=== PATIENT | male | born 1950 | race Caucasian/White ===

== ENCOUNTER 2020-08-22 12:23 | Emergency (ER) | payer MEDICARE, SELFPAY ==
[2020-08-22 12:35] VITALS: BP 146/98; PULSE 96; RESP 13; TEMP 37.4; O2SAT 96; BMI 33.6
--- NOTE | 2020-08-22 12:41 | ED_ITS ---
HPI - General Adult General Chief complaint: Abdominal Pain Stated complaint: BODY ACHES,SOB,?COVID Time Seen by Provider: 08/22/20 12:41 Source: patient Mode of arrival: EMS Limitations: no limitations History of Present Illness HPI narrative: Patient with abdominal pain, weakness, cough, no fever. His partner has COVID. Onset (ago): hour(s) Severity: moderate Associated symptoms: fever/chills, headaches, malaise and weakness Related Data Allergies Allergy/AdvReac Type Severity Reaction Status Date / Time No Known Allergies Allergy Unverified 04/12/20 15:48 Review of Systems Constitutional: Constitutional: Reports no additional constitutional com plaints Eyes: Eyes: Reports no additional eye complaints ENT: Denies dizziness Cardiovascular: Cardiovascular: Reports no additional cardiovascular complaints Respiratory: Respiratory: Reports as per HPI Gastrointestinal: Gastrointestinal: Reports no additional gastrointestinal complaints Musculoskeletal: Musculoskeletal: Reports no additional musculoskeletal complaints Integumentary/Breasts: Skin/Breast: Denies rash Neurologic: Reports system reviewed and no additional complaints, except as documented, Denies dizziness and Denies Sensory deficit (Neuro) Psychiatric: Psychiatric: Denies anxiety [facility] Past Medical History Medical History Diabetes mellitus, type 2 Hypercholesteremia Hypertension Social History Social History Use of substances other than those prescribed or required for medical reasons: No Any prior treatment program specific to substance use: No Advance Directives: No Advance Directives Information Provided: No Physical Exam Vital Signs: Vital Signs: Last Vital Signs Temp 98.3 F 08/22/20 15:33 Pulse 84 08/22/20 15:33 Resp 20 08/22/20 15:33 BP 163/99 H 08/22/20 15:33 Pulse Ox 96 08/22/20 13:54 Body Mass Index 33.6 Const: Other: coughing General: healthy appearing Nutritional Appearance: average body habitus Orientation/consciousness: oriented to person and patient oriented x3 Limitations: no limitations HENMT: Head: Yes normal to inspection Ears: external ears normal General nose exam: Normal external nose present Mouth: Normal oral and palatal mucosa present and oropharynx normal Throat: Yes posterior oropharynx normal Eyes: General: appearance normal, both eyes and all related structures Neck: Other: supple Neck: Yes normal visual inspection Chest: Chest palpation & inspection: normal inspection of the chest Resp: Auscultation: clear to auscultation bilaterally Cardio: Jugular venous distension: no JVD Rate: regular rate Rhythm: regular rhythm Heart sounds: S1 normal heart sound present and S2 normal heart sound present GI: Other: abdomen is soft but tender from coughing Inspection: Yes normal to inspection Palpation (GI): Soft to palpation, nontender and No hepatosplenomegaly present Auscultation: normal bowel sounds : General: Yes no CVA tenderness Back/Spine/Pelvis: Back: no CVA tenderness Skin: General skin exam: no rashes or lesions noted Neuro: General: oriented to person and patient oriented x3 Cranial nerves: Yes CN's II-XII intact bilaterally Motor exam (neuro): 5/5 motor strength present throughout Sensory Exam: No Sensory deficit (Neuro) Extrem: General: Yes normal to inspection Psych: Appearance: grossly normal Course Course Course Narrative: Patient with COVID, has interstitial infiltrates consistent with COVID but normal oxygen will dc home Medical Decision Making [facility] Narrative Medical decision making narrative: Considered COVID, URI, abdominal process Lab Data Result diagrams: 08/22/20 13:07 08/22/20 14:29 Labs: Lab Results 08/22/20 08/22/20 08/22/20 Range/Units 13:07 13:07 14:29 WBC 3.8 L (4.8-10.8) X10*3/uL RBC 4.66 (4.60-5.80) X10*6/uL Hgb 14.9 (14.0-18.0) g/dl Hct 43.8 (42-52) % MCV 94.0 (80-98) fL MCH 32.0 (27.0-33.0) pg MCHC 34.0 (31.0-36.0) g/dl RDW 12.4 (11.0-16.0) % Plt Count 126 L (160-400) X10*3/uL MPV 9.9 (9.4-12.4) fL Immature Gran % (Auto) 0.3 (0.0-0.4) % Neut % (Auto) 53.3 (45-73) % Lymph % (Auto) 34.1 (20-40) % [place] % (Auto) 12.0 H (2-11) % Eos % (Auto) 0.0 (0-4) % Baso % (Auto) 0.3 (0-2) % Lymph # (Auto) 1.3 (1.2-4.9) X10*3/uL [place] # (Auto) 0.5 (0.1-1.2) X10*3/uL Eos # (Auto) 0.0 (0.0-0.4) X10*3/uL Baso # (Auto) 0.0 (0.0-0.2) X10*3/uL Abs Immat Gran (auto) 0.01 (0.00-0.03) X10*3/uL Absolute Neuts (auto) 2.0 (2.0-8.3) X10*3/uL Absolute Nucleated RBC 0.000 (0.0-0.012) X10*3/uL Nucleated RBC % (auto) 0.0 (0.0-0.2) /100WBC Sodium 135 (135-145) mmol/L Potassium 3.6 (3.3-5.1) mmol/l Chloride 107 (96-108) mmol/L Carbon Dioxide 20 L (22-29) mmol/L Anion Gap 12 (12-20) BUN 13 (9-16) mg/dL Creatinine 1.01 (0.5-1.4) mg/dL Estim Creat Clear Calc 68.4 Estimated GFR > 60 Random Glucose 124 H (60-115) mg/dL Calcium 7.3 L (8.4-10.2) mg/dL Coronavirus (PCR) POSITIVE A (Negative) Influenza Type A (PCR) NEGATIVE (Negative) Influenza Type B (PCR) NEGATIVE (Negative) RSV RNA Qual (PCR) NEGATIVE (Negative) Discharge Plan Discharge Clinical Impression: COVID-19 Patient Disposition: Home, Self-Care Instructions: COVID-19 (Coronavirus Disease 2019) (ED) Referrals: Physician,Unknown [Primary Care Provider] - 2 days
--- NOTE | 2020-08-22 12:52 | XR_ITS ---
EXAMINATION: XR CHEST CLINICAL INFORMATION: Cough. COMPARISON: None TECHNIQUE: Frontal view of the chest was obtained. FINDINGS: Lungs are well-expanded with bilateral patchy opacities likely interstitial pneumonitis. No consolidation seen. No pleural effusion. The heart size and pulmonary vasculature is normal. No gross bony abnormality. XR/XR chest 1V IMPRESSION: Bilateral patchy opacities, question interstitial pneumonitis. Recommend follow-up chest x-ray 7-10 days after treatment.
[2020-08-22] MEDS: Ketorolac Tromethamine 30 MG/ML VIAL IVPUSH (13:11)
[2020-08-22] MEDS: 0.9 % Sodium Chloride 1,000 ML 999 ML IVCONT ×2 (13:12→13:54)
[2020-08-22 13:14] LABS: MANUAL DIFF FLAG NO
[2020-08-22 13:18] LABS: Basophils Percent Auto 0.3 % (0-2); Hematocrit 43.8 % (42-52); Hemoglobin 14.9 g/dl (14.0-18.0); Imm Gran Abs Auto 0.01 X10*3/uL (0.00-0.03); Imm Gran Pct Auto 0.3 % (0.0-0.4); Lymphocytes Absolute Auto 1.3 X10*3/uL (1.2-4.9); Lymphocytes Percent Auto 34.1 % (20-40); Mean Platelet Volume 9.9 fL (9.4-12.4); Monocytes Absolute Auto 0.5 X10*3/uL (0.1-1.2); Neutrophils Percent Auto 53.3 % (45-73); Platelet Count 126 X10*3/uL (160-400); Red Blood Count 4.66 X10*6/uL (4.60-5.80); Red Cell Distribution Width 12.4 % (11.0-16.0); White Blood Count 3.8 X10*3/uL (4.8-10.8)
[2020-08-22 13:54] VITALS: BP 153/94; PULSE 88; RESP 15; O2SAT 96
[2020-08-22 14:02] LABS: Influenza A PCR NEGATIVE (Negative); Influenza B PCR NEGATIVE (Negative); Resp Syncy Virus RNA Qual PCR NEGATIVE (Negative); SARS COV2 PCR INHOUSE POSITIVE (Negative)
[2020-08-22 15:14] LABS: Anion Gap 12 (12-20); Blood Urea Nitrogen 13 mg/dL (9-16); Carbon Dioxide 20 mmol/L (22-29); Chloride 107 mmol/L (96-108); Creatinine Clr Calc Pharmacy 68.4; Estimated Glomerular Filt Rate > 60; Glucose Random 124 mg/dL (60-115); Potassium 3.6 mmol/l (3.3-5.1); Sodium 135 mmol/L (135-145)
[2020-08-22 15:23] LABS: Calcium 7.3 mg/dL (8.4-10.2)
[2020-08-22 15:33] VITALS: BP 163/99; PULSE 84; RESP 20; TEMP 36.8
== END 2020-08-22 16:05 | disposition home or self-care (01) ==
PROVIDERS: Emergency Provider Emergency Medicine
DX: U07.1 COVID-19 (principal); R51.9 Headache, unspecified; R05 Cough; M79.10 Myalgia, unspecified site
CPT/HCPCS: 0241U; 36415; 71045; 80048; 85025; 96361; 96374; 99284; J1885

== ENCOUNTER 2020-09-03 11:26 | Emergency (ER) | payer MEDICARE, SELFPAY ==
--- NOTE | 2020-09-03 11:28 | ED.SOB ---
HPI - SOB/Dyspnea General Chief Complaint: General Medical Stated Complaint: DIFF BREATHING,+COVID Time Seen by Provider: 09/03/20 11:28 Source: patient and EMS Mode of arrival: EMS Limitations: no limitations History of Present Illness HPI Narrative: dx with COVID 08/22 here with R sided sinus pain and congestion - states it is causing discomfort has not been taking OTC medications, BP up on arrival but much lower on rechekc - taking his medications as Rx MD elicited complaint: shortness of breath (SINUS congestion not shortness of breath) Pertinent past history: diabetes Onset (ago): day(s) (2) Context: recent illness (COVID positive) Timing: constant Severity: mild Exacerbating factors: nothing Relieving factors: nothing Associated symptoms: denies other symptoms Treatment prior to arrival: none Related Data Previous Rx's Medication Instructions Recorded amoxicillin-pot clavulanate 1 tab PO BID #14 tab 09/03/20 [Augmentin] prednisone 20 mg PO DAILY 4 Days #4 tab 09/03/20 Allergies Allergy/AdvReac Type Severity Reaction Status Date / Time No Known Allergies Allergy Verified 09/03/20 11:30 Review of Systems Review of Systems: Constitutional : No Fever, No Chills, No Fatigue, No Malaise ENT/Mouth : No sore throat, No Rhinorrhea, sinus pain, nasal congestion Eyes: No Eye Pain, No Swelling, No Redness Cardiovascular : No Chest Pain, No SOB, No Dyspnea on Exertion, No Orthopnea, No Edema, No Palpitations Respiratory : No Cough, No Sputum, No Wheezing Gastrointestinal : No Nausea, No Vomiting, No Diarrhea, No Constipation, No abdominal Pain, No Hematochezia, No Melena Genitourinary : No Dysuria, No Urinary Frequency, No Hematuria, Musculoskeletal : No joint pain, No Myalgias, No Joint Swelling Skin : No Skin Lesions, No rash Neuro : No Weakness, No Numbness, No Dizziness, No Headache PMFSH Past Medical History Attestation statement: The following information was validated with the patient. Medical History Diabetes mellitus, type 2 Hypercholesteremia Hypertension Social History Social History (Updated 09/03/20 @ 11:57 by Oneyda Rivera DO) Smoking Status: Never smoker Advance Directives: No Advance Directives Information Provided: No Physical Exam Vital Signs: Vital Signs: Last Vital Signs Temp 98.7 F 09/03/20 11:30 Pulse 85 09/03/20 11:30 Resp 20 09/03/20 11:30 BP 200/127 H 09/03/20 11:30 Pulse Ox 98 09/03/20 11:30 Body Mass Index 31.9 Appearance: Alert. Oriented X3. No acute distress. Eyes: Pupils equal, round and reactive to light. ENT: Pharynx normal. R max sinus mild swelling moderate ttp - R nares very swollen boggy turbinate Neck: Normal inspection. Neck supple. CVS: Normal heart rate and rhythm. Pulses normal. Respiratory: No respiratory distress. Breath sounds normal. Abdomen: Soft and nontender. Skin: Skin warm and dry. Normal skin color. Normal skin turgor. Extremities: No lower extremity edema. No calf ttp Neuro: Oriented X 3. No motor deficit. No sensory deficit. Course Course Course Narrative: repeat BP 165/105 has no headache CP SOB just feels pressure R max sinus area, not toxic, no neuro deficits MDM - SOB/Dyspnea MDM Narrative Medical decision making narrative: 70 yo male with DM and HTN dx with COVID 08/22 has no complaints other than R nostril being stuffed up - no headache/chest pain/sob - he has sinusitis clinically and on exam, BP markedly lower will start on augmentin nasal spary x 1, low dose steroids normal neuro exam, no hypoxia doing well Discharge Plan Discharge Clinical Impression: Sinusitis Qualifiers: Sinusitis location: maxillary Chronicity: acute Recurrence: non-recurrent Qualified Code(s): J01.00 - Acute maxillary sinusitis, unspecified Patient Disposition: Home, Self-Care Instructions: Sinusitis (ED) Additional Instructions: return to ED for any worsening symptoms or concerns monitor blood sugars prednisone can raise your blood sugars Prescriptions: New prednisone 20 mg tablet 20 mg PO DAILY 4 Days Qty: 4 RF: 0 amoxicillin-pot clavulanate [Augmentin] 875-125 mg tablet 1 tab PO BID Qty: 14 RF: 0 Referrals: Physician,Unknown [Primary Care Provider] - 2 days (if not better, recheck BP tomorrow)
[2020-09-03 11:30] VITALS: BP 180/120; BP 200/127; PULSE 85; PULSE 90; RESP 20; TEMP 37.1; O2SAT 98; BMI 31.9
[2020-09-03 11:52] VITALS: BP 165/108
[2020-09-03] MEDS: predniSONE 20 MG TABLET PO (12:00)
[2020-09-03] MEDS: Amoxicillin/Potassium Clav 875 MG TABLET PO (12:00)
[2020-09-03] MEDS: Oxymetazoline HCl 0.05 % Nasal 15 ML SPRAY 2 SPRAY NOSTRIL-B (12:00)
== END 2020-09-03 12:28 | disposition home or self-care (01) ==
PROVIDERS: Emergency Provider Emergency Medicine
DX: J01.00 Acute maxillary sinusitis, unspecified (principal); Z86.16 Personal history of COVID-19; E11.9 Type 2 diabetes mellitus without complications; I10 Essential (primary) hypertension
CPT/HCPCS: 99283

== ENCOUNTER 2020-12-21 12:16 | Outpatient (REF) | payer MEDICARE, SELFPAY | END 2020-12-21 12:17 | disposition home or self-care (01) | LOC: HO.LNP 12:16 | PROVIDERS: Visit Provider Specialist | DX: H02.824 Cysts of left upper eyelid (principal) | CPT/HCPCS: 88305 ==

== ENCOUNTER 2020-12-29 22:52 | Emergency (ER) | payer MEDICARE, SELFPAY ==
--- NOTE | ~2020-12-29 | XR_ITS ---
EXAMINATION: XR SHOULDER , RIGHT CLINICAL INFORMATION: Fall COMPARISON: None available at the time of this dictation. TECHNIQUE: AP external rotation, Grashey, scapular Y, and axillary views of the shoulder. FINDINGS: BONES: There is no fracture or dislocation, no osteolytic or osteoblastic lesion. JOINTS: Glenohumeral joint is properly positioned. AC joint is unremarkable. SOFT TISSUE AND INCLUDED LUNG: Normal. XR/XR shoulder RT min 2V IMPRESSION: No fracture or dislocation.
--- NOTE | ~2020-12-29 | XR_ITS ---
EXAMINATION: XR chest 2V CLINICAL INFORMATION: Fall COMPARISON: Prior chest x-ray July 2020 TECHNIQUE: XR chest 2V Lungs and Clari: Both lungs are clear. Pleura: Normal. Costophrenic angles are sharp. No pneumothorax. Heart: The heart is normal in size. Mediastinum: The mediastinum is within normal limits.. Bones: Skeletal structures included are normal for patient's age. XR/XR chest 2V IMPRESSION: No radiographic evidence of acute cardiopulmonary disease.
--- NOTE | ~2020-12-29 | CT_ITS ---
EXAMINATION: CT CHEST WITHOUT CONTRAST CLINICAL INFORMATION: Right chest wall pain COMPARISON: Chest x-ray 12/29/2020 TECHNIQUE: Multidetector volumetric CT imaging of the chest was done. Axial MIP volume rendering provided. Sagittal and coronal reformatted images were obtained. This CT examination was performed using dose optimization techniques as appropriate, variously including the following: *Automated exposure control *Adjustment of mA and/or kV according to patient size (this includes techniques or standardized protocols for targeted exams where dose is matched to indication/reason for exam; i.e. extremities or head) *Use of iterative reconstruction technique DLP: 327 mGy-cm FINDINGS: LUNGS: No regions of consolidation bilaterally. Bullae are noted at the right lung apex. Minimal dependent atelectasis bilaterally. There is a 5 mm right apical lung nodule on image 100/491. MEDIASTINUM: The thyroid gland appears diminutive. There are subcentimeter mediastinal lymph nodes within the range of normal variation. Cardiac size is within normal limits; no pericardial effusion. Coronary artery calcifications are present. Scattered atherosclerotic calcifications are present. PLEURA: There is no pleural effusion. No pleural mass or thickening. AXILLA/CHEST WALL: No focal chest wall abnormality identified. No lymphadenopathy. UPPER ABDOMEN: There is a 3.5 cm left renal cyst. There is a 0.4 cm left renal calculus. OSSEOUS STRUCTURES: Multilevel endplate osteophytes noted in the spine. CT/CT chest wo con IMPRESSION: 1. No chest wall abnormality identified. 2. Coronary artery calcifications. Correlation with cardiac risk factors is recommended. 3. Right upper lobe 5 mm lung nodule. According to the UPDATED 2017 Fleischner Society recommendations, the advised follow-up imaging for solid nodules < 6 mm is: LOW RISK PATIENT: No routine follow-up. HIGH RISK PATIENT: Optional CT at 12 months.
[2020-12-29 22:58] VITALS: BP 147/84; PULSE 72; RESP 20; TEMP 36.3; O2SAT 98; BMI 32.5
--- NOTE | 2020-12-30 02:36 | ED.FALL ---
HPI - Fall General Chief Complaint: Fall Stated Complaint: Shoulder Pain/Fall Time Seen by Provider: 12/30/20 02:36 Source: patient Mode of arrival: ambulatory History of Present Illness HPI Narrative: This is a 70-year-old male who states that he was trying to get out of his automatic recliner became unsteady and fell onto the concrete floor onto his right side this evening after few alcoholic beverages. He does not recall the exact sequence of events but denies hitting his head or loss of consciousness. He is currently complaining of right shoulder and right chest wall discomfort. Related Data Previous Rx's Medication Instructions Recorded amoxicillin-pot clavulanate 1 tab PO BID #14 tab 09/03/20 [Augmentin] prednisone 20 mg PO DAILY 4 Days #4 tab 09/03/20 Allergies Allergy/AdvReac Type Severity Reaction Status Date / Time No Known Allergies Allergy Verified 09/03/20 11:30 Review of Systems Review of Systems: Pertinent positives and negatives as stated in HPI 10 point review of systems is otherwise negative. [facility] Past Medical History Source: nursing notes reviewed Medical History Diabetes mellitus, type 2 Hypercholesteremia Hypertension Social History Social History Advance Directives: No Advance Directives Information Provided: No Physical Exam Vital Signs: Vital Signs: Last Vital Signs Temp 97.4 F 12/29/20 22:58 Pulse 72 12/29/20 22:58 Resp 20 12/29/20 22:58 BP 147/84 H 12/29/20 22:58 Pulse Ox 98 12/29/20 22:58 Body Mass Index 32.5 VITAL SIGNS: Reviewed. GENERAL: Well developed, well nourished, in no acute distress. HEAD: Normocephalic/atraumatic, EYES: PERRLA, EOMI OROPHARYNX: no oral lesions noted, posterior pharynx clear NECK: Supple, no adenopathy LUNGS: Normal breath sounds. No adventitious sounds or accessory muscle use. SpO2<98> CHEST WALL: No crepitus noted on palpation but tenderness across the anterolateral lower ribs CARDIOVASCULAR: Regular rate and rhythm without noted murmurs, no JVD or lower extremity edema. ABDOMEN: Soft, non-tender, non-distended with bowel sounds. Course Course Course Narrative: Is a 70-year-old male with history and clinical presentation consistent with mechanical fall and on review of all imaging there are no acute findings to suggest rib fracture, pneumothorax. Patient was provided with combination analgesics and on re-evaluation has had improvement in his pain. The be discharged home in stable condition. Discharge Plan Discharge Clinical Impression: Chest wall pain Patient Disposition: Home, Self-Care Instructions: Chest Wall Pain (ED) Additional Instructions: 1. Reanude todos los medicamentos caseros seg?n lo prescrito. 2. Se recomienda el uso de Tylenol 1000 mg, por v?a oral, cada 6 horas seg?n sea necesario para controlar el dolor. No exceda los 4000 mg en 24 horas. 3. Se recomienda el uso de parche de lidoca?na, est? disponible sin receta, se aplica en el ?paige de m?ximo dolor jason se indica en el paquete exterior. 4. Shelton un seguimiento con bailey proveedor de atenci?n primaria en los pr?ximos 2-3 d?as para riley reevaluaci?n. Regrese a la elier de emergencias si los s?ntomas empeoran. Prescriptions: No Action prednisone 20 mg tablet 20 mg PO DAILY 4 Days Qty: 4 RF: 0 amoxicillin-pot clavulanate [Augmentin] 875-125 mg tablet 1 tab PO BID Qty: 14 RF: 0 Referrals: Physician,Unknown [Primary Care Provider] - 2 days Print Language: Slovak
[2020-12-30] MEDS: Acetaminophen 325 MG TABLET 975 MG PO (03:01)
[2020-12-30] MEDS: Lidocaine 4 % Patch ADH..PATCH 1 PATCH TRANSDERMA (03:02)
[2020-12-30] MEDS: Ibuprofen 400 MG TABLET PO (03:02)
[2020-12-30 04:00] VITALS: BP 148/72; PULSE 89; RESP 18; TEMP 36.8; O2SAT 97
[2020-12-30 06:00] VITALS: BP 138/78; PULSE 80; RESP 18; TEMP 36.6; O2SAT 98
== END 2020-12-30 06:29 | disposition home or self-care (01) ==
PROVIDERS: Emergency Provider Student in an Organized Health Care Education/Training Program
DX: R07.89 Other chest pain (principal); M25.511 Pain in right shoulder; E11.9 Type 2 diabetes mellitus without complications; E78.00 Pure hypercholesterolemia, unspecified; I10 Essential (primary) hypertension; Z91.81 History of falling; Z86.16 Personal history of COVID-19
CPT/HCPCS: 71046; 71250; 73030; 99284

== ENCOUNTER 2022-07-17 09:56 | Outpatient (REF) | payer MEDICARE, SELFPAY ==
--- NOTE | ~2022-07-17 | XR_ITS ---
EXAMINATION: XR RIBS, RIGHT CLINICAL INFORMATION: Pain COMPARISON: Previous chest x-ray and chest CT December 2020 TECHNIQUE: 3 views of the right ribs and one view of the chest were obtained. FINDINGS: Lungs are clear. No consolidation, pneumothorax, or pleural effusion. The cardiomediastinal silhouette and pulmonary vasculature are normal. Degenerative changes of the spine. Ribs are intact. No fractures are identified. XR/XR ribs RT min 3V w CXR1V IMPRESSION: Unremarkable right ribs and chest x-ray.
--- NOTE | ~2022-07-17 | XR_ITS ---
EXAMINATION: XR THORACOLUMBAR SPINE CLINICAL INFORMATION: Back pain. No known trauma. COMPARISON: CT chest 12/30/2020, chest and right ribs 07/17/2022 TECHNIQUE: Thoracic spine is imaged in 3 views. FINDINGS: There is normal thoracic vertebral segmentation with 12 rib-bearing thoracic vertebrae of normal height and normal thoracic kyphosis. There is no vertebral compression, spondylolisthesis, destructive process, or paraspinal soft tissue swelling. Again, there is mild multilevel degenerative disc changes mid to lower thoracic spine with variable mild disc narrowing and vertebral spurring. XR/XR thoracic spine 2V IMPRESSION: 1. Mild multilevel degenerative disc changes mid and lower thoracic spine. 2. No vertebral compression, spondylolisthesis, or destructive process.
== END 2022-07-17 09:57 | disposition home or self-care (01) ==
LOC: HO.XRAY 09:56
PROVIDERS: PCP Internal Medicine; Visit Provider Internal Medicine
DX: M54.6 Pain in thoracic spine (principal); R07.81 Pleurodynia
CPT/HCPCS: 71101; 72070

== ENCOUNTER 2022-08-01 13:38 | Outpatient (REF) | payer MEDICARE, SELFPAY ==
--- NOTE | ~2022-08-01 | CT_ITS ---
EXAMINATION: CT ABDOMEN AND PELVIS WITHOUT CONTRAST CLINICAL INFORMATION: Flank pain COMPARISON: None TECHNIQUE: Multidetector volumetric imaging was performed from the superior aspect of the liver through the pubic symphysis. Sagittal and coronal reformatted images were obtained on the technologist's workstation. This CT examination was performed using dose optimization techniques as appropriate, variously including the following: *Automated exposure control *Adjustment of mA and/or kV according to patient size (this includes techniques or standardized protocols for targeted exams where dose is matched to indication/reason for exam; i.e. extremities or head) *Use of iterative reconstruction technique DLP: 558 mGy-cm FINDINGS: LUNG BASES: The visualized lung bases are unremarkable. LIVER, GALLBLADDER, AND BILIARY TREE: There is a cyst along the anterior margin of the liver. Although evaluation is limited without IV contrast, no suspicious or concerning liver lesion seen. The gallbladder is unremarkable with no evidence of radiopaque gallstones, gallbladder wall thickening, or obvious pericholecystic inflammatory changes. PANCREAS: Unremarkable. SPLEEN: Unremarkable. ADRENAL GLANDS: Unremarkable. KIDNEYS AND URETERS: 4.7 cm simple cyst exophytic from the anterior cortex of the left kidney. 1 cm cyst exophytic from the posterior cortex of the upper pole the right kidney. No imaging follow-up recommended for these simple cysts. There is a 4 mm nonobstructing calculus in the upper pole the left kidney adjacent the cyst. No hydronephrosis. BLADDER: Unremarkable. GASTROINTESTINAL TRACT: Stomach and small bowel are nondilated. Normal appendix. Sigmoid diverticulosis. No evidence of colitis or diverticulitis. ABDOMINAL WALL: Small fat-containing umbilical hernia. LYMPH NODES: Normal. VASCULAR: Circumferential calcified atherosclerotic changes of the normal caliber abdominal aorta. PELVIC VISCERA: Unremarkable. OSSEOUS STRUCTURES: No acute or suspicious osseous abnormality. CT/CT abdomen pelvis wo IV con IMPRESSION: No acute CT findings. No significant change from prior study. Fleischner guidelines were followed.
== END 2022-08-01 13:39 | disposition home or self-care (01) ==
LOC: HO.CT 13:38
PROVIDERS: PCP Internal Medicine; Visit Provider Internal Medicine
DX: N20.0 Calculus of kidney (principal)
CPT/HCPCS: 74176

== ENCOUNTER 2023-01-04 07:39 | Observation (INO) | payer MEDICARE, SELFPAY ==
[2023-01-04] VITALS (8 sets, daily range): BP systolic 120–204; BP diastolic 80–115; PULSE 75–93; RESP 16–20; TEMP 36.7–37.6; O2SAT 95–99; BMI 34.7
--- NOTE | ~2023-01-04 | CT_ITS ---
EXAMINATION: CT ABDOMEN AND PELVIS WITHOUT CONTRAST CLINICAL INFORMATION: Left lower quadrant pain COMPARISON: Previous CT of the abdomen and pelvis most recent July 2022 TECHNIQUE: Multidetector volumetric imaging was performed from the superior aspect of the liver through the pubic symphysis. Sagittal and coronal reformatted images were obtained on the technologist's workstation. This CT examination was performed using dose optimization techniques as appropriate, variously including the following: *Automated exposure control *Adjustment of mA and/or kV according to patient size (this includes techniques or standardized protocols for targeted exams where dose is matched to indication/reason for exam; i.e. extremities or head) *Use of iterative reconstruction technique DLP: 634 mGy-cm FINDINGS: LUNG BASES: The visualized lung bases are unremarkable. LIVER, GALLBLADDER, AND BILIARY TREE: The liver is low in attenuation suggestive of fatty infiltration. The gallbladder is unremarkable with no evidence of radiopaque gallstones, gallbladder wall thickening, or obvious pericholecystic inflammatory changes. PANCREAS: Unremarkable. SPLEEN: Unremarkable. ADRENAL GLANDS: Unremarkable. KIDNEYS AND URETERS: Bilateral low-attenuation renal lesions suggestive of cysts, largest measuring 4 cm in the upper pole of the left kidney. No imaging follow-up recommended. Small 3 mm left upper pole renal stone. BLADDER: Unremarkable. GASTROINTESTINAL TRACT: Diverticulosis of the colon. Wall thickening of the distal left and proximal sigmoid colon. There is stranding of the surrounding fat. Findings are suggestive of diverticulitis. Fat stranding tracks along the lower left anterior pararenal fascia. Potential developing abscess in this region should be considered no evidence of obstruction or free air. The small and large bowel are otherwise normal. The appendix is normal. The stomach is normal. ABDOMINAL WALL: No significant hernia is appreciated. LYMPH NODES: Normal. VASCULAR: Atherosclerotic disease. No aneurysm. PELVIC VISCERA: Unremarkable. OSSEOUS STRUCTURES: Mild degenerative changes of the spine. CT/CT abdomen pelvis wo IV con IMPRESSION: Diverticulitis of the distal left and proximal sigmoid colon. There is extensive stranding of the fat tracking along the left inferior anterior pararenal fascia. Developing abscess should be considered. No evidence of perforation or obstruction. Fatty liver. Small left renal stone. Fleischner guidelines were followed.
[2023-01-04 08:07] LABS: MANUAL DIFF FLAG NO
[2023-01-04 08:08] LABS: Basophils Percent Auto 0.2 % (0-2); Eosinophils Absolute Auto 0.1 X10*3/uL (0.0-0.4); Eosinophils Percent Auto 0.7 % (0-4); Hematocrit 38.6 % (42.0-52.0); Hemoglobin 13.2 g/dl (14.0-18.0); Imm Gran Abs Auto 0.03 X10*3/uL (0.00-0.03); Imm Gran Pct Auto 0.2 % (0.0-0.4); Lymphocytes Absolute Auto 1.9 X10*3/uL (1.2-4.9); Lymphocytes Percent Auto 15.3 % (20-40); Mean Corpuscular HGB Conc 34.2 g/dl (31.0-36.0); Mean Corpuscular Hemoglobin 32.2 pg (27.0-33.0); Mean Corpuscular Volume 94.1 fL (80.0-98.0); Mean Platelet Volume 9.9 fL (9.4-12.4); Monocytes Percent Auto 8.1 % (2-11); Neutrophils Absolute Auto 9.4 x10*3/uL (2.0-8.3); Neutrophils Percent Auto 75.5 % (45-73); Platelet Count 191 X10*3/uL (160-400); Red Cell Distribution Width 12.4 % (11.0-16.0); White Blood Count 12.5 X10*3/uL (4.8-10.8)
[2023-01-04 08:26] LABS: Alanine Aminotransferase 23 U/L (0-40); Alkaline Phosphatase 68 U/L (39-117); Anion Gap 16 (12-20); Aspartate Amino Transferase 17 U/L (5-37); Bilirubin Total 0.9 mg/dL (0.0-1.0); Blood Urea Nitrogen 15 mg/dL (9-16); Calcium 9.1 mg/dL (8.4-10.2); Carbon Dioxide 21 mmol/L (22-29); Chloride 105 mmol/L (96-108); Creatinine Clr Calc Pharmacy 61.5; Estimated Glomerular Filt Rate > 60; Glucose Random 155 mg/dL (60-115); Potassium 3.9 mmol/L (3.3-5.1); Sodium 138 mmol/L (135-145); Total Protein 7.8 g/dL (6.5-8.0)
--- NOTE | 2023-01-04 09:00 | PC.NURSE ---
alert and oriented, resp even and unlabored. pt hypertensive at this time, pt states did not take home meds for hypertension this morning. complaining of abd pain radiating to his back, feels same as diverticulitis.
--- NOTE | 2023-01-04 09:16 | ED_ITS ---
HPI - Abdominal Pain General Chief Complaint: Abdominal Pain Stated Complaint: back and groin pain Time Seen by Provider: 01/04/23 08:53 Source: patient Mode of arrival: ambulatory History of Present Illness HPI narrative: 72-year-old male with history of hypertension and diabetes presents with left lower quadrant pain for 2 days with some mild nausea but no vomiting and no fevers/chills and denies any urinary difficulties. Patient states that he has not been drinking much as he thought that the pain would resolve. Related Data Previous Rx's Medication Instructions Recorded amoxicillin 875 mg-potassium 1 tab PO BID #14 tabs 09/03/20 clavulanate 125 mg tablet (Augmentin) prednisone 20 mg tablet 20 mg PO DAILY 4 days #4 tabs 09/03/20 Allergies Allergy/AdvReac Type Severity Reaction Status Date / Time No Known Allergies Allergy Verified 09/03/20 11:30 Review of Systems Review of Systems Pertinent positives and negatives as stated in HPI PMFSH Past Medical History Source: nursing notes reviewed Medical History Diabetes mellitus, type 2 Hypercholesteremia Hypertension Social History Social History Smoked in Last 30 Days: No Advance Directives: No Physical Exam ED Vital Signs: Vital Signs - 24 hr 01/04/23 07:44 01/04/23 08:33 01/04/23 10:12 Temperature 98.2 F 98.1 F 98.6 F Pulse Rate 93 85 86 Respiratory Rate 18 18 16 Blood Pressure 204/104 H 195/99 H 178/95 H Pulse Oximetry 99 99 97 Oxygen Delivery Method Room Air Room Air Room Air 01/04/23 11:35 Temperature 98.5 F Pulse Rate 75 Respiratory Rate 16 Blood Pressure 188/95 H Pulse Oximetry 98 Oxygen Delivery Method Room Air BMI result Body Mass Index 34.7 VITAL SIGNS: Reviewed. GENERAL: Well developed, well nourished, in no acute distress. HEAD: Normocephalic/atraumatic EYES: PERRLA, EOMI OROPHARYNX: no oral lesions noted, posterior pharynx clear NECK: Supple, no adenopathy LUNGS: Normal breath sounds. No adventitious sounds or accessory muscle use. SpO2<99> CARDIOVASCULAR: Regular rate and rhythm without noted murmurs ABDOMEN: Soft, left lower quadrant pain without rebound,, non-distended with bowel sounds. MUSCULOSKELETAL: No tenderness, deformities, or effusions noted on gross inspection. EXTREMITIES: No cyanosis, clubbing or edema. SKIN: Inspection of the skin reveals no rashes NEUROLOGIC: Alert and oriented x 4. Strength and sensation to light touch were grossly intact x 4. Medical Decision Making Medical Decision Making [facility] Narrative: 0917: I suspect infection, diverticulitis, lactic acid/blood culture/antibiotics ordered as well as IV fluids though patient does not meet current criteria for sepsis fluids. I reviewed all investigations and given CT scan findings in the context of patient's diabetes I am discussing with general surgery regarding admission for 24 hours of IV antibiotics. I also spoke with inpatient hospitalist who accepts admission. Dr. Pino will consult on the patient. Differential Diagnosis Please see the discussion above Consult Healthcare Provider Management of the patient was discussed with: Hospitalist and Software Applications Specialist Please see the discussion above Lab Data Please see the discussion above 01/04/23 08:03 01/04/23 08:03 Labs: Lab Results 01/04/23 01/04/23 01/04/23 Range/Units 08:03 08:03 09:47 WBC 12.5 H (4.8-10.8) X10*3/uL RBC 4.10 L (4.60-5.80) X10*6/uL Hgb 13.2 L (14.0-18.0) g/dl Hct 38.6 L (42.0-52.0) % MCV 94.1 (80.0-98.0) fL MCH 32.2 (27.0-33.0) pg MCHC 34.2 (31.0-36.0) g/dl RDW 12.4 (11.0-16.0) % Plt Count 191 (160-400) X10*3/uL MPV 9.9 (9.4-12.4) fL Immature Gran % (Auto) 0.2 (0.0-0.4) % Neut % (Auto) 75.5 H (45-73) % Lymph % (Auto) 15.3 L (20-40) % [place] % (Auto) 8.1 (2-11) % Eos % (Auto) 0.7 (0-4) % Baso % (Auto) 0.2 (0-2) % Lymph # (Auto) 1.9 (1.2-4.9) X10*3/uL [place] # (Auto) 1.0 (0.1-1.2) X10*3/uL Eos # (Auto) 0.1 (0.0-0.4) X10*3/uL Baso # (Auto) 0.0 (0.0-0.2) X10*3/uL Abs Immat Gran (auto) 0.03 (0.00-0.03) X10*3/uL Absolute Neuts (auto) 9.4 H (2.0-8.3) x10*3/uL Absolute Nucleated RBC 0.000 (0.0-0.012) X10*3/uL Nucleated RBC % (auto) 0.0 (0.0-0.2) /100WBC Sodium 138 (135-145) mmol/L Potassium 3.9 (3.3-5.1) mmol/L Chloride 105 (96-108) mmol/L Carbon Dioxide 21 L (22-29) mmol/L Anion Gap 16 (12-20) BUN 15 (9-16) mg/dL Creatinine 1.07 (0.5-1.4) mg/dL Estim Creat Clear Calc 61.5 Estimated GFR > 60 Random Glucose 155 H (60-115) mg/dL Lactic Acid (0.5-2.0) mmol/L Calcium 9.1 D (8.4-10.2) mg/dL Total Bilirubin 0.9 (0.0-1.0) mg/dL AST 17 (5-37) U/L ALT 23 (0-40) U/L Alkaline Phosphatase 68 (39-117) U/L Total Protein 7.8 (6.5-8.0) g/dL Albumin 4.0 (3.5-5.0) g/dL Urine Color Yellow Urine Appearance Clear Urine pH 6.0 (5.0-9.0) Ur Specific [place] 1.015 (1.005-1.025) Urine Protein 100 (2+) H (Neg-Trace) mg/dL Urine Glucose (UA) Negative (Negative) mg/dL Urine Ketones 15 (Negative) mg/dL Urine Blood Negative (Negative) Urine Nitrite Negative (Negative) Ur Leukocyte Esterase Negative (Negative) Urine RBC 0-2 (0-2) /HPF Urine WBC 0-5 (0-5) /HPF Ur Squamous Epith Cells 0-2 (0-2) /HPF Urine Bacteria None Seen (None Seen) Hyaline Casts 0-2 (0-2) /LPF 01/04/23 Range/Units 09:57 WBC (4.8-10.8) X10*3/uL RBC (4.60-5.80) X10*6/uL Hgb (14.0-18.0) g/dl Hct (42.0-52.0) % MCV (80.0-98.0) fL MCH (27.0-33.0) pg MCHC (31.0-36.0) g/dl RDW (11.0-16.0) % Plt Count (160-400) X10*3/uL MPV (9.4-12.4) fL Immature Gran % (Auto) (0.0-0.4) % Neut % (Auto) (45-73) % Lymph % (Auto) (20-40) % [place] % (Auto) (2-11) % Eos % (Auto) (0-4) % Baso % (Auto) (0-2) % Lymph # (Auto) (1.2-4.9) X10*3/uL [place] # (Auto) (0.1-1.2) X10*3/uL Eos # (Auto) (0.0-0.4) X10*3/uL Baso # (Auto) (0.0-0.2) X10*3/uL Abs Immat Gran (auto) (0.00-0.03) X10*3/uL Absolute Neuts (auto) (2.0-8.3) x10*3/uL Absolute Nucleated RBC (0.0-0.012) X10*3/uL Nucleated RBC % (auto) (0.0-0.2) /100WBC Sodium (135-145) mmol/L Potassium (3.3-5.1) mmol/L Chloride (96-108) mmol/L Carbon Dioxide (22-29) mmol/L Anion Gap (12-20) BUN (9-16) mg/dL Creatinine (0.5-1.4) mg/dL Estim Creat Clear Calc Estimated GFR Random Glucose (60-115) mg/dL Lactic Acid 1.2 (0.5-2.0) mmol/L Calcium (8.4-10.2) mg/dL Total Bilirubin (0.0-1.0) mg/dL AST (5-37) U/L ALT (0-40) U/L Alkaline Phosphatase (39-117) U/L Total Protein (6.5-8.0) g/dL Albumin (3.5-5.0) g/dL Urine Color Urine Appearance Urine pH (5.0-9.0) Ur Specific [place] (1.005-1.025) Urine Protein (Neg-Trace) mg/dL Urine Glucose (UA) (Negative) mg/dL Urine Ketones (Negative) mg/dL Urine Blood (Negative) Urine Nitrite (Negative) Ur Leukocyte Esterase (Negative) Urine RBC (0-2) /HPF Urine WBC (0-5) /HPF Ur Squamous Epith Cells (0-2) /HPF Urine Bacteria (None Seen) Hyaline Casts (0-2) /LPF Radiology Impression Radiologist Impression: My interpretation is in agreement with radiology's impression. External Record Review External record reviewed: Prior outpatient labs Medications Administered Discontinued Medications Generic Name Dose Route Start Last Admin Trade Name Freq PRN Reason Stop Dose Admin Atenolol 100 mg 01/04/23 09:15 01/04/23 10:10 Atenolol 100 Mg Tablet PO 01/04/23 09:16 100 mg ONCE ONE Administration Protocol Fentanyl 25 mcg 01/04/23 09:18 01/04/23 10:14 Fentanyl Citrate/Pf 100 Mcg/2 Ml Vial IVPUSH 01/04/23 09:19 25 mcg ONCE ONE Administration Protocol Sodium Chloride 1,000 mls @ 999 mls/hr 01/04/23 09:15 01/04/23 11:35 Ns IV 01/04/23 10:15 Infused .Q1H1M BROWN Infusion Piperacillin Sod/Tazobactam 50 mls @ 100 mls/hr 01/04/23 09:14 01/04/23 10:48 Sod 3.375 gm/ Sodium Chloride IV 01/04/23 09:43 Infused ONCE ONE Infusion Losartan Potassium 100 mg 01/04/23 09:15 01/04/23 10:10 Losartan Potassium 50 Mg Tablet PO 01/04/23 09:16 100 mg ONCE ONE Administration Protocol Discharge Plan Discharge Clinical Impression: Diverticulitis, Diabetes, Hypertension Patient Disposition: Admitted As Inpatient Prescriptions: No Action prednisone 20 mg tablet 20 mg PO DAILY 4 Days Qty: 4 0RF amoxicillin-pot clavulanate [Augmentin] 875-125 mg tablet 1 tab PO BID Qty: 14 0RF
[2023-01-04] MEDS: atenoloL 100 MG TABLET PO (10:10)
[2023-01-04] MEDS: Losartan Potassium 50 MG TABLET 100 MG PO (10:10)
[2023-01-04] MEDS: Piperacillin Sodium/Tazobactam 3.375 GM in 0.9 % Sodium Chloride 50 ML IV ×3 (10:14→22:35)
[2023-01-04] MEDS: 0.9 % Sodium Chloride 1,000 ML 999 ML IV (10:14)
[2023-01-04] MEDS: fentaNYL citrate/PF 100 MCG/2 ML VIAL 25 MCG IVPUSH (10:14)
[2023-01-04 10:16] LABS: Lactic Acid 1.2 mmol/L (0.5-2.0)
--- NOTE | 2023-01-04 10:28 | PC.NURSE ---
iv established, medicated per the mar.
[2023-01-04 10:40] LABS: Appearance Urine Clear; Color Urine Yellow; Glucose Urine UA Negative (Negative); Leukocyte Esterase Urine Negative (Negative); Nitrite Urine Negative (Negative); Specific Gravity - Urine 1.015 (1.005-1.025); UMIC TRIGGER UACC YES; Urine Blood Negative (Negative); Urine Ketones 15 mg/dL (Negative); Urine Protein 100 (2+) mg/dL (Neg-Trace)
[2023-01-04 10:46] LABS: Bacteria Urine None Seen (None Seen); Hyaline Casts Urine 0-2 /LPF (0-2); RBC Urine 0-2 /HPF (0-2); Squamous Epithelial Cell Urine 0-2 /HPF (0-2); WBC Urine 0-5 /HPF (0-5)
--- NOTE | 2023-01-04 12:07 | PM.CNGS ---
History of Present Illness Consult details Consult date: 01/04/23 Narrative: 72-year-old male here in the ER for abdominal pain. He says that he has had this left-sided abdominal pain for about 3-4 days. He says that this radiates all the way to the lower back. He denies any diarrhea or constipation. He describes good bowel movements. He says that he had been diagnosed to have diverticulitis in the past but was not admitted to the hospital. He denies any fever or chills. He denies any urinary complaints. Review of Systems Constitutional: Constitutional: Denies chills and Denies fever(s) Cardiovascular: Cardiovascular: Denies chest pain, Denies dyspnea and Denies dyspnea on exertion Respiratory: Respiratory: Denies cough, Denies dyspnea and Denies dyspnea on exertion Gastrointestinal: Gastrointestinal: Denies hematochezia and Denies change in bowel habits Genitourinary: Genitourinary: Denies hematuria and Denies difficulty urinating Musculoskeletal: Musculoskeletal: Denies back pain and Denies limited range of motion Neurologic: Denies focal weakness and Denies convulsions Psychiatric: Psychiatric: Denies depression and Denies mood swings [facility] Past Medical History Medical History Diabetes mellitus, type 2 Hypercholesteremia Hypertension Social History Social History Household Members: None Housing: Apartment Do you presently have visiting nurse or other home services: No Patient Tobacco Use Status: Former Tobacco user Tobacco use type: Cigarette e-Cigarette/Vaping Use: Never Used Advance Directives: No Advance Directives Information Provided: Yes service: No Current occupational status: retired [employer] Allergies Allergy/AdvReac Type Severity Reaction Status Date / Time No Known Allergies Allergy Verified 09/03/20 11:30 Active Medications: Current Medications Pharmacy Consult (Consult Rx Perform Med Rec) 1 each MISCELLANE ONCE PRN PRN Reason: Consult order Home Medications Medication Instructions Recorded Confirmed Last Taken Type acetaminophen 500 mg tablet 500 mg PO Q6H PRN Fever Or Pain 01/04/23 01/04/23 Unknown History aspirin 81 mg tablet,delayed 81 mg PO DAILY 01/04/23 01/04/23 Unknown History release atenolol 100 mg tablet 100 mg PO DAILY 01/04/23 01/04/23 Unknown History losartan 100 mg tablet 100 mg PO DAILY 01/04/23 01/04/23 Unknown History metformin 500 mg tablet,extended 1,000 mg PO DAILY 01/04/23 01/04/23 Unknown History release 24 hr simvastatin 20 mg tablet 20 mg PO BEDTIME 01/04/23 01/04/23 Unknown History Physical Exam Vital Signs: Vital Signs: Last Vital Signs Temp 98.5 F 01/04/23 11:35 Pulse 75 01/04/23 11:35 Resp 16 01/04/23 11:35 BP 188/95 H 01/04/23 11:35 Pulse Ox 98 01/04/23 11:35 O2 Del Method Room Air 01/04/23 11:35 BMI result Body Mass Index 34.7 Const: Other: Looks well General: comfortable and no acute distress Orientation/consciousness: patient oriented x3 Neck: Neck: Yes no lymphadenopathy Resp: Auscultation: clear to auscultation bilaterally Cardio: Rhythm: regular rhythm GI: Other: mild tenderness on the left flank, left lower quadrant Palpation (GI): Soft to palpation, Tenderness to palpation present (GI) and no guarding Neuro: General: patient oriented x3 Results Labs 01/04/23 08:03 01/04/23 08:03 Labs: Abnormal lab results 01/04/23 01/04/23 01/04/23 Range/Units 08:03 08:03 09:47 WBC 12.5 H (4.8-10.8) X10*3/uL RBC 4.10 L (4.60-5.80) X10*6/uL Hgb 13.2 L (14.0-18.0) g/dl Hct 38.6 L (42.0-52.0) % Neut % (Auto) 75.5 H (45-73) % Lymph % (Auto) 15.3 L (20-40) % Absolute Neuts (auto) 9.4 H (2.0-8.3) x10*3/uL Carbon Dioxide 21 L (22-29) mmol/L Random Glucose 155 H (60-115) mg/dL Urine Protein 100 (2+) H (Neg-Trace) mg/dL Short CBC 01/04/23 Range/Units 08:03 WBC 12.5 H (4.8-10.8) X10*3/uL Hgb 13.2 L (14.0-18.0) g/dl Hct 38.6 L (42.0-52.0) % Plt Count 191 (160-400) X10*3/uL BMP 01/04/23 08:03 Sodium 138 Potassium 3.9 Chloride 105 Carbon Dioxide 21 L BUN 15 Creatinine 1.07 Calcium 9.1 D Liver Function 01/04/23 Range/Units 08:03 Total Bilirubin 0.9 (0.0-1.0) mg/dL AST 17 (5-37) U/L ALT 23 (0-40) U/L Alkaline Phosphatase 68 (39-117) U/L Albumin 4.0 (3.5-5.0) g/dL Urine 01/04/23 Range/Units 09:47 Urine Color Yellow Urine Appearance Clear Urine pH 6.0 (5.0-9.0) Ur Specific [place] 1.015 (1.005-1.025) Urine Protein 100 (2+) H (Neg-Trace) mg/dL Urine Glucose (UA) Negative (Negative) mg/dL All other labs normal. Laboratory Results WBC 12.5 X10*3/uL (4.8-10.8) H 01/04/23 08:03 RBC 4.10 X10*6/uL (4.60-5.80) L 01/04/23 08:03 Hgb 13.2 g/dl (14.0-18.0) L 01/04/23 08:03 Hct 38.6 % (42.0-52.0) L 01/04/23 08:03 MCV 94.1 fL (80.0-98.0) 01/04/23 08:03 MCH 32.2 pg (27.0-33.0) 01/04/23 08:03 MCHC 34.2 g/dl (31.0-36.0) 01/04/23 08:03 RDW 12.4 % (11.0-16.0) 01/04/23 08:03 Plt Count 191 X10*3/uL (160-400) 01/04/23 08:03 MPV 9.9 fL (9.4-12.4) 01/04/23 08:03 Immature Gran % (Auto) 0.2 % (0.0-0.4) 01/04/23 08:03 Neut % (Auto) 75.5 % (45-73) H 01/04/23 08:03 Lymph % (Auto) 15.3 % (20-40) L 01/04/23 08:03 [place] % (Auto) 8.1 % (2-11) 01/04/23 08:03 Eos % (Auto) 0.7 % (0-4) 01/04/23 08:03 Baso % (Auto) 0.2 % (0-2) 01/04/23 08:03 Lymph # (Auto) 1.9 X10*3/uL (1.2-4.9) 01/04/23 08:03 [place] # (Auto) 1.0 X10*3/uL (0.1-1.2) 01/04/23 08:03 Eos # (Auto) 0.1 X10*3/uL (0.0-0.4) 01/04/23 08:03 Baso # (Auto) 0.0 X10*3/uL (0.0-0.2) 01/04/23 08:03 Abs Immat Gran (auto) 0.03 X10*3/uL (0.00-0.03) 01/04/23 08:03 Absolute Neuts (auto) 9.4 x10*3/uL (2.0-8.3) H 01/04/23 08:03 Absolute Nucleated RBC 0.000 X10*3/uL (0.0-0.012) 01/04/23 08:03 Nucleated RBC % (auto) 0.0 /100WBC (0.0-0.2) 01/04/23 08:03 Sodium 138 mmol/L (135-145) 01/04/23 08:03 Potassium 3.9 mmol/L (3.3-5.1) 01/04/23 08:03 Chloride 105 mmol/L (96-108) 01/04/23 08:03 Carbon Dioxide 21 mmol/L (22-29) L 01/04/23 08:03 Anion Gap 16 (12-20) 01/04/23 08:03 BUN 15 mg/dL (9-16) 01/04/23 08:03 Creatinine 1.07 mg/dL (0.5-1.4) 01/04/23 08:03 Estim Creat Clear Calc 61.5 01/04/23 08:03 Estimated GFR > 60 01/04/23 08:03 Random Glucose 155 mg/dL (60-115) H 01/04/23 08:03 Lactic Acid 1.2 mmol/L (0.5-2.0) 01/04/23 09:57 Calcium 9.1 mg/dL (8.4-10.2) D 01/04/23 08:03 Total Bilirubin 0.9 mg/dL (0.0-1.0) 01/04/23 08:03 AST 17 U/L (5-37) 01/04/23 08:03 ALT 23 U/L (0-40) 01/04/23 08:03 Alkaline Phosphatase 68 U/L (39-117) 01/04/23 08:03 Total Protein 7.8 g/dL (6.5-8.0) 01/04/23 08:03 Albumin 4.0 g/dL (3.5-5.0) 01/04/23 08:03 Urine Color Yellow 01/04/23 09:47 Urine Appearance Clear 01/04/23 09:47 Urine pH 6.0 (5.0-9.0) 01/04/23 09:47 Ur Specific [place] 1.015 (1.005-1.025) 01/04/23 09:47 Urine Protein 100 (2+) mg/dL (Neg-Trace) H 01/04/23 09:47 Urine Glucose (UA) Negative mg/dL (Negative) 01/04/23 09:47 Urine Ketones 15 mg/dL (Negative) 01/04/23 09:47 Urine Blood Negative (Negative) 01/04/23 09:47 Urine Nitrite Negative (Negative) 01/04/23 09:47 Ur Leukocyte Esterase Negative (Negative) 01/04/23 09:47 Urine RBC 0-2 /HPF (0-2) 01/04/23 09:47 Urine WBC 0-5 /HPF (0-5) 01/04/23 09:47 Ur Squamous Epith Cells 0-2 /HPF (0-2) 01/04/23 09:47 Urine Bacteria None Seen (None Seen) 01/04/23 09:47 Hyaline Casts 0-2 /LPF (0-2) 01/04/23 09:47 Impressions Abdomen/Pelvis CT 01/04/23 10:16 IMPRESSION: Diverticulitis of the distal left and proximal sigmoid colon. There is extensive stranding of the fat tracking along the left inferior anterior pararenal fascia. Developing abscess should be considered. No evidence of perforation or obstruction. Fatty liver. Small left renal stone. Fleischner guidelines were followed. Assessment and Plan (1) Diverticulitis: Status: Acute He has had had abdominal pain for about 3-4 days. He describes this as [id number]. I have reviewed his CAT scan images, and this shows some inflammatory changes in the distal left colon and sigmoid, as well as on the left perianal space. This consistent with acute diverticulitis There is no drainable abscess. I would recommend admitting him for IV antibiotics. He will be on clear liquids for now. His exam is otherwise benign. He appears to be up-to-date with his colonoscopies. Review of his records show that he was in the ER in 2019 for mild diverticulitis of the sigmoid. As per the ER physician, the patient is being admitted to medical service. I will follow along while he is in the hospital. Time Spent With Patient Time: Total time managing care of this patient today ____ minutes. Procedures Date of Service Date of Service: 01/12/23
--- NOTE | 2023-01-04 13:38 | PM.IMHP ---
History of Present Illness Date of Service: 01/04/23 <Estefany Auguste NP - Last Filed: 01/04/23 14:11> Chief Complaint: Abdominal pain <Estefany Auguste NP - Last Filed: 01/04/23 14:11> 72 year old man presenting to the ED with c/o abdominal pain over the last 2 days. He describes sharp LLQ pain that radiates to his left Lower back area with no nausea, vomiting, diarrhea or fever. He has a history of diverticulitis in the past. Abd CT showing diverticulitis of the distal left and proximal sigmoid colon with fat stramding along the left inferior anterior pararenal fascia. No fever noted. BP mildly elevated. Labs all within acceptable limits. He was given a dose of zosyn and will be placed on observation for acute diverticular pain. <Estefany Auguste NP - Last Filed: 01/04/23 14:11> Review of Systems Review of Systems: Denies any recent fever chills or decrease in appetite respiratory denies any shortness of breath coverage production cardiovascular denied chest pain gastrointestinal LLQ abd pain genitourinary denies any dysuria frequency or hematuria musculoskeletal denies any joint pain or swelling neuropsych denies any weakness or seizures all other systems reviewed are negative <Estefany Auguste NP - Last Filed: 01/04/23 14:11> [facility] Medical History: Medical History Diabetes mellitus, type 2 Hypercholesteremia Hypertension <Estefany Auguste NP - Last Filed: 01/04/23 14:11> Social History: Social History Smoked in Last 30 Days: No Advance Directives: No <Estefany Auguste NP - Last Filed: 01/04/23 14:11> Meds Allergies/Adverse reactions: Allergies Allergy/AdvReac Type Severity Reaction Status Date / Time No Known Allergies Allergy Verified 09/03/20 11:30 <Estefany Auguste NP - Last Filed: 01/04/23 14:11> Active Medications: Current Medications Acetaminophen (Acetaminophen 325 Mg Tablet) 650 mg PO Q6H PRN PRN Reason: Pain, Mild (Pain Scale 1-3) Enoxaparin Sodium (Enoxaparin Sodium 40 Mg/0.4 Ml Syringe) 40 mg SUBCUT Q24H BROWN Ondansetron HCl (Ondansetron Hcl 4 Mg/2 Ml Vial) 4 mg IVPUSH Q8H PRN PRN Reason: Nausea and Vomiting Pharmacy Consult (Consult Rx Perform Med Rec) 1 each MISCELLANE ONCE PRN PRN Reason: Consult order Sodium Chloride (0.9 % Sodium Chloride Flush 3 Ml Syringe) 3 ml IVFLUSH QSHIFT BROWN <Estefany Auguste NP - Last Filed: 01/04/23 14:11> Home medications: Home Medications Medication Instructions Recorded Confirmed Last Taken Type acetaminophen 500 mg tablet 500 mg PO Q6H PRN Fever Or Pain 01/04/23 01/04/23 Unknown History aspirin 81 mg tablet,delayed 81 mg PO DAILY 01/04/23 01/04/23 Unknown History release atenolol 100 mg tablet 100 mg PO DAILY 01/04/23 01/04/23 Unknown History losartan 100 mg tablet 100 mg PO DAILY 01/04/23 01/04/23 Unknown History metformin 500 mg tablet,extended 1,000 mg PO DAILY 01/04/23 01/04/23 Unknown History release 24 hr simvastatin 20 mg tablet 20 mg PO BEDTIME 01/04/23 01/04/23 Unknown History <Estefany Auguste NP - Last Filed: 01/04/23 14:11> Physical Exam Vital Signs and Narrative: Vital Signs: Last Vital Signs Temp 98.5 F 01/04/23 11:35 Pulse 75 01/04/23 11:35 Resp 16 01/04/23 11:35 BP 188/95 H 01/04/23 11:35 Pulse Ox 98 01/04/23 11:35 O2 Del Method Room Air 01/04/23 11:35 BMI result Body Mass Index 34.7 <Estefany Auguste NP - Last Filed: 01/04/23 14:11> Appearing in no acute distress head is normocephalic atraumatic eyes pupils are PERRLA sclera is anicteric mouth throat mucous membranes are intact and moist neck is supple no lymphadenopathy, no JVD noted lung sounds are clear to auscultation heart regular rate rhythm, clear S1, S2 positive bowel sounds, abdomen is soft, nontender neuro patient is alert x3, no focal deficits <Estefany Auguste NP - Last Filed: 01/04/23 14:11> Results Labs CBC and Chem 7: 01/04/23 08:03 01/04/23 08:03 <Estefany Auguste STENCILING MACHINE TENDER - Last Filed: 01/04/23 14:11> Labs: Laboratory Results - last 24 hr 01/04/23 01/04/23 01/04/23 08:03 08:03 09:47 MCV 94.1 MCH 32.2 MCHC 34.2 RDW 12.4 Plt Count 191 MPV 9.9 Immature Gran % (Auto) 0.2 Neut % (Auto) 75.5 H Lymph % (Auto) 15.3 L [place] % (Auto) 8.1 Eos % (Auto) 0.7 Baso % (Auto) 0.2 Lymph # (Auto) 1.9 [place] # (Auto) 1.0 Eos # (Auto) 0.1 Baso # (Auto) 0.0 Abs Immat Gran (auto) 0.03 Absolute Neuts (auto) 9.4 H Absolute Nucleated RBC 0.000 Nucleated RBC % (auto) 0.0 Anion Gap 16 Estim Creat Clear Calc 61.5 Estimated GFR > 60 Random Glucose 155 H Lactic Acid Calcium 9.1 D Total Bilirubin 0.9 AST 17 ALT 23 Alkaline Phosphatase 68 Total Protein 7.8 Albumin 4.0 Urine Color Yellow Urine Appearance Clear Urine pH 6.0 Ur Specific [place] 1.015 Urine Protein 100 (2+) H Urine Glucose (UA) Negative Urine Ketones 15 Urine Blood Negative Urine Nitrite Negative Ur Leukocyte Esterase Negative Urine RBC 0-2 Urine WBC 0-5 Ur Squamous Epith Cells 0-2 Urine Bacteria None Seen Hyaline Casts 0-2 01/04/23 09:57 MCV MCH MCHC RDW Plt Count MPV Immature Gran % (Auto) Neut % (Auto) Lymph % (Auto) [place] % (Auto) Eos % (Auto) Baso % (Auto) Lymph # (Auto) [place] # (Auto) Eos # (Auto) Baso # (Auto) Abs Immat Gran (auto) Absolute Neuts (auto) Absolute Nucleated RBC Nucleated RBC % (auto) Anion Gap Estim Creat Clear Calc Estimated GFR Random Glucose Lactic Acid 1.2 Calcium Total Bilirubin AST ALT Alkaline Phosphatase Total Protein Albumin Urine Color Urine Appearance Urine pH Ur Specific [place] Urine Protein Urine Glucose (UA) Urine Ketones Urine Blood Urine Nitrite Ur Leukocyte Esterase Urine RBC Urine WBC Ur Squamous Epith Cells Urine Bacteria Hyaline Casts <Estefany Auguste NP - Last Filed: 01/04/23 14:11> Imaging Radiologist's Impressions: Impressions Abdomen/Pelvis CT 01/04/23 10:16 IMPRESSION: Diverticulitis of the distal left and proximal sigmoid colon. There is extensive stranding of the fat tracking along the left inferior anterior pararenal fascia. Developing abscess should be considered. No evidence of perforation or obstruction. Fatty liver. Small left renal stone. Fleischner guidelines were followed. <Estefany Auugste NP - Last Filed: 01/04/23 14:11> Assessment and Plan (1) Diverticulitis: Status: Acute <Estefany Auguste NP - Last Filed: 01/04/23 14:11> 72 year old man admitted with acute diverticulitis Diverticulitis, acute start Zosyn pain management clear liquid diet for now advance as tolerated HTN continue home medications DM2 sliding scale HLD asa, hld DVT prophylaxis with Lovenox full code obs <Estefany Auguste NP - Last Filed: 01/04/23 14:11> Time Spent With Patient Time: Total time managing care of this patient today ____ minutes. <Estefany Auguste NP - Last Filed: 01/04/23 14:11> Quality Stroke Does the patient have a stroke diagnosis?: No <Gaurav Enrique MD - Last Filed: 01/04/23 14:58> VTE Prior VTE?: No <Gaurav Enrique MD - Last Filed: 01/04/23 14:58> VTE Risk Level:: Medical - moderate - high <Estefany Auguste NP - Last Filed: 01/04/23 14:11> VTE Device Contraindication: Treatment Not Indicated <Estefany Auguste NP - Last Filed: 01/04/23 14:11> VTE Drug Contraindication: N/A - Med Ordered <Estefany Auguste NP - Last Filed: 01/04/23 14:11>
--- NOTE | 2023-01-04 13:54 | PHA.MEDREC ---
Pharmacy Consult ? Medication Reconciliation Pharmacy has completed the medication reconciliation. spoke with patient. He confirmed all of his medications.
[2023-01-04] MEDS: Enoxaparin Sodium 40 MG/0.4 ML SYRINGE SUBCUT (15:29)
[2023-01-04 16:48] LABS: Glucose, Whole Blood 133 mg/dL (60-115)
[2023-01-04] MEDS: 0.9 % Sodium Chloride Flush 3 ML SYRINGE IVFLUSH ×2 (16:52→22:36)
[2023-01-04 20:38] LABS: Glucose, Whole Blood 173 mg/dL (60-115)
[2023-01-05 03:25] VITALS: BP 140/77; PULSE 81; RESP 18; TEMP 37.1; O2SAT 95
[2023-01-05] MEDS: Piperacillin Sodium/Tazobactam 3.375 GM in 0.9 % Sodium Chloride 50 ML IV (04:27)
[2023-01-05 05:41] LABS: MANUAL DIFF FLAG NO
[2023-01-05 05:50] LABS: Basophils Percent Auto 0.3 % (0-2); Eosinophils Absolute Auto 0.1 X10*3/uL (0.0-0.4); Eosinophils Percent Auto 1.2 % (0-4); Hematocrit 36.2 % (42.0-52.0); Hemoglobin 12.2 g/dl (14.0-18.0); Imm Gran Abs Auto 0.05 X10*3/uL (0.00-0.03); Imm Gran Pct Auto 0.4 % (0.0-0.4); Lymphocytes Absolute Auto 2.3 X10*3/uL (1.2-4.9); Mean Corpuscular HGB Conc 33.7 g/dl (31.0-36.0); Mean Corpuscular Hemoglobin 32.4 pg (27.0-33.0); Mean Corpuscular Volume 96.3 fL (80.0-98.0); Mean Platelet Volume 10.2 fL (9.4-12.4); Monocytes Absolute Auto 1.1 X10*3/uL (0.1-1.2); Monocytes Percent Auto 9.6 % (2-11); Neutrophils Absolute Auto 7.7 x10*3/uL (2.0-8.3); Neutrophils Percent Auto 68.5 % (45-73); Platelet Count 175 X10*3/uL (160-400); Red Blood Count 3.76 X10*6/uL (4.60-5.80); Red Cell Distribution Width 12.5 % (11.0-16.0); White Blood Count 11.3 X10*3/uL (4.8-10.8)
[2023-01-05 06:02] LABS: Anion Gap 16 (12-20); Blood Urea Nitrogen 13 mg/dL (9-16); Calcium 8.9 mg/dL (8.4-10.2); Carbon Dioxide 22 mmol/L (22-29); Chloride 105 mmol/L (96-108); Creatinine Clr Calc Pharmacy 61.5; Estimated Glomerular Filt Rate > 60; Glucose Random 106 mg/dL (60-115); Potassium 3.7 mmol/L (3.3-5.1); Sodium 139 mmol/L (135-145)
[2023-01-05 07:05] VITALS: BP 147/82; PULSE 77; RESP 18; TEMP 36.6; O2SAT 95
--- NOTE | 2023-01-05 07:50 | PM.PNGS ---
Subjective Subjective Date of Service: 01/05/23 Interval history: feels much better very minimal LLQ pain tolerating diet Physical Exam Vital Signs: Vital Signs: Last Vital Signs Temp 97.8 F 01/05/23 07:05 Pulse 77 01/05/23 07:05 Resp 18 01/05/23 07:05 BP 147/82 H 01/05/23 07:05 Pulse Ox 95 01/05/23 07:05 O2 Del Method Room Air 01/05/23 07:05 BMI result Body Mass Index 34.7 Const: General: comfortable and no acute distress Resp: Effort & Inspection: normal respiratory effort Cardio: Rate: regular rate GI: Other: soft, nondistended, nontender, no guarding or rebound Objective Data Active Medications Acetaminophen (Acetaminophen 325 Mg Tablet) 650 mg PO Q6H PRN PRN Reason: Pain, Mild (Pain Scale 1-3) Enoxaparin Sodium (Enoxaparin Sodium 40 Mg/0.4 Ml Syringe) 40 mg SUBCUT Q24H [facility] Last Admin: 01/04/23 15:29 Dose: 40 mg Documented By: PENNY Piperacillin Sod/Tazobactam (Sod 3.375 gm/ Sodium Chloride) 50 mls @ 100 mls/hr IV Q6H [facility] Last Infusion: 01/05/23 05:00 Dose: 0 mls/hr Documented By: KARLOS Morphine Sulfate (Morphine Sulfate 2 Mg/Ml Cartridge) 2 mg IVPUSH Q6H PRN; Protocol PRN Reason: Pain, Mild (Pain Scale 1-3) Ondansetron HCl (Ondansetron Hcl 4 Mg/2 Ml Vial) 4 mg IVPUSH Q8H PRN PRN Reason: Nausea and Vomiting Pharmacy Consult (Consult Rx Perform Med Rec) 1 each MISCELLANE ONCE PRN PRN Reason: Consult order Sodium Chloride (0.9 % Sodium Chloride Flush 3 Ml Syringe) 3 ml IVFLUSH QSHIFT [facility] Last Admin: 01/04/23 22:36 Dose: 3 ml Documented By: KARLOS Labs 01/05/23 05:25 01/05/23 05:25 Labs: Laboratory Results - last 24 hr 01/04/23 01/04/23 01/04/23 08:03 08:03 09:47 MCV 94.1 MCH 32.2 MCHC 34.2 RDW 12.4 Plt Count 191 MPV 9.9 Immature Gran % (Auto) 0.2 Neut % (Auto) 75.5 H Lymph % (Auto) 15.3 L Wheeler % (Auto) 8.1 Eos % (Auto) 0.7 Baso % (Auto) 0.2 Lymph # (Auto) 1.9 Wheeler # (Auto) 1.0 Eos # (Auto) 0.1 Baso # (Auto) 0.0 Abs Immat Gran (auto) 0.03 Absolute Neuts (auto) 9.4 H Absolute Nucleated RBC 0.000 Nucleated RBC % (auto) 0.0 Anion Gap 16 Estim Creat Clear Calc 61.5 Estimated GFR > 60 POC Glucose Random Glucose 155 H Lactic Acid Calcium 9.1 D Total Bilirubin 0.9 AST 17 ALT 23 Alkaline Phosphatase 68 Total Protein 7.8 Albumin 4.0 Urine Color Yellow Urine Appearance Clear Urine pH 6.0 Ur Specific [place] 1.015 Urine Protein 100 (2+) H Urine Glucose (UA) Negative Urine Ketones 15 Urine Blood Negative Urine Nitrite Negative Ur Leukocyte Esterase Negative Urine RBC 0-2 Urine WBC 0-5 Ur Squamous Epith Cells 0-2 Urine Bacteria None Seen Hyaline Casts 0-2 01/04/23 01/04/23 01/04/23 09:57 16:44 19:28 MCV MCH MCHC RDW Plt Count MPV Immature Gran % (Auto) Neut % (Auto) Lymph % (Auto) Wheeler % (Auto) Eos % (Auto) Baso % (Auto) Lymph # (Auto) Wheeler # (Auto) Eos # (Auto) Baso # (Auto) Abs Immat Gran (auto) Absolute Neuts (auto) Absolute Nucleated RBC Nucleated RBC % (auto) Anion Gap Estim Creat Clear Calc Estimated GFR POC Glucose 133 H 173 H Random Glucose Lactic Acid 1.2 Calcium Total Bilirubin AST ALT Alkaline Phosphatase Total Protein Albumin Urine Color Urine Appearance Urine pH Ur Specific [place] Urine Protein Urine Glucose (UA) Urine Ketones Urine Blood Urine Nitrite Ur Leukocyte Esterase Urine RBC Urine WBC Ur Squamous Epith Cells Urine Bacteria Hyaline Casts 01/05/23 01/05/23 05:25 05:25 MCV 96.3 MCH 32.4 MCHC 33.7 RDW 12.5 Plt Count 175 MPV 10.2 Immature Gran % (Auto) 0.4 Neut % (Auto) 68.5 Lymph % (Auto) 20.0 Wheeler % (Auto) 9.6 Eos % (Auto) 1.2 Baso % (Auto) 0.3 Lymph # (Auto) 2.3 Wheeler # (Auto) 1.1 Eos # (Auto) 0.1 Baso # (Auto) 0.0 Abs Immat Gran (auto) 0.05 H Absolute Neuts (auto) 7.7 Absolute Nucleated RBC 0.000 Nucleated RBC % (auto) 0.0 Anion Gap 16 Estim Creat Clear Calc 61.5 Estimated GFR > 60 POC Glucose Random Glucose 106 Lactic Acid Calcium 8.9 Total Bilirubin AST ALT Alkaline Phosphatase Total Protein Albumin Urine Color Urine Appearance Urine pH Ur Specific [place] Urine Protein Urine Glucose (UA) Urine Ketones Urine Blood Urine Nitrite Ur Leukocyte Esterase Urine RBC Urine WBC Ur Squamous Epith Cells Urine Bacteria Hyaline Casts Procedures Date of Service Date of Service: 01/05/23 Progress Note: A&P Assessment and plan (1) Diverticulitis: Status: Acute Assessment and Plan: much improved abd soft, nontender no fever clinically looks well seems to be ready to be discharged later today PO abx Time Spent With Patient Time: Total time managing care of this patient today ____ minutes. Quality Stroke Does the patient have a stroke diagnosis?: No VTE Prior VTE?: No VTE Risk Level:: Medical - moderate - high VTE Device Contraindication: Treatment Not Indicated VTE Drug Contraindication: N/A - Med Ordered
--- NOTE | 2023-01-05 08:01 | P.DS_ITS ---
DS: Providers Provider Date of Service: 01/05/23 Date of admission: 01/04/23 13:23 Primary care physician: Jr Perez MD Consults: 01/04/23 11:42 Consult to General Surgery Stat Consulting Provider: [facility] General Surgeons Reason for consultation: Diverticulitis Has provider been notified: Yes DS: Diagnosis Discharge Diagnosis (1) Diverticulitis: Status: Acute DS: Summary Hospital Course Hospital Course: 72 year old man presenting to the ED with c/o abdominal pain over the last 2 days. He describes sharp LLQ pain that radiates to his left Lower back area with no nausea, vomiting, diarrhea or fever. He has a history of diverticulitis in the past. Abd CT showing diverticulitis of the distal left and proximal sigmoid colon with fat stramding along the left inferior anterior pararenal fascia. No fever noted. BP mildly elevated. Labs all within acceptable limits. He was given a dose of zosyn and will be placed on observation for acute diverticular pain.?? Acute diverticulitis with no abscess or perforation. Patient was able to take a regular diet without any issues. He denies any further pain. No fever, nausea, vomiting noted. Treated with IV Zosyn. Will go home with 6 more days of antibiotics, Ceftin and Flagyl. He can follow-up with his primary care provider as needed Chronic medical problems: Hypertension Diabetes mellitus Hyperlipidemia Time Spent with Patient Time attestation: Total time managing care of this patient today ____ minutes. Discharge coordination time: Greater than 30 minutes Quality: Safe Use of Opioids Does Pt have an Active Cancer Diagnosis on the Problem List?: No Quality: Stroke Does the patient have a stroke diagnosis?: No Physical Exam Vital Signs: Vital Signs: Last Vital Signs Temp 97.8 F 01/05/23 07:05 Pulse 77 01/05/23 07:05 Resp 18 01/05/23 07:05 BP 147/82 H 01/05/23 07:05 Pulse Ox 95 01/05/23 07:05 O2 Del Method Room Air 01/05/23 07:05 BMI result Body Mass Index 34.7 Appearing in no acute distress head is normocephalic atraumatic eyes pupils are PERRLA sclera is anicteric mouth throat mucous membranes are intact and moist neck is supple no lymphadenopathy, no JVD noted lung sounds are clear to auscultation heart regular rate rhythm, clear S1, S2 positive bowel sounds, abdomen is soft, nontender neuro patient is alert x3, no focal deficits DS: Data Data Completed and Pending Labs on day of discharge: Laboratory Results - last 24 hr 01/04/23 01/04/23 01/04/23 08:03 08:03 09:47 WBC 12.5 H RBC 4.10 L Hgb 13.2 L Hct 38.6 L MCV 94.1 MCH 32.2 MCHC 34.2 RDW 12.4 Plt Count 191 MPV 9.9 Immature Gran % (Auto) 0.2 Neut % (Auto) 75.5 H Lymph % (Auto) 15.3 L [place] % (Auto) 8.1 Eos % (Auto) 0.7 Baso % (Auto) 0.2 Lymph # (Auto) 1.9 [place] # (Auto) 1.0 Eos # (Auto) 0.1 Baso # (Auto) 0.0 Abs Immat Gran (auto) 0.03 Absolute Neuts (auto) 9.4 H Absolute Nucleated RBC 0.000 Nucleated RBC % (auto) 0.0 Sodium 138 Potassium 3.9 Chloride 105 Carbon Dioxide 21 L Anion Gap 16 BUN 15 Creatinine 1.07 Estim Creat Clear Calc 61.5 Estimated GFR > 60 POC Glucose Random Glucose 155 H Lactic Acid Calcium 9.1 D Total Bilirubin 0.9 AST 17 ALT 23 Alkaline Phosphatase 68 Total Protein 7.8 Albumin 4.0 Urine Color Yellow Urine Appearance Clear Urine pH 6.0 Ur Specific [place] 1.015 Urine Protein 100 (2+) H Urine Glucose (UA) Negative Urine Ketones 15 Urine Blood Negative Urine Nitrite Negative Ur Leukocyte Esterase Negative Urine RBC 0-2 Urine WBC 0-5 Ur Squamous Epith Cells 0-2 Urine Bacteria None Seen Hyaline Casts 0-2 01/04/23 01/04/23 01/04/23 09:57 16:44 19:28 WBC RBC Hgb Hct MCV MCH MCHC RDW Plt Count MPV Immature Gran % (Auto) Neut % (Auto) Lymph % (Auto) [place] % (Auto) Eos % (Auto) Baso % (Auto) Lymph # (Auto) [place] # (Auto) Eos # (Auto) Baso # (Auto) Abs Immat Gran (auto) Absolute Neuts (auto) Absolute Nucleated RBC Nucleated RBC % (auto) Sodium Potassium Chloride Carbon Dioxide Anion Gap BUN Creatinine Estim Creat Clear Calc Estimated GFR POC Glucose 133 H 173 H Random Glucose Lactic Acid 1.2 Calcium Total Bilirubin AST ALT Alkaline Phosphatase Total Protein Albumin Urine Color Urine Appearance Urine pH Ur Specific [place] Urine Protein Urine Glucose (UA) Urine Ketones Urine Blood Urine Nitrite Ur Leukocyte Esterase Urine RBC Urine WBC Ur Squamous Epith Cells Urine Bacteria Hyaline Casts 01/05/23 01/05/23 05:25 05:25 WBC 11.3 H RBC 3.76 L Hgb 12.2 L Hct 36.2 L MCV 96.3 MCH 32.4 MCHC 33.7 RDW 12.5 Plt Count 175 MPV 10.2 Immature Gran % (Auto) 0.4 Neut % (Auto) 68.5 Lymph % (Auto) 20.0 [place] % (Auto) 9.6 Eos % (Auto) 1.2 Baso % (Auto) 0.3 Lymph # (Auto) 2.3 [place] # (Auto) 1.1 Eos # (Auto) 0.1 Baso # (Auto) 0.0 Abs Immat Gran (auto) 0.05 H Absolute Neuts (auto) 7.7 Absolute Nucleated RBC 0.000 Nucleated RBC % (auto) 0.0 Sodium 139 Potassium 3.7 Chloride 105 Carbon Dioxide 22 Anion Gap 16 BUN 13 Creatinine 1.07 Estim Creat Clear Calc 61.5 Estimated GFR > 60 POC Glucose Random Glucose 106 Lactic Acid Calcium 8.9 Total Bilirubin AST ALT Alkaline Phosphatase Total Protein Albumin Urine Color Urine Appearance Urine pH Ur Specific [place] Urine Protein Urine Glucose (UA) Urine Ketones Urine Blood Urine Nitrite Ur Leukocyte Esterase Urine RBC Urine WBC Ur Squamous Epith Cells Urine Bacteria Hyaline Casts Discharge Plan Discharge Anticipated Discharge Date/Time: 01/05/23 07:33 Patient Disposition: Home, Self-Care Discharge Diagnosis: Acute diverticulitis Referrals: Jr Perez MD [Primary Care Provider] - 1 Week Discharge Medications: New cefuroxime axetil 500 mg tablet 500 mg PO BID Qty: 12 0RF metronidazole 500 mg tablet 500 mg PO Q8H Qty: 18 0RF Continued atenolol 100 mg tablet 100 mg PO DAILY aspirin 81 mg tablet,delayed release (DR/EC) 81 mg PO DAILY acetaminophen 500 mg Tablet 500 mg PO Q6H PRN (Reason: Fever Or Pain) simvastatin 20 mg tablet 20 mg PO BEDTIME losartan 100 mg tablet 100 mg PO DAILY metformin 500 mg tablet extended release 24 hr 1,000 mg PO DAILY Discharge Orders: Discharge Order (Routine); Ordered 01/05/23 Ordered By: Estefany Auguste Diet: Advance to usual diet Activity on Discharge: As tolerated Stand Alone Forms: Patient Portal Discharge page Care Plan Goals: Complete resolution of symptoms Health Concerns: Acute diverticulitis Plan of Treatment: Follow-up with primary care provider as needed Take all medications as prescribed Assessment: See discharge summary
--- NOTE | 2023-01-05 08:22 | MHC.CM.PN ---
CM met with Patient at bedside and addressed EVANS with him, providing him with the original and placing a copy on the chart. Patient lives alone in an apartment and he requires no services nor DME. Patient has been medically cleared for dc to home today, self care. CM will arrange shuttle transport for Patient.
== END 2023-01-05 10:09 | disposition home or self-care (01) ==
LOC: HO.ED 11:44 → HO.EDOVER 13:28 → HO.IMC 14:35
PROVIDERS: Admitting Provider Nurse Practitioner Acute Care; Emergency Provider Student in an Organized Health Care Education/Training Program; PCP Internal Medicine; Visit Provider Nurse Practitioner Acute Care
DX: K57.92 Diverticulitis of intestine, part unspecified, without perforation or abscess without bleeding (principal); R10.30 Lower abdominal pain, unspecified; I10 Essential (primary) hypertension; E11.9 Type 2 diabetes mellitus without complications; R10.32 Left lower quadrant pain; E78.5 Hyperlipidemia, unspecified
CPT/HCPCS: 36415; 74176; 80048; 80053; 81001; 81003; 82947; 83605; 85025; 87040; 96361; 96365; 96366; 96372; 96375; 99222; 99285; J1650; J2543; J3010

== ENCOUNTER 2023-01-09 09:29 | Emergency (ER) | payer MEDICARE, SELFPAY ==
[2023-01-09 09:33] VITALS: BP 150/100; PULSE 88; RESP 20; TEMP 36.7; O2SAT 96
[2023-01-09 09:41] VITALS: BMI 29.5
--- NOTE | 2023-01-09 09:45 | ED_ITS ---
HPI - General Adult General Chief complaint: Extremity Problem Stated complaint: swollen painful toe left side Time Seen by Provider: 01/09/23 09:45 Source: patient Mode of arrival: ambulatory Limitations: no limitations History of Present Illness HPI narrative: Patient is a 72 year old assigned male at with a history of HTN, diverticulitis, DM, and gout presenting to the emergency department today with left great toe pain. Patient states that over the last 3 days his left great toe has become more red, swollen, and painful. Patient states that he is unable to tolerate a sheet over top of his left great toe. Patient denies any dizziness, lightheadedness, abdominal pain, nausea, vomiting, fever, chills, blurry vision, double vision, loss of vision, chest pain, difficulty breathing, shortness of breath, back pain, night sweats, pain with urination, increased urinary frequency, increased urinary urgency, blood in his urine or stool, syncope or a near syncopal episode, recent trauma or falls, bowel incontinence, bladder incontinence, bowel retention, bladder retention, or any other complaints at this time. Onset (ago): day(s) (3) Location: left (great toe) Severity: mild Severity scale (1-10): 3 Quality: aching Pain Consistency: constant Relieving factors: none Exacerbating factors: none Associated symptoms: denies other symptoms Treatments prior to arrival: none Related Data Home Medications Medication Instructions Recorded Confirmed acetaminophen 500 mg tablet 500 mg PO Q6H PRN Fever Or Pain 01/04/23 01/04/23 aspirin 81 mg tablet,delayed 81 mg PO DAILY 01/04/23 01/04/23 release atenolol 100 mg tablet 100 mg PO DAILY 01/04/23 01/04/23 losartan 100 mg tablet 100 mg PO DAILY 01/04/23 01/04/23 metformin 500 mg tablet,extended 1,000 mg PO DAILY 01/04/23 01/04/23 release 24 hr simvastatin 20 mg tablet 20 mg PO BEDTIME 01/04/23 01/04/23 Previous Rx's Medication Instructions Recorded cefuroxime axetil 500 mg tablet 500 mg PO BID #12 tabs 01/05/23 metronidazole 500 mg tablet 500 mg PO Q8H #18 tabs 01/05/23 naproxen 500 mg tablet 500 mg PO BID 7 days #14 tabs 06/16/23 prednisone 20 mg tablet 20 mg PO DAILY 7 days #7 tabs 01/09/23 Allergies Allergy/AdvReac Type Severity Reaction Status Date / Time No Known Allergies Allergy Verified 09/03/20 11:30 Review of Systems Constitutional: Constitutional: Reports no additional constitutional complaints, Denies chills, Denies fever(s) and Denies night sweats Eyes: Eyes: Reports no additional eye complaints, Denies blurry vision, Denies change in vision, Denies diplopia, Denies eye discharge, Denies loss of vision and Denies eye pain ENT: Denies dizziness Cardiovascular: Cardiovascular: Reports no additional cardiovascular complaints, Denies chest pain, Denies lightheadedness, Denies Loss of Con sciousness and Denies dyspnea Respiratory: Respiratory: Reports no additional respiratory complaints and Denies dyspnea Gastrointestinal: Gastrointestinal: Reports no additional gastrointestinal complaints, Denies abdominal pain, Denies melena, Denies hematochezia, Denies change in bowel habits and Denies change in stool character Genitourinary: Genitourinary: Reports no additional male genitourinary complaints, Denies hematuria, Denies oliguria, Denies difficulty urinating, Denies dysuria, Denies urinary frequency, Denies urinary hesitancy, Denies urinary incontinence and Denies urinary urgency Musculoskeletal: Musculoskeletal: Reports no additional musculoskeletal complaints, Denies numbness and Denies tingling Comments: left great toe redness, swelling, pain Neurologic: Denies dizziness, Denies loss of vision, Denies numbness and Denies tingling Psychiatric: Psychiatric: Reports no additional psychiatric complaints Endocrine: Endocrine: Reports no additional endocrine complaints Hematologic/Lymphatic: Hematologic/Lymphatic: Reports no additional hematologic/lymphatic complaints Allergic/Immunologic: Allergic/Immunologic: Reports no additional allergic/immunologic complaints [facility] Past Medical History Attestation statement: The following information was validated with the patient. Source: old records reviewed and nursing notes reviewed Medical History Diabetes mellitus, type 2 Hypercholesteremia Hypertension Social History Social History Household Members: None Housing: Apartment Do you presently have visiting nurse or other home services: No Patient Tobacco Use Status: Former Tobacco user Tobacco use type: Cigarette e-Cigarette/Vaping Use: Never Used Advance Directives: No Advance Directives Information Provided: Yes service: No Current occupational status: retired Physical Exam ED Vital Signs: Vital Signs - 24 hr 01/09/23 09:33 Temperature 98.0 F Pulse Rate 88 Respiratory Rate 20 Blood Pressure 150/100 H Pulse Oximetry 96 Oxygen Delivery Method Room Air BMI result Body Mass Index 29.5 Const General: cooperative, no acute distress, alert and awake Nutritional Appearance: well nourished Orientation/consciousness: patient oriented x3 Limitations: no limitations HENMT Head: Yes normal to inspection and Yes atraumatic Ears: hearing grossly normal bilaterally and external ears normal General nose exam: Normal external nose present, no nasal discharge noted and no epistaxis Face and sinus: Yes normal facial exam, No abrasion and No laceration Mouth: Normal oral and palatal mucosa present, no drooling and no muffled voice Eyes General: appearance normal, both eyes and all related structures Periorbital: periorbital findings normal Eyelids: Yes eyelids normal Conjunctivae: conjunctivae normal Pupils: Equal, round and reactive pupils present EOM: EOMs intact bilaterally Neck Neck: Yes normal visual inspection, Yes full ROM and Yes no lymphadenopathy Chest Chest palpation & inspection: normal inspection of the chest Resp Effort & Inspection: normal respiratory effort and able to speak in complete sentences GI Inspection: Yes normal to inspection Neuro General: patient oriented x3 and moves all extremities Cranial nerves: Yes Equal, round and reactive pupils present Cognition (Neuro): normal cognition Motor exam (neuro): 5/5 motor strength present throughout Sensory Exam: Normal double simultaneous stimulation for sensation Coordination: [id number] test normal Extrem Other: minimal redness to the left great toe, no warmth General: Yes full ROM and Yes capillary refill normal Psych Appearance: grossly normal Mental Status: mental status grossly normal Affect: normal affect Attitude: cooperative Thought process: Normal thought process present Thought content: Normal thought content present Insight: Good insight present (Psych) Medical Decision Making Medical Decision Making MDM Narrative: Patient is a 72 year old assigned male at with a history of DM, HTN, diverticulitis, and gout presenting to the emergency department today with left great toe pain. Patient's physical exam was as noted in the physical exam portion of this chart. I explained my physical exam findings to the patient. I answered all questions asked by the patient. I stressed the importance of the patient taking his medication as prescribed. I stressed the importance of the patient following up with his primary care provider. I stressed the importance of the patient returning to the emergency department immediately if his symptoms were to worsen or if he were to develop any dizziness, shortness of breath, dif ficulty breathing, chest pain, blurry vision, loss of vision, nausea, vomiting, abdominal pain, fever, chills, back pain, or any other complaints. Patient verbalized agreement and understanding with this treatment plan and discharge. Differential Diagnosis Differential Diagnoses: The differential diagnosis associated with the presentation includes gout, toe pain Chronic Conditions Patient?s care impacted by: Diabetes and Hypertension Discharge Plan Discharge Clinical Impression: Gout Patient Disposition: Home, Self-Care Instructions: Low Purine Diet (ED), Gout (ED) Additional Instructions: Follow up with your primary care provider. Return to the emergency department immediately if your symptoms worsen or if you develop any dizziness, shortness of breath, difficulty breathing, chest pain, blurry vision, loss of vision, nausea, vomiting, abdominal pain, fever, chills, back pain, or any other complaints. Prescriptions: New prednisone 20 mg tablet 20 mg PO DAILY 7 Days Qty: 7 0RF naproxen 500 mg tablet 500 mg PO BID 7 Days Qty: 14 0RF No Action atenolol 100 mg tablet 100 mg PO DAILY aspirin 81 mg tablet,delayed release (DR/EC) 81 mg PO DAILY acetaminophen 500 mg Tablet 500 mg PO Q6H PRN (Reason: Fever Or Pain) simvastatin 20 mg tablet 20 mg PO BEDTIME losartan 100 mg tablet 100 mg PO DAILY metformin 500 mg tablet extended release 24 hr 1,000 mg PO DAILY cefuroxime axetil 500 mg tablet 500 mg PO BID Qty: 12 0RF metronidazole 500 mg tablet 500 mg PO Q8H Qty: 18 0RF Referrals: Jr Perez MD [Primary Care Provider] - Discharge Date/Time: 01/09/23 10:09 Print Language: Vietnamese
--- NOTE | 2023-01-09 10:07 | PC.NURSE ---
PT WAS SEEN AND DISCHARGED BY PROVIDER
== END 2023-01-09 10:09 | disposition home or self-care (01) ==
LOC: HO.ED 10:07
PROVIDERS: Emergency Provider Emergency Medicine; PCP Internal Medicine
DX: M10.072 Idiopathic gout, left ankle and foot (principal); Z87.891 Personal history of nicotine dependence; Z79.899 Other long term (current) drug therapy
CPT/HCPCS: 99282; 99283

== ENCOUNTER 2023-07-16 12:25 | Outpatient (REF) | payer MEDICARE, SELFPAY | END 2023-07-16 12:26 | disposition home or self-care (01) | LOC: HO.HHCX 12:25 | PROVIDERS: Visit Provider Internal Medicine | DX: M1A.9XX0 Chronic gout, unspecified, without tophus (tophi) (principal) | CPT/HCPCS: 73630 ==

== ENCOUNTER 2023-08-06 08:27 | Outpatient (REF) | payer MEDICARE, SELFPAY ==
--- NOTE | 2023-08-06 08:34 | EMG_ITS ---
Bilateral tibial and peroneal motor studies were performed. Bilateral superficial peroneal and sural sensory studies were performed. Bilateral median and lateral plantar sensory studies were performed. Tibial H reflexes were obtained and paraspinal muscles were tested with a needle. 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 No evidence of radiculopathy. MD RICARDA Aguilar/ROBL / [id number]
== END 2023-08-06 08:28 | disposition home or self-care (01) ==
LOC: HO.NEURO 08:27
PROVIDERS: PCP Internal Medicine; Visit Provider Internal Medicine
DX: M79.604 Pain in right leg (principal); M79.605 Pain in left leg
CPT/HCPCS: 95886; 95913

== ENCOUNTER 2023-08-25 09:48 | Outpatient (REF) | payer MEDICARE, SELFPAY ==
[2023-08-25 12:07] LABS: Alanine Aminotransferase 26 U/L (0-40); Albumin Level 4.2 g/dL (3.5-5.0); Alkaline Phosphatase 58 U/L (39-117); Aspartate Amino Transferase 22 U/L (5-37); Bilirubin Direct 0.1 mg/dL (0.0-0.5); Bilirubin Total 0.4 mg/dL (0.0-1.0); Cholesterol 165 mg/dL (<200); HDL Cholesterol 41 mg/dL (>40); LDL Cholesterol Calculated 85 mg/dL (<100); Total Protein 8.1 g/dL (6.5-8.0); Triglycerides 197 mg/dL (<150)
[2023-08-25 12:34] LABS: Folate 11.1 ng/mL (> or = 4.0); Vitamin B12 343 pg/mL (200-900)
[2023-08-25 13:43] LABS: Reflex LDLD? No
[2023-08-27 07:08] LABS: RPR Rapid Plasma Reagin NON-REACTIVE (NON-REACTIVE)
== END 2023-08-25 09:49 | disposition home or self-care (01) ==
LOC: HO.HHCL 09:48
PROVIDERS: Visit Provider Internal Medicine
DX: E78.00 Pure hypercholesterolemia, unspecified (principal); M79.604 Pain in right leg; M79.605 Pain in left leg
CPT/HCPCS: 36415; 80061; 80076; 82607; 82746; 86592

== ENCOUNTER 2023-09-03 01:21 | Emergency (ER) | payer MEDICARE, SELFPAY ==
[2023-09-03 01:37] VITALS: BP 165/98; BP 190/100; PULSE 85; PULSE 95; RESP 18; TEMP 36.5; O2SAT 100; O2SAT 96; BMI 36.4
--- NOTE | 2023-09-03 01:44 | ECG_ITS ---
Test Reason : HYPERTENSION Blood Pressure : / mmHG Vent. Rate : 086 BPM Atrial Rate : 086 BPM P-R Int : 150 ms QRS Dur : 080 ms QT Int : 370 ms P-R-T Axes : 042 018 057 degrees QTc Int : 442 ms Normal sinus rhythm Normal ECG No previous ECGs available Referred By: Generic ED Physician Electronically Signed By:YVON FULLER
[2023-09-03 02:00] LABS: MANUAL DIFF FLAG NO
[2023-09-03 02:07] LABS: Basophils Percent Auto 0.5 % (0-2); Eosinophils Absolute Auto 0.1 X10*3/uL (0.0-0.4); Eosinophils Percent Auto 1.8 % (0-4); Hematocrit 38.5 % (42.0-52.0); Imm Gran Abs Auto 0.01 X10*3/uL (0.00-0.03); Imm Gran Pct Auto 0.2 % (0.0-0.4); Lymphocytes Absolute Auto 2.1 X10*3/uL (1.2-4.9); Lymphocytes Percent Auto 33.2 % (20-40); Mean Corpuscular HGB Conc 33.8 g/dl (31.0-36.0); Mean Corpuscular Hemoglobin 31.9 pg (27.0-33.0); Mean Corpuscular Volume 94.6 fL (80.0-98.0); Mean Platelet Volume 10.2 fL (9.4-12.4); Monocytes Absolute Auto 0.4 X10*3/uL (0.1-1.2); Monocytes Percent Auto 6.1 % (2-11); Neutrophils Absolute Auto 3.7 x10*3/uL (2.0-8.3); Neutrophils Percent Auto 58.2 % (45-73); Platelet Count 197 X10*3/uL (160-400); Red Blood Count 4.07 X10*6/uL (4.60-5.80); Red Cell Distribution Width 13.4 % (11.0-16.0); White Blood Count 6.3 X10*3/uL (4.8-10.8)
[2023-09-03 02:26] LABS: Alanine Aminotransferase 27 U/L (0-40); Albumin Level 4.1 g/dL (3.5-5.0); Alkaline Phosphatase 60 U/L (39-117); Anion Gap 16 (12-20); Aspartate Amino Transferase 23 U/L (5-37); Bilirubin Total 0.2 mg/dL (0.0-1.0); Blood Urea Nitrogen 24 mg/dL (9-16); Calcium 9.2 mg/dL (8.4-10.2); Carbon Dioxide 20 mmol/L (22-29); Chloride 113 mmol/L (96-108); Creatinine Clr Calc Pharmacy 53.1; Estimated Glomerular Filt Rate 57; Ethanol 187 mg/dL; Glucose Random 127 mg/dL (60-115); Potassium 4.1 mmol/L (3.3-5.1); Sodium 145 mmol/L (135-145); Troponin-I High Sensitivity < 2.7 ng/L (<3.5-35.0)
--- NOTE | 2023-09-03 03:07 | MHC.EDTECH ---
PT REQUESTING TO GO TO BATHROOM, URINAL OFFERED DUE TO PT COMPLAINING OF SEVERE LEG PAIN AND STATING HE IS UNABLE TO LIFT LEG. PT REFUSED TO USE URINAL. AWAITING PROVIDER ASSESSMENT.
--- NOTE | 2023-09-03 03:51 | ED.GENADULT ---
HPI - General Adult General Chief complaint: General Medical Stated complaint: HTN Chronic shoulder and leg pain Time Seen by Provider: 09/03/23 03:51 History of Present Illness HPI narrative: The patient is a 73-year-old male who was brought to the hospital by ambulance after being found intoxicated in his car. Apparently he was in the parking lot for his building when people saw him passed out in his car and therefore they called the police. The patient was ultimately brought to the emergency department. After arriving here he said that he does not want to be here. He wants to be at home. He was not feeling ill. He says that he has a lot of chronic body pains but would simply like to be discharged. Related Data Home Medications Medication Instructions Recorded Confirmed acetaminophen 500 mg tablet 500 mg PO Q6H PRN Fever Or Pain 01/04/23 01/04/23 aspirin 81 mg tablet,delayed 81 mg PO DAILY 01/04/23 01/04/23 release atenolol 100 mg tablet 100 mg PO DAILY 01/04/23 01/04/23 losartan 100 mg tablet 100 mg PO DAILY 01/04/23 01/04/23 metformin 500 mg tablet,extended 1,000 mg PO DAILY 01/04/23 01/04/23 release 24 hr simvastatin 20 mg tablet 20 mg PO BEDTIME 01/04/23 01/04/23 Previous Rx's Medication Instructions Recorded cefuroxime axetil 500 mg tablet 500 mg PO BID #12 tabs 01/05/23 metronidazole 500 mg tablet 500 mg PO Q8H #18 tabs 01/05/23 naproxen 500 mg tablet 500 mg PO BID 7 days #14 tabs 01/09/23 prednisone 20 mg tablet 20 mg PO DAILY 7 days #7 tabs 01/09/23 Allergies Allergy/AdvReac Type Severity Reaction Status Date / Time No Known Allergies Allergy Verified 09/03/20 11:30 Review of Systems Review of Systems: Yes all other systems are reviewed and are negative [facility] Past Medical History Medical History Diabetes mellitus, type 2 Hypercholesteremia Hypertension Social History Social History Household Members: None Housing: Apartment Do you presently have visiting nurse or other home services: No Alcohol intake: current Alcohol intake frequency: 0-2 drinks per day Patient Tobacco Use Status: Former Tobacco user Tobacco use type: Cigarette Smoked in Last 30 Days: No e-Cigarette/Vaping Use: Never Used Use of substances other than those prescribed or required for medical reasons: No Advance Directives: No Advance Directives Information Provided: Yes service: No Current occupational status: retired Physical Exam ED Vital Signs: Vital Signs - 24 hr 09/03/23 01:37 09/03/23 03:58 Temperature 97.7 F 97.7 F Pulse Rate 85 95 Respiratory Rate 18 18 Blood Pressure 165/98 H 189/104 H Pulse Oximetry 96 97 Oxygen Delivery Method Room Air Room Air BMI result Body Mass Index 36.4 Const Other: The patient was awake and alert. He did not seem acutely ill. HENMT Other: The face is symmetrical. ?Mucous membranes moist. Eyes Other: Pupils are round equal, conjunctivae are clear, extraocular movements intact Neck Neck: Yes no JVD Resp Effort & Inspection: normal respiratory effort Auscultation: clear to auscultation bilaterally Cardio Rate: regular rate Rhythm: regular rhythm Heart sounds: S1 normal heart sound present and S2 normal heart sound present GI Other: The abdomen is soft and nontender Skin Other: Skin is intact. Skin is dry and unremarkable. Neuro Other: The patient was awake and alert. He was somewhat histrionic. His face is symmetrical. His speech is clear. He moves his extremities symmetrically. Gait is reasonably steady. He seems grossly neurologically intact. Extrem Other: No peripheral edema Medical Decision Making Medical Decision Making MDM Narrative: The patient arrived at the hospital after having been found by police intoxicated in his car. The patient states that he was not driving his car he was simply resting in his car in the parking lot. The patient's ETOH level is 187. The patient was unhappy was in the emergency room and was complaining about being here and asking to leave prior to my evaluation. He describes a number of chronic pains but has no acute complaints of significance. I did not see any indication to pursue any other investigations while he is in the emergency room. I think he may be discharged to follow up with his regular doctor. The patient is concerned about his elevated blood pressure readings. I think these can be followed up as an outpatient. Lab Data 09/03/23 01:52 09/03/23 01:52 Labs: Lab Results 09/03/23 Range/Units 01:52 WBC 6.3 (4.8-10.8) X10*3/uL RBC 4.07 L (4.60-5.80) X10*6/uL Hgb 13.0 L (14.0-18.0) g/dl Hct 38.5 L (42.0-52.0) % MCV 94.6 (80.0-98.0) fL MCH 31.9 (27.0-33.0) pg MCHC 33.8 (31.0-36.0) g/dl RDW 13.4 (11.0-16.0) % Plt Count 197 (160-400) X10*3/uL MPV 10.2 (9.4-12.4) fL Immature Gran % (Auto) 0.2 (0.0-0.4) % Neut % (Auto) 58.2 (45-73) % Lymph % (Auto) 33.2 (20-40) % [place] % (Auto) 6.1 (2-11) % Eos % (Auto) 1.8 (0-4) % Baso % (Auto) 0.5 (0-2) % Lymph # (Auto) 2.1 (1.2-4.9) X10*3/uL [place] # (Auto) 0.4 (0.1-1.2) X10*3/uL Eos # (Auto) 0.1 (0.0-0.4) X10*3/uL Baso # (Auto) 0.0 (0.0-0.2) X10*3/uL Abs Immat Gran (auto) 0.01 (0.00-0.03) X10*3/uL Absolute Neuts (auto) 3.7 (2.0-8.3) x10*3/uL Absolute Nucleated RBC 0.000 (0.0-0.012) X10*3/uL Nucleated RBC % (auto) 0.0 (0.0-0.2) /100WBC Sodium 145 (135-145) mmol/L Potassium 4.1 (3.3-5.1) mmol/L Chloride 113 H (96-108) mmol/L Carbon Dioxide 20 L (22-29) mmol/L Anion Gap 16 (12-20) BUN 24 H (9-16) mg/dL Creatinine 1.25 (0.5-1.4) mg/dL Estim Creat Clear Calc 53.1 Estimated GFR 57 Random Glucose 127 H (60-115) mg/dL Calcium 9.2 (8.4-10.2) mg/dL Total Bilirubin 0.2 (0.0-1.0) mg/dL AST 23 (5-37) U/L ALT 27 (0-40) U/L Alkaline Phosphatase 60 (39-117) U/L Troponin I High Sens < 2.7 (<3.5-35.0) ng/L Total Protein 8.0 (6.5-8.0) g/dL Albumin 4.1 (3.5-5.0) g/dL Ethyl Alcohol 187 mg/dL Discharge Plan Discharge Clinical Impression: Alcohol intoxication, Hypertension Patient Disposition: Home, Self-Care Additional Instructions: Rest and take it easy tonight. Use acetaminophen as needed for pain. Continue your current medications. Please call your regular doctors office in the morning to see if you can get an earlier follow-up appointment to discuss your blood pressure management. Return to the emergency room if worse. Prescriptions: No Action atenolol 100 mg tablet 100 mg PO DAILY aspirin 81 mg tablet,delayed release (DR/EC) 81 mg PO DAILY acetaminophen 500 mg Tablet 500 mg PO Q6H PRN (Reason: Fever Or Pain) simvastatin 20 mg tablet 20 mg PO BEDTIME losartan 100 mg tablet 100 mg PO DAILY metformin 500 mg tablet extended release 24 hr 1,000 mg PO DAILY cefuroxime axetil 500 mg tablet 500 mg PO BID Qty: 12 0RF metronidazole 500 mg tablet 500 mg PO Q8H Qty: 18 0RF prednisone 20 mg tablet 20 mg PO DAILY 7 Days Qty: 7 0RF naproxen 500 mg tablet 500 mg PO BID 7 Days Qty: 14 0RF Referrals: Jr Perez MD [Physician] - (Hypertension, alcohol intoxication) Interventions: ED Discharge Assessment Last Done: 09/03/23 04:15 Discharge Date/Time: 09/03/23 04:17
[2023-09-03 03:58] VITALS: BP 189/104; PULSE 95; RESP 18; TEMP 36.5; O2SAT 97
--- NOTE | 2023-09-03 04:12 | PC.NURSE ---
pt asking to go home, provider seen pt and pt son is the sober ride home. pt states his pain to his right leg has not resolved but doesnt want to wait any longer. pt has steady gait, is now cooperative and is listening to what the provider is telling him, bp elevated and made known to the provider and pt is ok to be discharges.
== END 2023-09-03 04:17 | disposition home or self-care (01) ==
PROVIDERS: Emergency Provider Emergency Medicine
DX: F10.129 Alcohol abuse with intoxication, unspecified (principal); I10 Essential (primary) hypertension; M79.10 Myalgia, unspecified site; Y90.6 Blood alcohol level of 120-199 mg/100 ml; Z79.899 Other long term (current) drug therapy
CPT/HCPCS: 36415; 80053; 80307; 84484; 85025; 93005; 99283; 99284

== ENCOUNTER → 2023-09-03 01:44 | Outpatient (BNV) | payer MEDICARE, SELFPAY | PROVIDERS: Emergency Provider Emergency Medicine; Visit Provider Internal Medicine | DX: I10 Essential (primary) hypertension (principal) | CPT/HCPCS: 93010 ==

== ENCOUNTER 2023-09-29 09:21 | Outpatient (REF) | payer MEDICARE, SELFPAY ==
--- NOTE | ~2023-09-29 | XR_ITS ---
EXAMINATION: XR BILATERAL SHOULDERS XR BILATERAL HIPS XR BILATERAL KNEES CLINICAL INFORMATION: Fall 3 weeks ago now with bilateral pain in the hips, knees and shoulders. COMPARISON: Right shoulder 12/29/2020, left shoulder 01/08/2017. TECHNIQUE: 3 views each shoulder, 2 views each hip, 2 views each knee. FINDINGS: SHOULDERS: No significant bone, joint or soft tissue abnormality is seen in either shoulder. HIPS: Mild degenerative changes are present in the hips with supra-acetabular sclerosis and some minimal osteophytes. Findings appear slightly worse on the left than the right. No fractures or dislocations. The visualized portions of the pelvis appear unremarkable. KNEES: No significant bone, joint or soft tissue abnormality is seen in either knee. XR/XR knee RT 3V IMPRESSION: 1. No evidence of an acute osseous injury. 2. Mild degenerative changes in the hips.
--- NOTE | ~2023-09-29 | XR_ITS ---
EXAMINATION: XR BILATERAL SHOULDERS XR BILATERAL HIPS XR BILATERAL KNEES CLINICAL INFORMATION: Fall 3 weeks ago now with bilateral pain in the hips, knees and shoulders. COMPARISON: Right shoulder 12/29/2020, left shoulder 01/08/2017. TECHNIQUE: 3 views each shoulder, 2 views each hip, 2 views each knee. FINDINGS: SHOULDERS: No significant bone, joint or soft tissue abnormality is seen in either shoulder. HIPS: Mild degenerative changes are present in the hips with supra-acetabular sclerosis and some minimal osteophytes. Findings appear slightly worse on the left than the right. No fractures or dislocations. The visualized portions of the pelvis appear unremarkable. KNEES: No significant bone, joint or soft tissue abnormality is seen in either knee. XR/XR shoulder LT min 2V IMPRESSION: 1. No evidence of an acute osseous injury. 2. Mild degenerative changes in the hips.
--- NOTE | ~2023-09-29 | XR_ITS ---
EXAMINATION: XR BILATERAL SHOULDERS XR BILATERAL HIPS XR BILATERAL KNEES CLINICAL INFORMATION: Fall 3 weeks ago now with bilateral pain in the hips, knees and shoulders. COMPARISON: Right shoulder 12/29/2020, left shoulder 01/08/2017. TECHNIQUE: 3 views each shoulder, 2 views each hip, 2 views each knee. FINDINGS: SHOULDERS: No significant bone, joint or soft tissue abnormality is seen in either shoulder. HIPS: Mild degenerative changes are present in the hips with supra-acetabular sclerosis and some minimal osteophytes. Findings appear slightly worse on the left than the right. No fractures or dislocations. The visualized portions of the pelvis appear unremarkable. KNEES: No significant bone, joint or soft tissue abnormality is seen in either knee. XR/XR knee LT 2V IMPRESSION: 1. No evidence of an acute osseous injury. 2. Mild degenerative changes in the hips.
--- NOTE | ~2023-09-29 | XR_ITS ---
EXAMINATION: XR BILATERAL SHOULDERS XR BILATERAL HIPS XR BILATERAL KNEES CLINICAL INFORMATION: Fall 3 weeks ago now with bilateral pain in the hips, knees and shoulders. COMPARISON: Right shoulder 12/29/2020, left shoulder 01/08/2017. TECHNIQUE: 3 views each shoulder, 2 views each hip, 2 views each knee. FINDINGS: SHOULDERS: No significant bone, joint or soft tissue abnormality is seen in either shoulder. HIPS: Mild degenerative changes are present in the hips with supra-acetabular sclerosis and some minimal osteophytes. Findings appear slightly worse on the left than the right. No fractures or dislocations. The visualized portions of the pelvis appear unremarkable. KNEES: No significant bone, joint or soft tissue abnormality is seen in either knee. XR/XR shoulder RT min 2V IMPRESSION: 1. No evidence of an acute osseous injury. 2. Mild degenerative changes in the hips.
--- NOTE | ~2023-09-29 | XR_ITS ---
EXAMINATION: XR BILATERAL SHOULDERS XR BILATERAL HIPS XR BILATERAL KNEES CLINICAL INFORMATION: Fall 3 weeks ago now with bilateral pain in the hips, knees and shoulders. COMPARISON: Right shoulder 12/29/2020, left shoulder 01/08/2017. TECHNIQUE: 3 views each shoulder, 2 views each hip, 2 views each knee. FINDINGS: SHOULDERS: No significant bone, joint or soft tissue abnormality is seen in either shoulder. HIPS: Mild degenerative changes are present in the hips with supra-acetabular sclerosis and some minimal osteophytes. Findings appear slightly worse on the left than the right. No fractures or dislocations. The visualized portions of the pelvis appear unremarkable. KNEES: No significant bone, joint or soft tissue abnormality is seen in either knee. XR/XR hip LT min 2V IMPRESSION: 1. No evidence of an acute osseous injury. 2. Mild degenerative changes in the hips.
--- NOTE | ~2023-09-29 | XR_ITS ---
EXAMINATION: XR BILATERAL SHOULDERS XR BILATERAL HIPS XR BILATERAL KNEES CLINICAL INFORMATION: Fall 3 weeks ago now with bilateral pain in the hips, knees and shoulders. COMPARISON: Right shoulder 12/29/2020, left shoulder 01/08/2017. TECHNIQUE: 3 views each shoulder, 2 views each hip, 2 views each knee. FINDINGS: SHOULDERS: No significant bone, joint or soft tissue abnormality is seen in either shoulder. HIPS: Mild degenerative changes are present in the hips with supra-acetabular sclerosis and some minimal osteophytes. Findings appear slightly worse on the left than the right. No fractures or dislocations. The visualized portions of the pelvis appear unremarkable. KNEES: No significant bone, joint or soft tissue abnormality is seen in either knee. XR/XR hip RT min 2V IMPRESSION: 1. No evidence of an acute osseous injury. 2. Mild degenerative changes in the hips.
[2023-09-29 12:17] LABS: ~HepC Num1 0.15 S/CO (0.00-0.79); ~Hepatitis C Antibody Nonreactive (Nonreactive)
[2023-09-29 12:29] LABS: Anion Gap 11 (12-20); Blood Urea Nitrogen 22 mg/dL (9-16); Calcium 9.9 mg/dL (8.4-10.2); Carbon Dioxide 23 mmol/L (22-29); Chloride 109 mmol/L (96-108); Cholesterol 133 mg/dL (<200); Estimated Glomerular Filt Rate 51; Glucose Random 131 mg/dL (60-115); HDL Cholesterol 35 mg/dL (>40); LDL Cholesterol Calculated 71 mg/dL (<100); Sodium 139 mmol/L (135-145); Triglycerides 139 mg/dL (<150); Uric Acid 6.5 mg/dL (3.4-7.0)
[2023-09-29 12:30] LABS: Erythrocyte Sedimentation Rate 82 MM/HR (0-15)
[2023-09-29 13:24] LABS: Reflex LDLD? No
== END 2023-09-29 09:22 | disposition home or self-care (01) ==
LOC: HO.HHCL 09:21
PROVIDERS: Visit Provider Internal Medicine
DX: I10 Essential (primary) hypertension (principal); M25.551 Pain in right hip; M25.552 Pain in left hip; M25.511 Pain in right shoulder; M25.512 Pain in left shoulder; M25.561 Pain in right knee; M25.562 Pain in left knee
CPT/HCPCS: 36415; 73030; 73502; 73560; 73562; 80048; 80061; 84550; 85652; 86803

== ENCOUNTER 2023-12-29 09:57 | Outpatient (REF) | payer MEDICARE, SELFPAY ==
[2023-12-29 12:07] LABS: Prothrombin Time 11.6 SEC (11.1-13.3)
[2023-12-29 12:38] LABS: Erythrocyte Sedimentation Rate 23 MM/HR (0-15)
[2023-12-29 12:42] LABS: Rheumatoid Factor < 13.0 IU/mL (<15.0)
[2023-12-29 12:46] LABS: Prostate Specific Antigen 1.66 ng/mL (<0.05-4.0)
[2023-12-29 13:07] LABS: B Type Natriuretic Peptide 44 pg/mL (<100)
[2023-12-30 03:20] LABS: Syphilis Screen Nonreactive (Nonreactive)
[2024-01-01 21:14] LABS: ANA Titer 2 1:40 titer; Anti Nuclear Antibody Pattern Nuclear, Speckled; Anti Nuclear Antibody Screen POSITIVE (NEGATIVE)
[2024-01-04 23:09] LABS: Prot Elec - Albumin 4.2 g/dL (3.8-4.8); Prot Elec - Alpha1 0.3 g/dL (0.2-0.3); Prot Elec - Alpha2 0.9 g/dL (0.5-0.9); Prot Elec - Beta 1 0.5 g/dL (0.4-0.6); Prot Elec - Beta 2 0.4 g/dL (0.2-0.5); Prot Elec - Gamma 1.5 g/dL (0.8-1.7); Prot Elec - Total Protein 7.8 g/dL (6.1-8.1)
== END 2023-12-29 09:58 | disposition home or self-care (01) ==
LOC: HO.HHCL 09:57
PROVIDERS: Visit Provider Internal Medicine
DX: Z12.5 Encounter for screening for malignant neoplasm of prostate (principal); R70.0 Elevated erythrocyte sedimentation rate; M25.551 Pain in right hip; M25.552 Pain in left hip; R60.0 Localized edema; K76.89 Other specified diseases of liver
CPT/HCPCS: 36415; 83880; 84153; 84165; 85610; 85652; 86038; 86039; 86431; 86780

== ENCOUNTER 2024-01-11 08:04 | Outpatient (REF) | payer MEDICARE, SELFPAY ==
--- NOTE | ~2024-01-11 | US_ITS ---
EXAMINATION: US ABDOMEN LIMITED CLINICAL INFORMATION: Liver cyst. COMPARISON: CT abdomen and pelvis 01/04/2023. TECHNIQUE: Real-time imaging of the right upper quadrant abdominal viscera. FINDINGS: PANCREAS: Pancreas is obscured by overlying bowel gas LIVER: The liver is normal in size. The liver contour is normal. There is diffuse increase in liver echogenicity. Previously described left hepatic lobe simple cyst on prior CT dated 08/01/2022, is not visualized. There is no intrahepatic biliary duct dilatation seen. GALLBLADDER: The gallbladder is physiologically distended without evidence of stones, sludge, polyps, wall thickening or pericholecystic fluid. COMMON BILE DUCT: Normal in caliber measuring 0.6 cm in diameter. RIGHT KIDNEY: No hydronephrosis or renal calculi. The kidney measures 9.2 cm in maximum dimension. Again noted lobulated contour of the right kidney. Benign-appearing simple cysts within the upper and midpole of the right kidney largest measuring up to 1.8 cm. No dedicated follow-up imaging is required for simple cysts. FREE FLUID: None. US/US abdomen limited IMPRESSION: Diffuse increase in liver echogenicity which can be seen with hepatic steatosis. Previously described left hepatic lobe simple cyst on prior CT dated 08/01/2022 is not visualized.
== END 2024-01-11 08:05 | disposition home or self-care (01) ==
LOC: HO.US 08:04
PROVIDERS: PCP Internal Medicine; Visit Provider Internal Medicine
DX: K76.89 Other specified diseases of liver (principal)
CPT/HCPCS: 76705

== ENCOUNTER → 2024-01-19 07:37 | Outpatient (REF) | payer MEDICARE, SELFPAY ==
--- NOTE | 2024-01-19 07:40 | CA_ITS ---
Transthoracic Echocardiogram Patient (Last, First, Middle): Christopher Rodriguez F Gender: Male Date of : 1950 Age: 73 Procedure Date: 01/19/2024 Procedure Type: Transthoracic Echocardiogram Location: OP Height: 160.02 cm Weight: 89.81 kg BSA: 1.93 m2 Heart Rate: bpm BP: 128 / 82 mmHg Occupancy Specialist: TO Referring MD: Jr Perez MD Director Environmental: Spenser Carr MD Symptoms: I10 HTN ELEV ESR Study Quality: Fair ECG Rhythm: Sinus Conclusions: - 1. Normal LV ejection fraction 55-60% with impaired relaxation filling pattern 2. Mildly dilated aortic root at 4.1 cm 3. Trivial aortic regurgitation 4. Normal RV systolic pressure 5. No gross pericardial effusion Findings Procedure Information The study quality is limited by patients body habitus. The patient declines contrast. Left Ventricle Normal left ventricular size, thickness, and systolic function. The visually estimated ejection fraction is between 55-60%. Regional wall motion abnormalities can not be excluded due to suboptimal endocardial definition. Spectral Doppler is indicative of an impaired relaxation filling pattern. E/E prime ratio is between 8 and 15 consistent with indeterminate filling pressures. Right Ventricle Normal right ventricular cavity size and systolic function. Atria The left atrium is likely dilated. There is no evidence of interatrial shunt. The right atrium is normal in size. Aortic Valve There is mild calcification of the aortic valve. There is no aortic valve stenosis. There is trace (trivial) aortic valve regurgitation. Mitral Valve Normal mitral valve structure and function. There is trace mitral valve regurgitation. There is no mitral valve stenosis. Pulmonic Valve The pulmonic valve was not well visualized. Tricuspid Valve Likely normal tricuspid valve structure and function. There is trace tricuspid valve regurgitation. The right ventricular systolic pressure is normal. The right ventricular systolic pressure is 26 mmHg. Normal right atrial pressure. There is no evidence of pulmonary hypertension. Great Vessels The pulmonary artery was not well visualized. There is mild dilatation of the sinuses of Valsalva measuring 4.13 cm. Pericardium/Pleural The pericardium was not well visualized. Prior Study Comparison no previous study in the last 5 years for comparison Measurements 2D Linear Measurements IVSd: 1.03 0.6-0.9/0.6-1.0 cm LVIDd: 4.64 3.9-5.3/4.2-5.9 cm LVIDd Index: 2.40 2.4-3.2/2.2-3.1 cm/m2 LVIDs: 3.26 2.0-3.6 cm LVPWd: 0.86 0.7-1.1 cm LA Diam: 3.40 2.7-3.8/3.0-4.0 cm LAIDs Index: 1.76 1.5-2.3 cm/m2 LV Mass: 185.02 67-162/88-224 g LV Mass Index: 95.87 43-95/49-115 g/m2 LVOT Diam: 2.20 3.0+(-)1.3 cm 2D Systolic Function EF 2C: 57.20 >55% Mitral Valve MV Pk E: 0.44 MV PK A: 0.84 MV Decel Time: 224.00 E/A: 0.50 E'Lateral: 4.68 E'Medial: 4.03 E/E' Med: 10.90 E/E' Lat: 9.40 PHT: 66.00 MVA PHT: 3.33 Decel [place]: 1.97 Aortic Valve AoV Pk Adrian: 1.13 AoV Mn Adrian: 0.78 AoV VTI: 0.26 AoV Pk Grad: 5.00 Aov Mn Grad: 3.00 JANE Cont.VTI: 2.76 LVOT LVOT Pk Adrian: 0.83 LVOT Mn Adrian: 0.52 LVOT VTI: 0.19 LVOT Pk Grad: 3.00 LVOT Mn Grad: 1.00 LVOT Diam: 2.20 LVOT Area: 3.80 Diastolic Function MV Pk E: 0.44 MV Pk A: 0.84 E/A: 0.50 E'Medial: 4.03 E/E' Med: 10.90 E' Laterial: 4.68 E/E' Lat: 9.40 Right Ventricle TAPSE (mm): 18.70 TVS' Adrian: 10.00 Tricuspid Valve TR Pk Adrian: 2.38 TR Pk Grad: 23.00 RA Press: 3.00 RVSP: 26.00 Great Vessels Aorta Sinus of Valsalva: 4.13 2.0-3.[address] [place]: 2.89 1.7-3.4 cm Ao Asc: 3.40 2.1-3.4 cm Ao Arch: 2.70 Updated in Other Vendor System with Status of Final Spenser Carr MD electronically signed on 01/19/2024 4:37:19 PM with status of Final
== END ==
LOC: HO.CARD 07:37
PROVIDERS: PCP Internal Medicine; Visit Provider Internal Medicine
DX: I10 Essential (primary) hypertension (principal)
CPT/HCPCS: 93306

== ENCOUNTER → 2024-01-19 07:40 | Outpatient (BNV) | payer MEDICARE, SELFPAY | PROVIDERS: PCP Internal Medicine; Visit Provider Internal Medicine Cardiovascular Disease | DX: I35.1 Nonrheumatic aortic (valve) insufficiency (principal); I35.8 Other nonrheumatic aortic valve disorders; R93.1 Abnormal findings on diagnostic imaging of heart and coronary circulation | CPT/HCPCS: 93306 ==

== ENCOUNTER 2024-01-30 10:11 | Emergency (ER) | payer MEDICARE, SELFPAY ==
--- NOTE | ~2024-01-30 | XR_ITS ---
EXAMINATION: CHEST 2 VIEWS CLINICAL INFORMATION: cough. COMPARISON: 07/17/2022. TECHNIQUE: PA and lateral views of the chest obtained. FINDINGS: The lungs are well expanded. No focal infiltrate, effusion, edema, or pneumothorax. Cardiac and mediastinal silhouettes are within normal limits for technique. No acute bony abnormality seen XR/XR chest 2V IMPRESSION: No evidence of acute disease
[2024-01-30 10:14] VITALS: BP 164/99; PULSE 84; RESP 18; TEMP 36.6; O2SAT 96; BMI 34.2
--- NOTE | 2024-01-30 10:18 | ECG_ITS ---
Test Reason : chest pain Blood Pressure : / mmHG Vent. Rate : 076 BPM Atrial Rate : 076 BPM P-R Int : 146 ms QRS Dur : 074 ms QT Int : 368 ms P-R-T Axes : 015 012 052 degrees QTc Int : 414 ms Normal sinus rhythm Normal ECG When compared with ECG of 03-SEP-2023 01:45, No significant change was found Referred By: Generic ED Physician Electronically Signed By:YVON FULLER
--- NOTE | 2024-01-30 11:01 | ED.GENADULT ---
HPI - General Adult General Chief complaint: Upper Respiratory Symptoms Stated complaint: sore throat Time Seen by Provider: 01/30/24 10:29 Source: patient and RN notes reviewed Mode of arrival: ambulatory Limitations: no limitations History of Present Illness ED Provider: Lilian Saeed PA-C HPI narrative: This is a 73-year-old male, with a history of diabetes, hypercholesterolemia, and hypertension, who presents emergency department with complaints of cough, sore throat, congestion x 4 days. Patient states initially he had low-grade fevers and diarrhea. He states that this has since progressed into a dry cough, sore throat and congestion. He states that he does have chest pain only with coughing. Does not currently have any chest pain. He states that he has had decreased appetite. He also endorses intermittent diarrhea. He has been taking Imodium and Tylenol which has provided him with some relief. He also states that some of the foods he has been eating has an altered sense of taste. Denies any blurred vision, severe headache, chest pain, shortness breath, abdominal pain, vomiting. No bloody or black stool. No sick contacts. No other complaints or concerns at this time. MD complaint: Congestion, cough, sore throat Onset (ago): day(s) Radiation: non-radiation Relieving factors: none Exacerbating factors: none Associated symptoms: cough, fever/chills and loss of appetite Treatments prior to arrival: none Related Data Home Medications ?Medication ?Instructions ?Recorded ?Confirmed acetaminophen 500 mg tablet 500 mg PO Q6H PRN Fever Or Pain 01/04/23 01/04/23 aspirin 81 mg tablet,delayed 81 mg PO DAILY 01/04/23 01/04/23 release atenolol 100 mg tablet 100 mg PO DAILY 01/04/23 01/04/23 losartan 100 mg tablet 100 mg PO DAILY 01/04/23 01/04/23 metformin 500 mg tablet,extended 1,000 mg PO DAILY 01/04/23 01/04/23 release 24 hr simvastatin 20 mg tablet 20 mg PO BEDTIME 01/04/23 01/04/23 Previous Rx's ?Medication ?Instructions ?Recorded cefuroxime axetil 500 mg tablet 500 mg PO BID #12 tabs 01/05/23 metronidazole 500 mg tablet 500 mg PO Q8H #18 tabs 01/05/23 naproxen 500 mg tablet 500 mg PO BID 7 days #14 tabs 01/09/23 prednisone 20 mg tablet 20 mg PO DAILY 7 days #7 tabs 01/09/23 Allergies Allergy/AdvReac Type Severity Reaction Status Date / Time No Known Allergies Allergy Verified 01/30/24 10:16 Review of Systems Review of Systems: Yes all other systems are reviewed and are negative Constitutional: Constitutional: Reports as per [facility] Past Medical History Medical History Diabetes mellitus, type 2 Hypercholesteremia Hypertension Social History Social History Household Members: None Housing: Apartment Do you presently have visiting nurse or other home services: No Alcohol intake: current Alcohol intake frequency: 0-2 drinks per day Patient Tobacco Use Status: Former Tobacco user Tobacco use type: Cigarette e-Cigarette/Vaping Use: Never Used Advance Directives: No Advance Directives Information Provided: No Do you have a plan to hurt others: No Plan service: No Current occupational status: retired Physical Exam ED Vital Signs: Vital Signs - 24 hr 01/30/24 10:14 Temperature 97.8 F Pulse Rate 84 Respiratory Rate 18 Blood Pressure 164/99 H Pulse Oximetry 96 Oxygen Delivery Method Room Air BMI result Body Mass Index 34.2 Const General: cooperative, comfortable and no acute distress Orientation/consciousness: patient oriented x3 Limitations: no limitations HENMT Head: Yes normal to inspection, Yes normocephalic and Yes atraumatic Ears: hearing grossly normal bilaterally and TM's normal bilaterally General nose exam: Normal external nose present Face and sinus: Yes normal facial exam Mouth: Normal oral and palatal mucosa present, oropharynx normal and moist mucous membranes Throat: Yes posterior oropharynx normal Eyes General: appearance normal, both eyes and all related structures Eyelids: Yes eyelids normal Conjunctivae: conjunctivae normal Sclerae: sclerae normal Pupils: Equal, round and reactive pupils present EOM: EOMs intact bilaterally Neck Neck: Yes normal visual inspection, Yes full ROM and Yes no lymphadenopathy Lymphatic: no lymphadenopathy noted Chest Chest palpation & inspection: normal inspection of the chest Resp Effort & Inspection: normal respiratory effort and able to speak in complete sentences Auscultation: clear to auscultation bilaterally, no crackles, no rales, no rhonchi and no wheezes Cardio Rate: regular rate Rhythm: regular rhythm Heart sounds: S1 normal heart sound present and S2 normal heart sound present GI Other: Abdomen is soft, nontender, nondistended Inspection: Yes normal to inspection Skin General skin exam: no rashes or lesions noted Trauma: no lacerations or abrasions Wounds: no wounds Neuro General: patient oriented x3 and moves all extremities Cranial nerves: Yes Equal, round and reactive pupils present Extrem General: Yes normal to inspection Right upper extremity: normal to inspection Left upper extremity: normal to inspection Right lower extremity: normal to inspection Left lower extremity: normal to inspection Course Reevaluation(s) Reevaluation #1: Chest x-ray unremarkable, EKG, and viral swabs reviewed. Symptoms likely due to a viral URI. Discussed findings with patient. Also discussed the importance of taking his hypertensive medication, he will do so when he returns home. He understands and agrees with plan. Given return precautions. He understands and agrees with this plan, patient stable for discharge. Time: 11:47 Medical Decision Making Medical Decision Making MDM Narrative: This is a 73-year-old male, with a history of type 2 diabetes, hyperlipidemia, and hypertension, who presents emergency department with complaints of sore throat, congestion, and cough x4 days. On arrival, vital signs revealing blood pressure of 164/99, all other vital signs within normal limits. He is speaking in full sentences under no acute distress. Lungs are clear to auscultation bilaterally. Oropharynx unremarkable. He has no sinus pressure or pain on examination. Differential diagnoses include viral URI, pneumonia, COVID, flu, strep pharyngitis. Less likely ACS. He does report chest pain which only occurs with cough. He does not currently have pain. Plan: Viral swabs, strep swab, EKG, chest x-ray Differential Diagnosis Differential Diagnoses: The differential diagnosis associated with the presentation includes See above Admission/Observation Consideration of admission/observation: Escalation of care including admission/observation considered Lab Data [facility] Lab Attestation statement: I reviewed the patient's lab results. Negative viral swabs, negative strep Labs: Lab Results 01/30/24 Range/Units 10:26 Influenza Type A (PCR) NEGATIVE (Negative) Influenza Type B (PCR) NEGATIVE (Negative) RSV RNA Qual (PCR) NEGATIVE (Negative) SARS-CoV-2 RNA (RT-PCR) NEGATIVE (Negative) S. pyogenes GrpA JERRY Negative (Negative) Independent Interpretation I performed an independent interpretation of an: EKG and Plain X-Ray Interpretation: EKG normal sinus rhythm at a ventricular rate of 76 beats per minute, no ST elevation or depression. QT QTC 368/414. I reviewed the chest x-ray, no acute consolidations, I agree with the radiology report. Radiology Impression Discussion of test interpretation with radiology: I have reviewed the radiologist's reading. Radiologist Impression: FINDINGS: The lungs are well expanded. No focal infiltrate, effusion, edema, or pneumothorax. Cardiac and mediastinal silhouettes are within normal limits for technique. No acute bony abnormality seen XR/XR chest 2V IMPRESSION: No evidence of acute disease Dictated By: Ousmane Collins MD Chronic Conditions Patient?s care impacted by: Diabetes and Hypertension Discharge Plan Discharge Clinical Impression: Upper respiratory infection Patient Disposition: Home, Self-Care Instructions: Upper Respiratory Infection (ED) Additional Instructions: You tested negative for COVID, flu, RSV, and strep throat. Your EKG and chest x-ray were normal. Please drink plenty of fluids get plenty of rest. You likely have a virus that is causing you to have the symptoms, this will get better over the next several days. You may continue to alternate between ibuprofen and Tylenol as needed for symptoms. If any new or worsening symptoms occur including but not limited to chest pain, shortness of breath, weakness, numbness, severe dizziness, severe headaches, please return for re-evaluation Prescriptions: No Action atenolol 100 mg tablet 100 mg PO DAILY aspirin 81 mg tablet,delayed release (DR/EC) 81 mg PO DAILY acetaminophen 500 mg Tablet 500 mg PO Q6H PRN (Reason: Fever Or Pain) simvastatin 20 mg tablet 20 mg PO BEDTIME losartan 100 mg tablet 100 mg PO DAILY metformin 500 mg tablet extended release 24 hr 1,000 mg PO DAILY cefuroxime axetil 500 mg tablet 500 mg PO BID Qty: 12 0RF metronidazole 500 mg tablet 500 mg PO Q8H Qty: 18 0RF prednisone 20 mg tablet 20 mg PO DAILY 7 Days Qty: 7 0RF naproxen 500 mg tablet 500 mg PO BID 7 Days Qty: 14 0RF Print Language: Citizen Of [place]
[2024-01-30 11:06] LABS: IDNOW Serial# 08D9AD1C; Strep A Nucleic Acid Negative (Negative)
[2024-01-30 11:25] LABS: Influenza A PCR NEGATIVE (Negative); Influenza B PCR NEGATIVE (Negative); Resp Syncy Virus RNA Qual PCR NEGATIVE (Negative); SARS COV2 PCR INHOUSE NEGATIVE (Negative)
[2024-01-30 12:05] VITALS: BP 138/55; PULSE 72; RESP 14; TEMP 36.8; O2SAT 95
== END 2024-01-30 12:06 | disposition home or self-care (01) ==
PROVIDERS: Emergency Provider Emergency Medicine; PCP Internal Medicine
DX: J06.9 Acute upper respiratory infection, unspecified (principal); J02.9 Acute pharyngitis, unspecified; R07.9 Chest pain, unspecified; Z03.818 Encounter for observation for suspected exposure to other biological agents ruled out; R05.9 Cough, unspecified
CPT/HCPCS: 0241U; 71046; 87651; 93005; 99283

== ENCOUNTER → 2024-01-30 10:18 | Outpatient (BNV) | payer MEDICARE, SELFPAY | PROVIDERS: Emergency Provider Emergency Medicine; PCP Internal Medicine; Visit Provider Internal Medicine | DX: R07.9 Chest pain, unspecified (principal) | CPT/HCPCS: 93010 ==

== ENCOUNTER 2024-03-22 12:34 | Outpatient (REF) | payer MEDICARE, SELFPAY ==
[2024-03-22 13:56] LABS: MANUAL DIFF FLAG NO
[2024-03-22 14:27] LABS: Basophils Percent Auto 0.4 % (0-2); Eosinophils Absolute Auto 0.2 X10*3/uL (0.0-0.4); Hematocrit 39.9 % (42.0-52.0); Hemoglobin 13.5 g/dl (14.0-18.0); Imm Gran Abs Auto 0.02 X10*3/uL (0.00-0.03); Imm Gran Pct Auto 0.3 % (0.0-0.4); Lymphocytes Absolute Auto 2.2 X10*3/uL (1.2-4.9); Mean Corpuscular HGB Conc 33.8 g/dl (31.0-36.0); Mean Corpuscular Hemoglobin 31.2 pg (27.0-33.0); Mean Corpuscular Volume 92.1 fL (80.0-98.0); Mean Platelet Volume 10.4 fL (9.4-12.4); Monocytes Absolute Auto 0.5 X10*3/uL (0.1-1.2); Monocytes Percent Auto 7.5 % (2-11); Neutrophils Percent Auto 56.8 % (45-73); Platelet Count 186 X10*3/uL (160-400); Red Blood Count 4.33 X10*6/uL (4.60-5.80); Red Cell Distribution Width 13.1 % (11.0-16.0)
[2024-03-22 14:52] LABS: Anion Gap 14 (12-20); Blood Urea Nitrogen 29 mg/dL (9-16); Calcium 9.9 mg/dL (8.4-10.2); Carbon Dioxide 22 mmol/L (22-29); Chloride 110 mmol/L (96-108); Estimated Glomerular Filt Rate 45; Glucose Random 241 mg/dL (60-115); Potassium 4.5 mmol/L (3.3-5.1); Sodium 141 mmol/L (135-145); Uric Acid 5.9 mg/dL (3.4-7.0)
[2024-03-22 14:53] LABS: Alanine Aminotransferase 38 U/L (0-40); Albumin Level 4.2 g/dL (3.5-5.0); Alkaline Phosphatase 63 U/L (39-117); Aspartate Amino Transferase 23 U/L (5-37); Bilirubin Total 0.3 mg/dL (0.0-1.0); C Reactive Protein 0.13 mg/dL (< or = 0.50)
[2024-03-22 15:26] LABS: Erythrocyte Sedimentation Rate 38 MM/HR (0-15)
[2024-03-22 15:40] LABS: Appearance Urine Clear; Color Urine Yellow; Glucose Urine UA 100 mg/dL (Negative); Leukocyte Esterase Urine Negative (Negative); Nitrite Urine Negative (Negative); PH 5.5 (5.0-9.0); Specific Gravity - Urine 1.025 (1.005-1.025); UMIC TRIGGER UA YES; Urine Blood Negative (Negative); Urine Ketones Trace mg/dL (Negative); Urine Protein 100 (2+) mg/dL (Neg-Trace)
[2024-03-22 15:47] LABS: Bacteria Urine None Seen (None Seen); Hyaline Casts Urine 0-2 /LPF (0-2); RBC Urine 0-2 /HPF (0-2); Squamous Epithelial Cell Urine 0-2 /HPF (0-2); WBC Urine 0-5 /HPF (0-5)
[2024-03-22 15:50] LABS: Rheumatoid Factor < 13.0 IU/mL (<15.0)
[2024-03-22 16:48] LABS: Creatinine Urine 197.73 mg/dL; Protein/Creatinine Ratio, Ur 0.59 (<0.2); Total Protein Urine Random 117 mg/dL (<12)
[2024-03-23 05:12] LABS: HBc Num1 0.11 S/CO (0.00-0.79); HBsAGNum1 0.29 S/CO (0.00-0.99); Hepatitis A Antibody IgM 0.24 Index (0-0.79); Hepatitis B Core Antibody Nonreactive (Nonreactive); Hepatitis B Surface Antigen Negative (Negative); ~HepC Num1 0.14 S/CO (0.00-0.79); ~Hepatitis A Antibody IgM Nonreactive (Nonreactive); ~Hepatitis C Antibody Nonreactive (Nonreactive)
[2024-03-23 06:11] LABS: HBS Num2 8.71 mIU/mL (0-7.99); HBS Num3 8.29 mIU/mL (0-7.99); ~Hepatitis B Surface Antibody GRAYZONE (Nonreactive)
[2024-03-23 22:33] LABS: Anti DNA DS Antibody 1 IU/mL; Antibody to SS-A Antigen <1.0 NEG AI (<1.0 NEG); Antibody to SS-B Antigen <1.0 NEG AI (<1.0 NEG); SM/Ribonucleoprotein Ab <1.0 NEG AI (<1.0 NEG); Smith Protein <1.0 NEG AI (<1.0 NEG)
[2024-03-23 22:54] LABS: Complement C3 140 mg/dL (82-185)
[2024-03-24 19:39] LABS: HLA B27 Negative (Negative)
[2024-03-25 00:27] LABS: TS Negative Control Passed; TS Panel A 0; TS Panel B 0; TS Positive Control Passed; TSpotTB Negative (Negative)
[2024-03-25 14:54] LABS: Cyclic Citrullinated Peptide <16 UNITS
[2024-03-25 21:48] LABS: Prot Elec - Albumin 4.3 g/dL (3.8-4.8); Prot Elec - Alpha1 0.3 g/dL (0.2-0.3); Prot Elec - Alpha2 0.8 g/dL (0.5-0.9); Prot Elec - Beta 1 0.5 g/dL (0.4-0.6); Prot Elec - Beta 2 0.5 g/dL (0.2-0.5); Prot Elec - Gamma 1.5 g/dL (0.8-1.7); Prot Elec - Total Protein 7.7 g/dL (6.1-8.1)
[2024-03-31 16:24] LABS: IgA 259 mg/dL (70-320); IgG 1660 mg/dL (600-1540); IgM 61 mg/dL (50-300)
[2024-04-03 15:09] LABS: DNAds, Crithidia Antibody Negative (Negative)
== END 2024-03-22 12:35 | disposition home or self-care (01) ==
LOC: HO.LAB 12:34
PROVIDERS: PCP Internal Medicine; Visit Provider Student in an Organized Health Care Education/Training Program
DX: Z11.59 Encounter for screening for other viral diseases (principal); M32.9 Systemic lupus erythematosus, unspecified; Z11.7 Encounter for testing for latent tuberculosis infection; M25.50 Pain in unspecified joint; M10.9 Gout, unspecified; M45.9 Ankylosing spondylitis of unspecified sites in spine; M25.551 Pain in right hip; M25.552 Pain in left hip
CPT/HCPCS: 36415; 80053; 81001; 82570; 82784; 84156; 84165; 84550; 85025; 85652; 86140; 86160; 86200; 86225; 86235; 86255; 86334; 86431; 86481; 86704; 86706; 86709; 86803; 86812; 87340; 99202

== ENCOUNTER 2024-03-22 12:34 | Outpatient (AMB) | payer MEDICARE, SELFPAY ==
--- NOTE | 2024-03-22 12:37 | A.OFFVIS_ITS ---
Vital Signs 03/22/24 12:54 Height 5 ft 3 in Weight 202 lb 6.15 oz BMI 35.8 BP 134/80 Blood Pressure Location Rt brachial Position Sitting Pulse 71 Pulse Source Pulse Oximeter Pulse Oximetry (%) 96 Oxygen Delivery Method Room Air Intake Visit Reasons: Joint Pain/+MINDY/CM Intake Note: Patient presents for joint pain/+MINDY. Feel pain all over and especially my right arm. Since August feeling intense pain. Feels better when taking Meloxicam 15mg 1 tablet every other day. Allergies No Known Allergies Allergy (Verified 03/22/24 12:45) Medication List - Last Reconciled 03/22/24 by Tania Aguilar MD acetaminophen 500 mg PO Q6H PRN atenolol 100 mg PO DAILY losartan 100 mg PO DAILY metformin ER 1,000 mg PO DAILY simvastatin 20 mg PO BEDTIME HPI Comments Details: This is a 73-year-old male who presents for evaluation of positive MINDY. Patient stated that he had a mechanical fall in August of 2023 at home. Fell down the floor, since then he has having diffuse joint pains. He was evaluated by his PCP and started on meloxicam. He has been taking meloxicam 15 mg p.o. every other day with significant improvement. States that when he stops taking meloxicam for 3 days he starts to have pain, achiness and stiffness of his ankles and feet. He does not believe he has any significant joint swelling. Denies any skin rashes, unintentional fevers or weight loss. Denies any history of DVT/PE. He is unaware of any family history of an autoimmune rheumatic disease. Denies any history suggestive of psoriasis [facility] Medical History Hypertension Diabetes Diabetes mellitus, type 2 Hypercholesteremia Hypertension Family History Mother Arthritis Father Diabetes History of heart attack Social History Household Members: None Housing: Apartment Do you presently have visiting nurse or other home services: No Alcohol intake: current Alcohol intake frequency: 0-2 drinks per day Patient Tobacco Use Status: Former Tobacco user Tobacco use type: Cigarette e-Cigarette/Vaping Use: Never Used service: No Current occupational status: retired Review of Systems Const Denies fever(s), Reports weight gain and Denies weight loss Eyes Reports itchy eyes ENT Reports tinnitus Resp Reports cough GI Reports heartburn Musc Reports arthralgias and Reports joint swelling Skin/Breast Denies rash Aller/Immun Reports itchy eyes Physical Exam Vital Signs: Last Vital Signs Pulse 71 03/22/24 12:54 BP 134/80 03/22/24 12:54 Pulse Ox 96 03/22/24 12:54 Oxygen Delivery Method Room Air 03/22/24 12:54 BMI result Body Mass Index 35.8 Const General: cooperative, healthy appearing and comfortable Nutritional Appearance: obese morbidly obese Orientation/consciousness: patient oriented x3 Limitations: no limitations HEENT Head: Yes normocephalic and Yes atraumatic Mouth: moist mucous membranes Resp Effort & Inspection: normal respiratory effort and able to speak in complete sentences Skin General skin exam: no rashes or lesions noted Neuro General: patient oriented x3 Extrem Other: No active synovitis both hands and wrists Normal range of motion of elbows without pain Limited right shoulder abduction No knee pain with flexion-extension bilaterally Mild right ankle tenderness without swelling Negative MTP squeeze test Left foot bunion nontender Normal nailfold capillaroscopy Assessment & Plan Assessment & Plan (1) MINDY positive: Code(s): R76.8 - Other specified abnormal immunological findings in serum Category: Medical Plan: This is a 73-year-old male who presents for evaluation of a positive MINDY in the context of diffuse pain. I will order comprehensive serology to screen for underlying autoimmune rheumatic disease. Follow-up in 6-8 weeks Plan I spent 48 minutes reviewing patient's chart, evaluating patient, ordering diagnostic workup, counseling patient and documenting in the chart Orders: Orders Anti Extractable Nuclear Ag Today M32.9 - Systemic lupus erythematosus, unspecified Anti DNA DS Antibody Today M32.9 - Systemic lupus erythematosus, unspecified Complement C3 Today M32.9 - Systemic lupus erythematosus, unspecified Complement C4 Today M32.9 - Systemic lupus erythematosus, unspecified C Reactive Protein Today M32.9 - Systemic lupus erythematosus, unspecified DNA Double Stranded-Crithidia Today M32.9 - Systemic lupus erythematosus, unspecified Erythrocyte Sedimentation Rate Today M32.9 - Systemic lupus erythematosus, unspecified UA w Microscopic Today M32.9 - Systemic lupus erythematosus, unspecified Cyclic Citrullinated Peptide Today M25.50 - Pain in unspecified joint Protein Electrophoresis, Serum Today M32.9 - Systemic lupus erythematosus, unspecified Protein Creatinine Ratio, Ur Today M32.9 - Systemic lupus erythematosus, unspecified Sjogren's Antibodies Today M32.9 - Systemic lupus erythematosus, unspecified Complete Blood Count Auto Diff Today M32.9 - Systemic lupus erythematosus, unspecified Comprehensive Met. Panel Today M32.9 - Systemic lupus erythematosus, unspecified Hepatitis A,B,C Profile Today Z11.59 - Encounter for screening for other viral diseases Immunofixation Pnl, Serum Today M32.9 - Systemic lupus erythematosus, unspecified T Spot TB Today Z11.7 - Encounter for testing for latent tuberculosis infection Uric Acid Today M10.9 - Gout, unspecified HLA B27 Today M45.9 - Ankylosing spondylitis of unspecified sites in spine Medications: Discontinued metronidazole Discontinued Reason: Doctor's Order 500 mg PO Q8H 18 tabs 0RF K57.92 - Diverticulitis of intestine, part unspecified, without perforation or abscess without bleeding prednisone Discontinued Reason: Doctor's Order 20 mg PO DAILY 7 days 7 tabs 0RF cefuroxime axetil Discontinued Reason: Patient Completed Course 500 mg PO BID 12 tabs 0RF K57.92 - Diverticulitis of intestine, part unspecified, without perforation or abscess without bleeding naproxen Discontinued Reason: Patient no longer taking 500 mg PO BID 7 days 14 tabs 0RF Coding Level of Care Code New Pt Level 4 (34590) Diagnoses MINDY positive R76.8
[2024-03-22 12:54] VITALS: BP 134/80; PULSE 71; O2SAT 96; BMI 35.8
== END 2024-03-22 13:14 | disposition home or self-care (01) ==
PROVIDERS: PCP Internal Medicine; Visit Provider Student in an Organized Health Care Education/Training Program
DX: R76.8 Other specified abnormal immunological findings in serum (principal)
CPT/HCPCS: 99204

== ENCOUNTER 2024-05-24 10:12 | Outpatient (AMB) | payer MEDICARE, SELFPAY ==
--- NOTE | 2024-05-24 10:18 | MHC.OFFVIS ---
Vital Signs 05/24/24 10:23 Height 5 ft 3 in Weight 200 lb 13.458 oz BMI 35.6 BP 138/80 Blood Pressure Location Rt brachial Position Sitting Pulse 69 Pulse Source Pulse Oximeter Pulse Oximetry (%) 97 Oxygen Delivery Method Room Air Intake Visit Reasons: +MINDY/cm Intake Note: Patient presents for +MINDY. Allergies No Known Allergies Allergy (Verified 05/24/24 10:22) Medication List - Last Reconciled 05/24/24 by Tania Aguilar MD acetaminophen 500 mg PO Q6H PRN atenolol 100 mg PO DAILY losartan 100 mg PO DAILY metformin ER 1,000 mg PO DAILY simvastatin 20 mg PO BEDTIME HPI Comments Details: Patient returns for follow-up after completion of his diagnostic workup. He states that he has been having some right shoulder pain and limitation of range of motion. Initial history: This is a 73-year-old male who presents for evaluation of positive MINDY. Patient stated that he had a mechanical fall in August of 2023 at home. Fell down the floor, since then he has having diffuse joint pains. He was evaluated by his PCP and started on meloxicam. He has been taking meloxicam 15 mg p.o. every other day with significant improvement. States that when he stops taking meloxicam for 3 days he starts to have pain, achiness and stiffness of his ankles and feet. He does not believe he has any significant joint swelling. Denies any skin rashes, unintentional fevers or weight loss. Denies any history of DVT/PE. He is unaware of any family history of an autoimmune rheumatic disease. Denies any history suggestive of psoriasis [facility] Medical History Hypertension Diabetes Diabetes mellitus, type 2 Hypercholesteremia Hypertension Family History Mother Arthritis Father Diabetes History of heart attack Social History Household Members: None Housing: Apartment Do you presently have visiting nurse or other home services: No Alcohol intake: current Alcohol intake frequency: 0-2 drinks per day Patient Tobacco Use Status: Former Tobacco user Tobacco use type: Cigarette e-Cigarette/Vaping Use: Never Used service: No Current occupational status: retired Review of Systems [facility] Reports arthralgias and Reports limited range of motion Physical Exam Vital Signs: Last Vital Signs Pulse 69 05/24/24 10:23 BP 138/80 05/24/24 10:23 Pulse Ox 97 05/24/24 10:23 Oxygen Delivery Method Room Air 05/24/24 10:23 BMI result Body Mass Index 35.6 Const General: cooperative, healthy appearing and comfortable Nutritional Appearance: obese morbidly obese Orientation/consciousness: patient oriented x3 Limitations: no limitations HEENT Head: Yes normocephalic and Yes atraumatic Mouth: moist mucous membranes Resp Effort & Inspection: normal respiratory effort and able to speak in complete sentences Skin General skin exam: no rashes or lesions noted Neuro General: patient oriented x3 Extrem Other: No active synovitis both hands and wrists Normal range of motion of elbows without pain Limited right shoulder abduction Positive empty can test on the right Negative Speed's test bilaterally Negative empty can test on the left Assessment & Plan Assessment & Plan (1) MINDY positive: Code(s): R76.8 - Other specified abnormal immunological findings in serum Category: Medical Plan: This is a 73-year-old male who presents for evaluation of a positive MINDY in the context of diffuse joint pain. Comprehensive serology for underlying autoimmune rheumatic disease is negative. Clinical picture rather consistent with generalized osteoarthritis. Positive MINDY can be seen in about 20% of the population was no underlying autoimmune rheumatic disease. Significance of his positive MINDY is unclear. There was a bump in creatinine on his most recent set of labs. Patient discontinued meloxicam. Follow-up with PCP (2) Right rotator cuff tendinitis: Code(s): M75.81 - Other shoulder lesions, right shoulder Category: Medical Plan: Patient declined PT referral. He will do some exercises at home Plan I spent 20 minutes reviewing patient's chart, evaluating patient, counseling patient and documenting in the chart Coding Level of Care Code Est Pt Level 3 (20423) Diagnoses MINDY positive R76.8 Right rotator cuff tendinitis M75.81
[2024-05-24 10:23] VITALS: BP 138/80; PULSE 69; O2SAT 97; BMI 35.6
== END 2024-05-24 10:38 | disposition home or self-care (01) ==
LOC: HO.RHE 10:12
PROVIDERS: PCP Internal Medicine; Visit Provider Student in an Organized Health Care Education/Training Program
DX: R76.8 Other specified abnormal immunological findings in serum (principal); M75.81 Other shoulder lesions, right shoulder
CPT/HCPCS: 99213

== ENCOUNTER → 2024-05-24 10:12 | Outpatient (BNVA) | payer MEDICARE, SELFPAY | PROVIDERS: PCP Internal Medicine; Visit Provider Student in an Organized Health Care Education/Training Program | DX: M75.81 Other shoulder lesions, right shoulder (principal); R76.8 Other specified abnormal immunological findings in serum; Z91.81 History of falling | CPT/HCPCS: 99212 ==

== ENCOUNTER 2024-08-25 10:04 | Outpatient (REF) | payer MEDICARE, SELFPAY ==
[2024-08-25 11:12] LABS: MANUAL DIFF FLAG NO
[2024-08-25 11:19] LABS: Basophils Percent Auto 0.4 % (0-2); Eosinophils Absolute Auto 0.2 X10*3/uL (0.0-0.4); Eosinophils Percent Auto 2.7 % (0-4); Hematocrit 43.6 % (42.0-52.0); Imm Gran Abs Auto 0.03 X10*3/uL (0.00-0.03); Imm Gran Pct Auto 0.4 % (0.0-0.4); Lymphocytes Absolute Auto 2.6 X10*3/uL (1.2-4.9); Lymphocytes Percent Auto 32.1 % (20-40); Mean Corpuscular HGB Conc 34.4 g/dl (31.0-36.0); Mean Corpuscular Hemoglobin 31.1 pg (27.0-33.0); Mean Corpuscular Volume 90.5 fL (80.0-98.0); Mean Platelet Volume 10.6 fL (9.4-12.4); Monocytes Absolute Auto 0.7 X10*3/uL (0.1-1.2); Monocytes Percent Auto 8.7 % (2-11); Neutrophils Absolute Auto 4.5 x10*3/uL (2.0-8.3); Neutrophils Percent Auto 55.7 % (45-73); Platelet Count 211 X10*3/uL (160-400); Red Blood Count 4.82 X10*6/uL (4.60-5.80); Red Cell Distribution Width 12.9 % (11.0-16.0); White Blood Count 8.1 X10*3/uL (4.8-10.8)
[2024-08-25 11:45] LABS: Iron 106 mcg/dL (45-160); Percent Iron Saturation 39 % (15-50); Total Iron Binding Capacity 275 mcg/dL (228-428); Unsaturated Iron Binding 169 ug/dL
[2024-08-25 11:55] LABS: Ferritin 262 ng/mL (20-250)
[2024-08-25 12:07] LABS: Folate 14.5 ng/mL (> or = 4.0); Vitamin B12 380 pg/mL (200-900)
[2024-08-25 12:51] LABS: Creatinine Urine 284.76 mg/dL
--- OUTSIDE RECORDS SUMMARY | 2024-08-25 13:17 | XMS_ITS | Encounter Summary ---
Author Organization [employer] Address [address] [place] [address] Care Team Providers Care Pacu Rn Name Role Phone Jr Osborn MD Primary Care Provide r Reason for Visit * Reason Onset Date Comments Med Refill 11/30/2023 Encounter Details Date Type Department Care Team ([facility] st Contact Info) Description 11/30/2023 Telephone [facility] [address] [place], [place] [phone] Jr Osborn MD [address] [place], [place] [phone] Med Refill Social History Tobacco Use Types Packs/Day Years Used Date Smoking Tobacco: Never Passive Smoke Exposure: Never Smokeless Tobacco: Never Depression Answer Date Recorded Patient Health Questionnaire-9 Score 0 08/25/2023 Patient Health Questionnaire-9 Score 0 08/25/2023 Last PHQ-9: Questionnaire Data Not on file 0 08/25/2023 Housing Stability Answer Date Recorded What is your housing situation today? I have sofia delgadillo 05/19/[address] you li ve. Do you have problems with any of the following? None of the above 05/19/2023 Food Insecurity Answer Date Recorded Within the past 12 months, y ou worried that your food would run out before you got money to buy more: Never True 05/19/2023 Within the past 12 months,th e food you bought just didn't last and you didn't have enough money to get more: Never True Transportation Answer Date Recorded In the past 12 months, has l ack of transportation kept you from medical appts, meetings, work or from getting things needed for daily living? No 05/19/2023 Utilities Answer Date Recorded In the past 12 months, has t he electric, gas, oil or water company threatened to shut off services in your home? No 05/19/2023 Depression Answer Date Recorded Patient Health Questionnaire-2 Score 0 08/25/2023 Sex and Gender Information Value Date Recorded Sex Assigned at Male 05/26/2022 10:19 AM EDT Legal Sex Male 10:19 AM EDT Gender Identity Male 05/26/2022 10:19 AM EDT Sexual Orientation Choose not to disclose 2021 10:19 AM EDT documented as of this encounter Miscellaneous Notes * Telephone Encounter - Socorro De La Vega LPN - 11/30/2023 10:00 AM EDT Medication pended to PCP. * Telephone Encounter - Rebecca Khanna - 11/30/2023 9:58 AM EDT TC from pt requesting medication refill. Medications needing refill : meloxicam (Mobic) 15 MG tablet To be sent to: [id number] documented in this encounter Plan of Treatment Not on file documented as of this encounter Visit Diagnoses Not on filedocumented in this encounter Additional Health Concerns Assessment Noted Time PHQ-9 Depression Total Score: 0 08/25/19 24 10:55 AM EST documented as of this encounter Care Teams Pacu Rn Relationship Specialty Start Date End Date Jr Osborn MD [address] [place] [id number] PCP - General Internal Medicine 04/24/14 documented as of this encounter
--- OUTSIDE RECORDS SUMMARY | 2024-08-25 13:17 | XMS_ITS | Encounter Summary ---
Author Organization [employer] Address [address] [place] [address] Care Team Providers Care Archery Equipment Hay Sorter Name Role Phone Jr Osborn MD Primary Care Provide r Encounter Details Date Type Department Care Team (Latest Contact Info) Description 07/28/2024 Travel Social History Tobacco Use Types Packs/Day Years Used Date Smoking Tobacco: Never Passive Smoke Exposure: Never Smokeless Tobacco: Never Depression Answer Date Recorded Patient Health Questionnaire-9 Score 0 08/25/2023 Patient Health Questionnaire-9 Score 0 08/25/2023 Last PHQ-9: Questionnaire Data Not on file 0 08/25/2023 Housing Stability Answer Date Recorded What is your housing situation today? I have osfia delgadillo 04/28/[address] you li ve. Do you have problems with any of the following? None of the above 04/28/2024 Food Insecurity Answer Date Recorded Within the past 12 months, y ou worried that your food would run out before you got money to buy more: Never True 04/28/2024 Within the past 12 months,th e food you bought just didn't last and you didn't have enough money to get more: Never True 09/2023 Transportation Answer Date Recorded In the past 12 months, has l ack of transportation kept you from medical appts, meetings, work or from getting things needed for daily living? No 04/28/2024 Utilities Answer Date Recorded In the past 12 months, has t he electric, gas, oil or water company threatened to shut off services in your home? No 04/28/2024 Depression Answer Date Recorded Patient Health Questionnaire-2 Score 0 08/25/2023 Internet Access Answer Date Recorded Internet Access Q1 I am not sure 04/28/2024 Internet Access Q2 Not on file 04/28/2024 Sex and Gender Information Value Date Recorded Sex Assigned at Male 05/26/2022 10:19 AM EDT Legal Sex Male 10:19 AM EDT Gender Identity Male 05/26/2022 10:19 AM EDT Sexual Orientation Choose not to disclose 2021 10:19 AM EDT documented as of this encounter Plan of Treatment Not on file documented as of this encounter Visit Diagnoses Not on filedocumented in this encounter Additional Health Concerns Assessment Noted Time PHQ-9 Depression Total Score: 0 08/25/19 24 10:55 AM EST documented as of this encounter Care Teams Archery Equipment Hay Sorter Relationship Specialty Start Date End Date Jr Osborn MD [address] [place] [address] PCP - General Internal Medicine 04/24/14 documented as of this encounter
--- OUTSIDE RECORDS SUMMARY | 2024-08-25 13:17 | XMS_ITS | Encounter Summary ---
Author Organization [employer] Address [address] [place] [address] Care Team Providers Care Radio Operator Ground Name Role Phone Jr Osborn MD Primary Care Provide r Encounter Details Date Type Department Care Team ([facility] st Contact Info) Description 08/25/2024 9:15 AM EST Office Visit [facility] [address] [place], [place] [phone] Jr Osborn MD [address] [place], [place] [phone] Type 2 diabetes 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, with long-term current use of insulin ([facility]) (Primary Dx); Obesity, morbid (CMS/[facility]); Dietary counseling; Exercise counseling Social History Tobacco Use Types Packs/Day Years Used Date Smoking Tobacco: Former Cigarettes Q uit: 02/24/2011 Passive Smoke Exposure: Past Smokeless Tobacco: Never Tobacco Cessation:Counseling Given: Not Answered Depression Answer Date Recorded Patient Health Questionnaire-9 Score 0 08/25/2023 Patient Health Questionnaire-9 Score 0 08/25/2023 Last PHQ-9: Questionnaire Data Not on file 0 08/25/2023 Housing Stability Answer Date Recorded What is your housing situation today? I have sofia delgadillo 04/28/[address] you [...] AM EDT documented as of this encounter Last Filed Vital Signs Vital Sign Reading Time Taken Comments Blood Pressure 138/88 08/25/2024 9:23 AM EST Pulse 90 08/25/2024 9:11 AM EST Temperature 36 ??C (96.8 ??F) 08/25/2024 9:11 AM EST Respiratory Rate 20 08/25/2024 9:11 AM EST Oxygen Saturation 97% 08/25/2024 9:11 AM EST Inhaled Oxygen Concentration - - Weight 89.1 kg (196 lb 6.4 oz) 08/25/2024 9:11 A M EST Height 157.5 cm (5' 2 ) 08/25/2024 9:11 AM EST Body Mass Index 35.92 08/25/2024 9:11 AM EST documented in this encounter Progress Notes * Jr Rosen MD - 08/25/2024 9:15 AM EST SUBJECTIVE Christopher Rodriguez is a 74 y.o. male who presents for No chief complaint on file.. Diabetes He presents for his follow-up diabetic visit. He has type 2 diabetes mellitus. Pertinent negatives for hypoglycemia include no headaches. Pertinent negatives for diabetes include no chest pain. Review of Systems Constitutional: Negative for fever. HENT: Negative for sore throat. Respiratory: Negative for cough and shortness of breath. Cardiovascular: Negative for chest pain. Gastrointestinal: Negative for abdominal pain. Neurological: Negative for headaches. Allergies Allergen Reactions Neo Inhibitors Cough Tramadol Nausea Only Other reaction(s): Vomiting OBJECTIVE Vitals: 08/25/24 0911 08/25/24 0923 BP: (!) 141/102 138/88 BP Location: Left arm Left arm Patient Position: Sitting Sitting BP Cuff Size: Adult Pulse: 90 Resp: 20 Temp: 96.8 ??F (36 ??C) TempSrc: Temporal SpO2: 97% Weight: 196 lb 6.4 oz (89.1 kg) Height: 5' 2 (1.575 m) Physical Exam Vitals reviewed. Constitutional: Appearance: Normal appearance. HENT: Head: Normocephalic and atraumatic. Right Ear: External ear normal. Left Ear: External ear normal. Nose: Nose normal. Mouth/Throat: Mouth: Mucous membranes are moist. Eyes: Conjunctiva/sclera: Conjunctivae normal. Cardiovascular: Rate and Rhythm: Normal rate and regular rhythm. Pulmonary: Effort: Pulmonary effort is normal. Breath sounds: Normal breath sounds. Skin: General: Skin is warm. Neurological: Mental Status: He is alert. Mental status is at baseline. Assessment/Plan Problem List Items Addressed This Visit Type 2 diabetes mellitus with renal complication (CMS/HCC) - Primary Pt is here for a f/u regarding his DM He is on a regimen of Metformin XR 500 mg po 2 tabs in AM and Trulicity 0.75 once a week. Hgb A1c 07/28/2023 : 9.9 from 10.2 Eye exam : last on record 06/17/2019 wnl. Microalbumin checked on: 10/21/2021 was: 17.3 Pt on an ARB. Foot check risk of zero Pt reports compliance with Asa 81 mg po daily Pt denies any hx of thyroid cancer in family or self, no Hx of pancreatitis Plan: Continue current regimen 3 months f/u Pt advised to: adhere to diabetic diet check your blood sugars regularly check your feet on a daily basis. Relevant Orders POCT Glucose (Completed) Obesity, morbid (CMS/HCC) Patient has been counseled and educated about diet and exercise. Personal goal of weight loss discussedPatient has comorbidity of: DM Other Visit Diagnoses Dietary counseling Exercise counseling documented in this encounter Miscellaneous Notes * Assessment & Plan Note - Jr Rosen MD - 08/25/2024 9:25 AM EST Associated Problem(s): Obesity, morbid (CMS/HCC) Patient has been counseled and educated about diet and exercise. Personal goal of weight loss discussedPatient has comorbidity of: DM * Assessment & Plan Note - Jr Rosen MD - 08/25/2024 9:24 AM EST Associated Problem(s): Type 2 diabetes mellitus with renal complication (CMS/HCC) Pt is here for a f/u regarding his DM He is on a regimen of Metformin XR 500 mg po 2 tabs in AM and Trulicity 0.75 once a week. Hgb A1c 07/28/2023 : 9.9 from 10.2 Eye exam : last on record 06/17/2019 wnl. Microalbumin checked on: 10/21/2021 was: 17.3 Pt on an ARB. Foot check risk of zero Pt reports compliance with Asa 81 mg po daily Pt denies any hx of thyroid cancer in family or self, no Hx of pancreatitis Plan: Continue current regimen 3 months f/u Pt advised to: adhere to diabetic diet check your blood sugars regularly check your feet on a daily basis. documented in this encounter Plan of Treatment Not on file documented as of this encounter Procedures Procedure Name Priority Date/Time Associated Diagnosis Comments POCT GLUCOSE Routine 08/25/2024 9:19 AM EST Type 2 diabetes 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, with long-term current use of insulin ([facility]) documented in this encounter Results * (ABNORMAL) POCT Glucose (08/25/2024 9:19 AM EST) Glucose Blood, POC 140(A) 60 - 200 mg/dL QC Media Lot # [id number] Lot# Expiration Date ,837,866 Blood Capillary blood specimen / Unknown 08/25/2024 9:19 AM EST Jr Rosen MD POINT OF CARE TEST EN TER/EDIT ORDERABLES Final Result documented in this encounter Visit Diagnoses Diagnosis Type 2 diabetes 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, with long-term current use of insulin ([facility])- Primary Obesity, morbid ([facility]) Morbid obesity Dietary counseling Dietary surveillance and counseling Exercise counseling documented in this encounter Additional Health Concerns Assessment Noted Time PHQ-9 Depression Total Score: 0 08/25/19 10:55 AM EST documented as of this encounter Care Teams Radio Operator Ground Relationship Specialty Start Date End Date Jr Osborn MD [address] [place] [address] PCP - General Internal Medicine 04/24/14 documented as of this encounter
--- OUTSIDE RECORDS SUMMARY | 2024-08-25 13:17 | XMS_ITS | Clinical Summary ---
Author Organization [facility] Address [address] [place] [id number] Care Team Providers Care Elevator Pilot Name Role Phone Jr Monzon MD Primary Care Provider Unav ailable Allergies Active Allergy Reactions Criticality Noted Date Comments Neo Inhibitors Other (see comments) Medium 08/22/2010 Tramadol Nausea Low 12/21/2018 Other reaction(s): Vomiting Medications simvastatin (ZOCOR) 20 MG tablet 10/15/2021 Active metFORMIN XR (GLUCOPHAGE-XR) 500 MG 24 hr tablet Take 1,000 mg by mouth Take 2 09/23/2021 Active losartan (COZAAR) 100 MG tablet Take 100 mg by mouth 1 (one) time each day 09/23/2021 Active atenolol (TENORMIN) 100 MG tablet Take 100 mg by mouth 1 (one) time each day 09/30/2021 Active Aspirin Low Dose 81 MG EC tablet Take 81 mg by mouth 1 (one) time each day 09/30/2021 Active Empagliflozin (Jardiance) 10 MG tablet Take 10 mg by mouth 1 (one) time each day 90 tablet 2 01/30/2022 Active Active Problems Problem Noted Date Diagnosed Date Personal history of kidney stones 10/27/2022 Type 2 diabetes mellitus wit h diabetic chronic kidney disease 10/27/2022 Acute thoracic back pain 07/17/2022 Adhesive capsulitis of left shoulder 07/17/2022 Overview (10/27/2022): Last Assessment & Plan: Pt reports an injury to left shoulder after he fell out of bed did not seek medical attention. On exam there was marked decreased ROM, no deformity ? adhesive capsulitis ? Plain films 01/08/2017 Normal. Pt was referred to PT but pt did not want to go. Pt was seen by Ortho who did an MRI that showed adhesive capsulitis Diverticulosis of colon 07/17/2022 Overview (10/27/2022): Last Assessment & Plan: Pt seen in the ER 12/03/2018 with c/o abdominal pain. Ct showed mild diverticulitis pt was treated with Cipro and Flagyl currently asymptomatic. Last Colonoscopy [address] Iraheta He developed a reaction to tramadol Right flank pain 07/17/2022 Overview (10/27/2022): Last Assessment & Plan: Pt here with c/o acute onset of right sided back and flank pain for several days, patient denies any injury, no recent fall, He does have a Hx of nephrolithiasis and is questioning if he has one. On exam pt is tender to palpation right sided thoracic back and flank pain, suggestive of spasm. U/A was negative for blood Plan: I recommended NSAIDS and Muscle relaxants. Pt declined use of NSAIDS and agreed to try the muscle relaxant. Will obtain plain films of his thoraci spine and rib cage Will also obtain a CT of his Abdomen and Pelvis to r/o a kidney stone. 1 month f/u Rib pain 07/17/2022 Patient encounter status 07/17/2022 Overview (10/27/2022): Last Assessment & Plan: BECCA: Normal 03/06/2015, PSA 01/17/2022 Colonoscopy: Dr. Iraheta 2015 Nephrolithiasis 07/17/2022 Overview (10/27/2022): Last Assessment & Plan: Used to be under the care of Dr. Frank, underwent Lithotripsy 01/09/2014 Currently not complaining. Type 2 diabetes mellitus without complication Essential (primary) hypertension 10/31/2021 Chronic kidney disease 10/31/2021 Hypercholesterolemia 10/31/2021 Stage 3a chronic kidney disease 10/31/2021 Alcoholism 06/14/2015 Dermatophytosis 01/08/2012 Tobacco dependence syndrome 01/08/2012 Hypertensive left ventricular hypertrophy 2011 Immunizations Name Administration Dates Next Due Influenza Split 03/29/2013,03/30/2012 Influenza Split High Dose Pr eservative Free IM 04/27/2018,04/08/2017,04/25/2016 Influenza, Unspecified 04/12/2020,04/18/2014 Moderna SARS-COV-2 10/23/2020,09/25/2020 Pneumococcal Conjugate 13-Valent 01/08/2017 Tdap 03/23/2012 Zoster 11/07/2014 Family History Medical History Relation Comments Diabetes Father Heart disease Father Cancer Mother Relation Status Comments Father Mother Social History Tobacco Use Types Packs/Day Years Used Date Smoking Tobacco: Never Assessed Alcohol Use Standard Drinks/Week Comments Never 0 (1 standard drink = 0.6 oz pur e alcohol) Sex and Gender Information Value Date Recorded Sex Assigned at Not on file Legal Sex Male 4:01 PM EDT Gender Identity Not on file Sexual Orientation Not on file Last Filed Vital Signs Vital Sign Reading Time Taken Comments Blood Pressure 145/85 10/27/2022 1:03 PM EDT Pulse 68 10/27/2022 1:03 PM EDT Temperature - - Respiratory Rate - - Oxygen Saturation 98% 10/27/2022 1:03 PM EDT Inhaled Oxygen Concentration - - Weight 89.4 kg (197 lb 3.2 oz) 10/27/2022 1:03 P M EDT Height - - Body Mass Index - - Plan of Treatment Health Maintenance Due Date Last Done Comments Colorectal Cancer Screening: Annual FOBT 1999 Colorectal Cancer Screening: Colonoscopy 1999 Colorectal Cancer Screening: Sigmoidoscopy 1999 Pneumococcal Vaccine: 65+ Years (2 of 2 - PPSV23 or PCV20) 03/05/2017 01/08/2017 Diabetes: Hemoglobin A1C 10/31/2021 Diabetes: Ophthalmology Exam 10/31/2021 Diabetes: Pedal Pulse Checked 10/31/2021 Diabetes: Sensory Foot Exam 10/31/2021 Diabetes: Visual Foot Exam 10/31/2021 Influenza Vaccine (#1) 2024 , 04/27/2018, 04/08/2017, Additional history exists Hepatitis B Vaccine Aged Out No longe r eligible based on patient's age to complete this topic Insurance Care Teams Elevator Pilot Relationship Specialty Start Date End Date Jr Monzon MD PCP - General Internal Medicine 10/28/21
--- OUTSIDE RECORDS SUMMARY | 2024-08-25 13:17 | XMS_ITS | Encounter Summary ---
Author Organization [employer] Address [address] [place] [address] Care Team Providers Care Kiln Car Repairer Name Role Phone Jr Osborn MD Primary Care Provide r Reason for Visit * Reason Onset Date Comments Med Refill 08/01/2024 Encounter Details Date Type Department Care Team ([facility] st Contact Info) Description 08/01/2024 Telephone [facility] [address] [place], [place] [phone] rJ Osborn MD [address] [place], [place] [phone] Med Refill Social History Tobacco Use Types [...] encounter Miscellaneous Notes * Telephone Encounter - Daniela Evangelista RN - 08/01/2024 1:19 PM EST Addressed in other encounter * Telephone Encounter - Cristine Mcdonald - 08/01/2024 10:40 AM EST Pt walked in requesting isolants that can get injected into stomach pt states that pcp offered these isolants but when pcp told him the sow he pt denied them. Now pt would like them due to sugar getting high. documented in this encounter Plan of Treatment Not on file documented as of this encounter Visit Diagnoses Not on filedocumented in this encounter Additional Health Concerns Assessment Noted Time PHQ-9 Depression Total Score: 0 08/25/19 24 10:55 AM EST documented as of this encounter Care Teams Kiln Car Repairer Relationship Specialty Start Date End Date Jr Osborn MD [address] [place] [id number] PCP - General Internal Medicine 04/24/14 documented as of this encounter
--- OUTSIDE RECORDS SUMMARY | 2024-08-25 13:17 | XMS_ITS | Encounter Summary ---
Author Organization [employer] Address [address] [place] [address] Care Team Providers Care Machine Applicator Cementer Name Role Phone Jr Osborn MD Primary Care Provide r Encounter Details Date Type Department Care Team (Late st Contact Info) Description 11/28/2022 Abstract [facility] [address] [place], [place] [phone] Jr Osborn MD [address] [place] [address] Social History Tobacco Use Types Packs/Day Years Used Date Smoking Tobacco: Never Assessed Sex and Gender Information Value Date Recorded Sex Assigned at Male 05/26/2022 10:19 AM EDT Legal Sex Male 10:19 AM EDT Gender Identity Male 05/26/2022 10:19 AM EDT Sexual Orientation Choose not to disclose 2021 10:19 AM EDT documented as of this encounter Plan of Treatment Not on file documented as of this encounter Procedures Procedure Name Priority Date/Time Associated Diagnosis Comments COLONOSCOPY Routine 12/12/2015 documented in this encounter Results * Colonoscopy (12/12/2015) Colonoscopy Normal Normal 12/12/2015 Cathy Monaco - 12/12/2015 11:20 AM EDT Recommended 10 year follow up ( see scanned notes ) us Historical Provider HEALTH MAINTENANCE Edited Result - Final documented in this encounter Visit Diagnoses Not on filedocumented in this encounter Care Teams Machine Applicator Cementer Relationship Specialty Start Date End Date Jr Osborn MD [address] [place] [id number] PCP - General Internal Medicine 04/24/14 documented as of this encounter
--- OUTSIDE RECORDS SUMMARY | 2024-08-25 13:17 | XMS_ITS | Encounter Summary ---
Author Organization [employer] Address [address] [place] [address] Care Team Providers Care Disease And Insect Control Boss Name Role Phone Jr Osborn MD Primary Care Provide r Reason for Visit * Reason Comments Diabetes Glucometer isn't wor ezio and doesn't have anymore glucose strips, pt hasn't been checking his glucose Encounter Details Date Type Department Care Team (Latest Contact Info) Description 07/28/2024 9:15 AM EST Office Visit [facility] [address], [place] [phone] Jr Osborn MD [address] [place], [place] [phone] Essential (primary) hypertension (Primary Dx); Type 2 diabetes 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, with long-term current use of insulin (CMS/HCC); Stage 3a chronic kidney disease (CMS/HCC); Positive MINDY (antinuclear antibody); Primary osteoarthritis involving multiple joints; Preventative health care; Hypercholesterolemia; Personal history of alcoholism (CMS/HCC); Anemia in other chronic diseases classified elsewhere Social History Tobacco Use Types Packs/Day Years [...] Sign Reading Time Taken Comments Blood Pressure 140/82 07/28/2024 9:31 AM EST Pulse 70 07/28/2024 9:05 AM EST Temperature 36.1 ??C (96.9 ??F) 07/28/2024 9:05 AM ES T Respiratory Rate 20 07/28/2024 9:05 AM EST Oxygen Saturation 98% 07/28/2024 9:05 AM EST Inhaled Oxygen Concentration - - Weight 90.4 kg (199 lb 3.2 oz) 07/28/2024 9:05 A M EST Height 157.5 cm (5' 2 ) 07/28/2024 9:05 AM EST Body Mass Index 36.43 07/28/2024 9:05 AM EST documented in this encounter Progress Notes * Jr Rosen MD - 07/28/2024 9:15 AM EST SUBJECTIVE Christopher Akhtar Michael is a 73 y.o. male who presents for Diabetes (Glucometer isn't working and doesn'thave anymore glucose strips, pt hasn't been checking his glucose). Diabetes He presents for his follow-up diabetic [...] Nausea Only Other reaction(s): Vomiting OBJECTIVE Vitals: 07/28/24 0905 07/28/24 0931 BP: (!) 154/91 140/82 BP Location: Left arm Left arm Patient Position: Sitting Sitting BP Cuff Size: Adult Pulse: 70 Resp: 20 Temp: 96.9 ??F (36.1 ??C) TempSrc: Temporal SpO2: 98% Weight: 199 lb 3.2 oz (90.4 kg) Height: 5' 2 (1.575 m) Physical [...] 500 mg po 2 tabs in AM Hgb A1c 07/28/2023 : 9.9 from 10.2 Eye exam : last on record 06/17/2019 wnl. Microalbumin checked on: 10/21/2021 was: 17.3 Pt on an ARB. Foot check risk of zero Pt reports compliance with Asa 81 mg po daily Pt denies any hx of thyroid cancer in family or self, no Hx of pancreatitis Plan: Start Trulicity 0.75 once a week. 2 months f/u Pt advised to: adhere to diabetic diet check your blood sugars regularly check your feet on a daily basis. Relevant Medications Dulaglutide (Trulicity) 0.75 MG/0.5ML solution auto-injector FREESTYLE LITE test strip TRUEplus Lancets 33G misc Alcohol Swabs 70 % pads Blood Glucose Monitoring Suppl (FreeStyle Excello Lite) w/Device kit Other Relevant Orders POCT Glucose (Completed) POCT HGB A1C (Completed) Essential (primary) hypertension - Primary Patient is here for a f/u I suspect there is an element of white coat hypertention He is already under the care of Senior Biostatistician/Group Leader Dr Kennedy He is on a regimen of: Atenolol 100 mg po daily , Cozaar 100 mg po daily and Norvasc 2.5 mg po daily Most recent electrolytes, Bun and Creatinine done on: Lab Results Component Value Date NA 141 03/22/2024 NA 139 09/29/2023 K 4.5 03/22/2024 K 4.0 09/29/2023 CL 110 (H) 03/22/2024 CL 109 (H) 09/29/2023 BUN 29 (H) 03/22/2024 BUN 22 (H) 09/29/2023 CREATININE 1.54 (H) 03/22/2024 CREATININE 1.38 09/29/2023 Showed elevated Scr. 1.54. Will repeat Plan: Continue current regimen, no changes for now patient advised to adhere to a low sodium diet, encouraged about medication compliance, counseled about weight loss. Stage 3a chronic kidney disease (CMS/HCC) Here for a follow up Remains under the care of Nephrology ( Dr Kennedy ) Last seen October 27, 2022 Plan: Avoid nephrotoxins, aim to better BP control Pt told me he will contact Dr. Kennedy for a follow up Positive MINDY (antinuclear antibody) Pt here for a follow up. Pt with c/o generalized joint pain, more significantly on his hips On previous exam, no redness sor swelling. Pt having difficulty walking as a result Initial work upincluded a Uric acid, CRP, within normal limits, ESR was elevated. Plain films hips, knees, shoulders showed: No significant bone, joint or soft tissue abnormality is seen in either shoulder. HIPS: Mild degenerative changes are present in the hips with supra-acetabular sclerosis and some minimal osteophytes. Findings appear slightly worse on the left than the right. No fractures or dislocations. The visualized portions of the pelvis appear unremarkable. KNEES: No significant bone, joint or soft tissue abnormality is seen in either knee. Patient's MINDY was positive He was referred to Rheumatology and was seen 03/22/2024. Seen by Tania Aguilar MD . Last seen: 05/24/2024 His impression was that Comprehensive serology for underlying autoimmune rheumatic disease was negative. . He thought clinical picture rather consistent with generalized osteoarthritis. He also notedthat positive MINDY can be seen in about 20% of the population was no underlying autoimmune rheumaticdisease. Significance of his positive MINDY is unclear. Primary osteoarthritis involving multiple joints Pt here for a follow up. Pt with c/o generalized joint pain, more significantly on his hips On previous exam, no redness sor swelling. Pt having difficulty walking as a result Initial work upincluded a Uric acid, CRP, within normal limits, ESR was elevated. Plain films hips, knees, shoulders showed: No significant bone, joint or soft tissue abnormality is seen in either shoulder. HIPS: Mild degenerative changes are present in the hips with supra-acetabular sclerosis and some minimal osteophytes. Findings appear slightly worse on the left than the right. No fractures or dislocations. The visualized portions of the pelvis appear unremarkable. KNEES: No significant bone, joint or soft tissue abnormality is seen in either knee. Patient's MINDY was positive He was referred to Rheumatology and was seen 03/22/2024. Seen by Tania Aguilar MD . Last seen: 05/24/2024 His impression was that Comprehensive serology for underlying autoimmune rheumatic disease was negative. . He thought clinical picture rather consistent with generalized osteoarthritis. He also notedthat positive MINDY can be seen in about 20% of the population was no underlying autoimmune rheumaticdisease. Significance of his positive MINDY is unclear. Preventative health care PSA 07/30/2023: 1.66 Normal Colonoscopy: 12/12/2015 Dr. hernandez Hypercholesterolemia Most recent lipid profile from: Lab Results Component Value Date TRIG 139 09/29/2023 TRIG 197 (H) 08/25/2023 CHOL 133 09/29/2023 CHOL 165 08/25/2023 LDLCHOLCAL 71 09/29/2023 LDLCHOLCAL 85 08/25/2023 HDL 35 (L) 09/29/2023 HDL 41 08/25/2023 Pt is on Zocor 20 mg po q hs. . For now will continue with current regimen advised to try to adhere to a low cholesterol diet, counseled and educated about diet and exercise,Patient encouraged to come up with a personal goal for weight loss. Personal history of alcoholism (CMS/HCC) Pt tells me he has not drank anything for years Anemia in other chronic diseases classified elsewhere Pt's most recent CBC showed mild anemia Plan: Obtain, Iron studies, B12, Folate Denies any Melena. Relevant Orders Albumin, Random Urine W/Creatinine CBC auto differential Vitamin B12/Folate, Serum Panel Iron And Total Iron Binding Capacity Ferritin documented in this encounter Miscellaneous Notes * Assessment & Plan Note - Jr Rosen MD - 07/28/2024 9:19 AM EST Associated Problem(s): Anemia in other chronic diseases classified elsewhere Pt's most recent CBC showed mild anemia Plan: Obtain, Iron studies, B12, Folate Denies any Melena. * Assessment & Plan Note - Jr Rosen MD - 07/28/2024 9:14 AM EST Associated Problem(s): Personal history of alcoholism (CMS/HCC) Pt tells me he has not drank anything for years * Assessment & Plan Note - Jr Rosen MD - 07/28/2024 9:14 AM EST Associated Problem(s): Hypercholesterolemia Most recent lipid profile from: Lab Results Component Value Date TRIG 139 09/29/2023 TRIG 197 (H) 08/25/2023 CHOL 133 09/29/2023 CHOL 165 08/25/2023 LDLCHOLCAL 71 09/29/2023 LDLCHOLCAL 85 08/25/2023 HDL 35 (L) 09/29/2023 HDL 41 08/25/2023 Pt is on Zocor 20 mg po q hs. . For now will continue with current regimen advised to try to adhere to a low cholesterol diet, counseled and educated about diet and exercise,Patient encouraged to come up with a personal goal for weight loss. * Assessment & Plan Note - Jr Rosen MD - 07/28/2024 9:13 AM EST Associated Problem(s): Preventative health care PSA 07/30/2023: 1.66 Normal Colonoscopy: 12/12/2015 Dr. hernandez * Assessment & Plan Note - Jr Rosen MD - 07/28/2024 9:12 AM EST Associated Problem(s): Primary osteoarthritis involving multiple joints Pt here for a follow up. Pt with c/o generalized joint pain, more significantly on his hips On previous exam, no redness sor swelling. Pt having difficulty walking as a result Initial work upincluded a Uric acid, CRP, within normal limits, ESR was elevated. Plain films hips, knees, shoulders showed: No significant bone, joint or soft tissue abnormality is seen in either shoulder. HIPS: Mild degenerative changes are present in the hips with supra-acetabular sclerosis and some minimal osteophytes. Findings appear slightly worse on the left than the right. No fractures or dislocations. The visualized portions of the pelvis appear unremarkable. KNEES: No significant bone, joint or soft tissue abnormality is seen in either knee. Patient's MINDY was positive He was referred to Rheumatology and was seen 03/22/2024. Seen by Tania Aguilar MD . Last seen: 05/24/2024 His impression was that Comprehensive serology for underlying autoimmune rheumatic disease was negative. . He thought clinical picture rather consistent with generalized osteoarthritis. He also notedthat positive MINDY can be seen in about 20% of the population was no underlying autoimmune rheumaticdisease. Significance of his positive MINDY is unclear. * Assessment & Plan Note - Jr Rosen MD - 07/28/2024 9:11 AM EST Associated Problem(s): Positive MINDY (antinuclear antibody) Pt here for a follow up. Pt with c/o generalized joint pain, more significantly on his hips On previous exam, no redness sor swelling. Pt having difficulty walking as a result Initial work upincluded a Uric acid, CRP, within normal limits, ESR was elevated. Plain films hips, knees, shoulders showed: No significant bone, joint or soft tissue abnormality is seen in either shoulder. HIPS: Mild degenerative changes are present in the hips with supra-acetabular sclerosis and some minimal osteophytes. Findings appear slightly worse on the left than the right. No fractures or dislocations. The visualized portions of the pelvis appear unremarkable. KNEES: No significant bone, joint or soft tissue abnormality is seen in either knee. Patient's MINDY was positive He was referred to Rheumatology and was seen 03/22/2024. Seen by Tania Aguilar MD . Last seen: 05/24/2024 His impression was that Comprehensive serology for underlying autoimmune rheumatic disease was negative. . He thought clinical picture rather consistent with generalized osteoarthritis. He also notedthat positive MINDY can be seen in about 20% of the population was no underlying autoimmune rheumaticdisease. Significance of his positive MINDY is unclear. * Assessment & Plan Note - Jr Rosen MD - 07/28/2024 9:09 AM EST Associated Problem(s): Stage 3a chronic kidney disease (CMS/HCC) Here for a follow up Remains under the care of Nephrology ( Dr Kennedy ) Last seen October 27, 2022 Plan: Avoid nephrotoxins, aim to better BP control Pt told me he will contact Dr. Kennedy for a follow up * Assessment & Plan Note - Jr Rosen MD - 07/28/2024 9:08 AM EST Associated Problem(s): Essential (primary) hypertension Patient is here for a f/u I suspect there is an element of white coat hypertention He is already under the care of Senior Biostatistician/Group Leader Dr Kennedy He is on a regimen of: Atenolol 100 mg po daily , Cozaar 100 mg po daily and Norvasc 2.5 mg po daily Most recent electrolytes, Bun and Creatinine done on: Lab Results Component Value Date NA 141 03/22/2024 NA 139 09/29/2023 K 4.5 03/22/2024 K 4.0 09/29/2023 CL 110 (H) 03/22/2024 CL 109 (H) 09/29/2023 BUN 29 (H) 03/22/2024 BUN 22 (H) 09/29/2023 CREATININE 1.54 (H) 03/22/2024 CREATININE 1.38 09/29/2023 Showed elevated Scr. 1.54. Will repeat Plan: Continue current regimen, no changes for now patient advised to adhere to a low sodium diet, encouraged about medication compliance, counseled about weight loss. * Assessment & Plan Note - Jr Rosen MD - 07/28/2024 9:07 AM EST Associated Problem(s): Type 2 diabetes mellitus with renal complication (CMS/HCC) Pt is here for a f/u regarding his DM He is on a regimen of Metformin XR 500 mg po 2 tabs in AM Hgb A1c 07/28/2023 : 9.9 from 10.2 Eye exam : last on record 06/17/2019 wnl. Microalbumin checked on: 10/21/2021 was: 17.3 Pt on an ARB. Foot check risk of zero Pt reports compliance with Asa 81 mg po daily Pt denies any hx of thyroid cancer in family or self, no Hx of pancreatitis Plan: Start Trulicity 0.75 once a week. 2 months f/u Pt advised to: adhere to diabetic diet check your blood sugars regularly check your feet on a daily basis. documented in this encounter Plan of Treatment Pending Results Name Type Priority Associated Diagnoses Date /Time Albumin, Random Urine W/Creatinine Lab Routine Anemia in other chronic diseases classified elsewhere 08/25/2024 10:10 AM EST documented as of this encounter Procedures Procedure Name Priority Date/Time Associated Diagnosis Comments VITAMIN B12/FOLATE, SERUM PANEL Routine 08/25/2024 10:10 AM EST Anemia in other chronic diseases classified elsewhere ALBUMIN, RANDOM URINE W/CREATININE Routine 08/25/2024 10:10 AM EST Anemia in other chronic diseases classified elsewhere CBC WITH AUTO DIFFERENTIAL Routine 08/25/2024 10:10 AM EST Anemia in other chronic diseases classified elsewhere IRON AND TOTAL IRON BINDING CAPACITY Routine 08/25/2024 10:10 AM EST Anemia in other chronic diseases classified elsewhere FERRITIN Routine 08/25/2024 10:10 AM EST Anemia in other chronic diseases classified elsewhere POCT GLYCATED HEMOGLOBIN, TOTAL Routine 07/28/2024 9:21 AM EST Type 2 diabetes 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, with long-term current use of insulin ([facility]) POCT GLUCOSE Routine 07/28/2024 9:17 AM EST Type 2 diabetes 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, with long-term current use of insulin ([facility]) documented in this encounter Results * (ABNORMAL) Ferritin (08/25/2024 10:10 AM EST) Ferritin 262(H) 20 - 250 ng/mL [facility] Blood Venous blood specimen / Unknown 08/25/2024 10:10 AM EST 08/25/2024 11:04 AM EST Jr Rosen MD LAB BLOOD ORDERABLES Final Result Performing Organization Address [facility]/ZIP Co de Phone Number [facility] [address] [place] [phone] * Iron And Total Iron Binding Capacity (08/25/2024 10:10 AM EST) Iron 106 45 - 160 mcg/dL [facility] Comment:Slight Hemolysis.Int erpret result with caution. Total Iron Binding Capacity 275 228 - 428 mcg/dL [facility] Percent Iron Saturation 39 15 - 50 % [facility] Unsaturated Iron Binding 169 ug/dL [facility] Blood Venous blood specimen / Unknown 08/25/2024 10:10 AM EST 08/25/2024 11:04 AM EST Jr Rosen MD LAB BLOOD ORDERABLES Final Result Performing Organization Address [facility] Co de Phone Number [facility] [address] [place] [phone] * Vitamin B12/Folate, Serum Panel (08/25/2024 10:10 AM EST) Vitamin B12 380 200 - 900 pg/mL [facility] Comment:NORMAL 200-900 PG/ML INDETERMINATE 160-199 PG/ML DEFICIENT < 160 PG/ML Folate 14.5 > or = 4.0 ng/mL [facility] Comment:Reference Values:> o r = 4.0 ng/mL< 4.0 ng/mL suggests folate deficiency Methotrexate, aminopterin and folinic acid(leucovorin) are chemotherapeutic agents whose molecularstructures are similar to folate; therefore, the Architectfolate assay cannot be used for patients using these drugs. Blood Venous blood specimen / Unknown 08/25/2024 10:10 AM EST 08/25/2024 11:04 AM EST us Jr Rosen MD LAB BLOOD ORDERABLES Final Result [facility] [address] [place] [phone] * CBC auto differential (08/25/2024 10:10 AM EST) White Blood Count 8.1 4.8 - 10.8 X10*3/uL [facility] Red Blood Count 4.82 4.60 - 5.80 X10*6/uL [facility] Hemoglobin 15.0 14.0 - 18.0 g/dl [facility] Hematocrit 43.6 42.0 - 52.0 % [facility] Mean Corpuscular Volume 90.5 80.0 - 98.0 fL [facility] Mean Corpuscular Hemoglobin 31.1 27.0 - 33.0 pg [facility] Mean Corpuscular HGB Conc 34.4 31.0 - 36.0 g/dl [facility] Red Cell Distribution Width 12.9 11.0 - 16.0 % [facility] Platelet Count 211 160 - 400 X10*3/uL [facility] Mean Platelet Volume 10.6 9.4 - 12.4 fL [facility] Neutrophils Percent Auto 55.7 45 - 73 % [facility] Imm Gran Pct Auto 0.4 0.0 - 0.4 % [facility] Lymphocytes Percent Auto 32.1 20 - 40 % [facility] Monocytes Percent Auto 8.7 2 - 11 % [facility] Eosinophils Percent Auto 2.7 0 - 4 % [facility] Basophils Percent Auto 0.4 0 - 2 % [facility] NRBC Pct Auto 0.0 0.0 - 0.2 /100WBC [facility] Neutrophils Absolute Auto 4.5 2.0 - 8.3 x10*3/uL [facility] Imm Gran Abs Auto 0.03 0.00 - 0.03 X10*3/uL [facility] Lymphocytes Absolute Auto 2.6 1.2 - 4.9 X10*3/uL [facility] Monocytes Absolute Auto 0.7 0.1 - 1.2 X10*3/uL [facility] Eosinophils Absolute Auto 0.2 0.0 - 0.4 X10*3/uL [facility] Basophils Absolute Auto 0.0 0.0 - 0.2 X10*3/uL [facility] NRBC Abs Auto 0.000 0.0 - 0.012 X10*3/uL [facility] Blood Venous blood specimen / Unknown 08/25/2024 10:10 AM EST 08/25/2024 11:04 AM EST us Jr Rosen MD LAB BLOOD ORDERABLES Final Result Performing Organization Address City/State/[facility] Co de Phone Number [facility] [address] [place] [phone] * (ABNORMAL) POCT HGB A1C (07/28/2024 9:21 AM EST) Hemoglobin A1C 9.9(A) 4.0 - 6.0 % QC Media Lot # [id number] Lot# Expiration Date , Blood 07/28/2024 9:21 AM EST us Jr Rosen MD POINT OF CARE TEST EN TER/EDIT ORDERABLES Final Result * (ABNORMAL) POCT Glucose (07/28/2024 9:17 AM EST) Glucose Blood, POC 283(A) 60 - 200 mg/dL [employer] Lot # [id number] Lot# Expiration Date ,025 Blood Capillary blood specimen / Unknown 07/28/2024 9:17 AM EST us Jr Rosen MD POINT OF CARE TEST EN TER/EDIT ORDERABLES Final Result documented in this encounter Visit Diagnoses Diagnosis Essential (primary) hypertension- Primary Unspecified essential hypertension Type 2 diabetes 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, with long-term current use of insulin ([facility]) Stage 3a chronic kidney disease ([facility]) Positive MINDY (antinuclear antibody) Other and unspecified nonspecific immunological findings Primary osteoarthritis involving multiple joints Preventative health care Routine general medical examination at a health care facility Hypercholesterolemia Pure hypercholesterolemia Personal history of alcoholism ([facility]) Personal history of alcoholism Anemia in other chronic diseases classified elsewhere documented in this encounter Additional Health Concerns Assessment Noted Time PHQ-9 Depression Total Score: 0 08/25/19 24 10:55 AM EST documented as of this encounter Care Teams Disease And Insect Control Boss Relationship Specialty Start Date End Date Jr Osborn MD [address] [place] [phone] PCP - General Internal Medicine 04/24/14 documented as of this encounter
--- OUTSIDE RECORDS SUMMARY | 2024-08-25 13:17 | XMS_ITS | Encounter Summary ---
Author Organization [employer] Address [address] [place] [address] Care Team Providers Care Sign Erector And Repairer Name Role Phone Jr Osborn MD Primary Care Provide r Reason for Visit * Reason Comments Med Refill Encounter Details Date Type Department Care Team ([facility] st Contact Info) Description 06/16/2024 Refill [facility] [address] [place] [address] Fawn Esparza MD [address] [place] [address] Essential (primary) hypertension; Type 2 diabetes mellitus without complication, with long-term current use of insulin ([facility]) Social History Tobacco Use Types Packs/Day Years [...] documented as of this encounter Visit Diagnoses Diagnosis Essential (primary) hypertension Unspecified essential hypertension Type 2 diabetes mellitus without complication, with long-term current use of insulin ([facility]) documented in this encounter Additional Health Concerns Assessment Noted Time PHQ-9 Depression Total Score: 0 08/25/19 24 10:55 AM EST documented as of this encounter Care Teams Sign Erector And Repairer Relationship Specialty Start Date End Date Jr Osborn MD [address] [place] [phone] PCP - General Internal Medicine 04/24/14 documented as of this encounter
--- OUTSIDE RECORDS SUMMARY | 2024-08-25 13:17 | XMS_ITS | Encounter Summary ---
Author Organization [employer] Address [address] [place] [address] Care Team Providers Care Nurse Licensed Practical Name Role Phone Jr Osborn MD Primary Care Provide r Reason for Visit * Reason Onset Date Comments Chart Prep 08/12/2024 Encounter Details Date Type Department Care Team ([facility] st Contact Info) Description 08/12/2024 Telephone [facility] [address] [place], [place] [phone] Jr Osborn MD [address] [place], [place] [phone] Chart Prep Social History Tobacco Use Types Packs/Day Years [...] encounter Miscellaneous Notes * Telephone Encounter - Sharla Murdock [place] - 08/12/2024 1:15 PM EST Chart Prep Labs: not done ; Sent a message through [employer] in regards to incomplete lab work. Images: not applicable Vaccines due: Tdap Due, Hep A Due, Hep B Due, PCV20 Due, Flu Due, and RSV in Pharmacy Due Referrals: Not Applicable Screenings: Eye Exam and Foot Exam Overdue care gaps: Glucose and PHQ-9 Chart prep for upcoming appt with Dr.Esparza mayorga. LB documented in this encounter Plan of Treatment Not on file documented as of this encounter Visit Diagnoses Not on filedocumented in this encounter Additional Health Concerns Assessment Noted Time PHQ-9 Depression Total Score: 0 08/25/19 24 10:55 AM EST documented as of this encounter Care Teams Nurse Licensed Practical Relationship Specialty Start Date End Date Jr Osborn MD [address] [place] [address] PCP - General Internal Medicine 04/24/14 documented as of this encounter
--- OUTSIDE RECORDS SUMMARY | 2024-08-25 13:17 | XMS_ITS | Encounter Summary ---
Author Organization [employer] Address [address] [place] [address] Care Team Providers Care Lead [employer]form[employer] Developer Name Role Phone Jr Osborn MD Primary Care Provide r Encounter Details Date Type Department Care Team (Latest Contact Info) Description 08/25/2024 Travel Social History Tobacco Use Types Packs/Day Years Used Date Smoking Tobacco: Former Cigarettes Q uit: 02/24/2011 Passive Smoke Exposure: Past Smokeless Tobacco: Never Depression Answer Date Recorded [...] documented as of this encounter Care Teams Lead [employer]form[employer] Developer Relationship Specialty Start Date End Date Jr Osborn MD [address] [place] [address] PCP - General Internal Medicine 04/24/14 documented as of this encounter
--- OUTSIDE RECORDS SUMMARY | 2024-08-25 13:18 | XMS_ITS | Encounter Summary ---
Author Organization [employer] Address [address] [place] [address] Care Team Providers Care Soubrette Name Role Phone Jr Osborn MD Primary Care Provide r Reason for Visit * Reason Onset Date Comments Medication Question 07/28/2024 Encounter Details Date Type Department Care Team ([facility] st Contact Info) Description 07/28/2024 Refill [facility] [address] [place], [place] [phone] Jr Osborn MD [address] [place] [address] Type 2 diabetes 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, with long-term current use of insulin ([facility]) Social History Tobacco Use Types Packs/Day Years [...] Encounter - Daniela Evangelista RN - 08/01/2024 1:09 PM EST Telephone call returned to pt who reports spoke with [employer] who told him his first fill of trulicity would be $387 but then after that each month would be $47 which he states is manageablefor him. He reports [facility] and they stated that they don't have script for it. Ptstates would like to pickling solution maker PER, preferably today. Informed I would look into this and will let him know. Telephone call placed to pt's [facility] where Rx was sent 07/28/24. Spoke with Jyoti who confirmedthey didn't receive the script. We would have to resend. Pt walked in requesting isolants that can get injected into stomach pt states that pcp offered these isolants but when pcp told him the sow he pt denied them. Now pt would like them due to sugar getting high. * Telephone Encounter - Daniela Evangelista RN - 07/28/2024 2:06 PM EST Telephone call returned to pt regarding below message. Informed Trulicity most likely needs PA and I can work on it for him now. Pt states even with PA, will have to pay >$300 OOP copay monthly because he has [employer] and hasn't reached his copay cap. States can't afford that. Declines trying a different medication. States that he wants to try dietary modification. Has been drinking a lot of gingerale and eating oatmeal and raisin bread. States that he knows those are high in sugar. Has already started working on lifestyle. He states for now will do metformin and dietary modification and if A1C still elevated or glycemic control isn't improved, will discuss trying another med. * Telephone Encounter - Laura Oliveros - 07/28/2024 1:44 PM EST Tc from pt requesting a callback as pt states he was seen today in the office and PCP prescribe himsome medication which pt has to pay out of pocket and he will like an alternative medication. [phone] documented in this encounter Plan of Treatment Not on file documented as of this encounter Visit Diagnoses Diagnosis Type 2 diabetes 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, with long-term current use of insulin ([facility]) documented in this encounter Additional Health Concerns Assessment Noted Time PHQ-9 Depression Total Score: 0 08/25/19 24 10:55 AM EST documented as of this encounter Care Teams Soubrette Relationship Specialty Start Date End Date Jr Osborn MD [address] [place] [id number] PCP - General Internal Medicine 04/24/14 documented as of this encounter
--- OUTSIDE RECORDS SUMMARY | 2024-08-25 13:18 | XMS_ITS | Clinical Summary ---
Author Organization [employer] Address [address] [place] [address] Care Team Providers Care Sales Service Professional Name Role Phone Jr Osborn MD Primary Care Provide r Allergies Active Allergy Reactions Criticality Noted Date Comments Neo Inhibitors Cough Medium 08/22/2010 Tramadol Nausea Only Low 12/21/2018 Other reaction(s): Vomiting Medications empagliflozin (Jardiance) 10 MG Take 10 mg by mouth 1 (one) time each day 01/31/20 22 Active tiZANidine (Zanaflex) 2 MG tabletIndication s:Musculoskeleta l Pain Take 1 tablet (2 mg) by mouth every 6 (six) hours if needed for muscle spasms for up to 10 days. 30 tablet 07/17/20 22 Active aspirin (Aspirin Low Dose) 81 MG EC tablet TAKE 1 TABLET BY MOUTH EVERY DAY 90 tablet 03/13/20 23 Active meloxicam (Mobic) 15 MG tabletIndication s:Pain of both hip joints Take 1 tablet (15 mg) by mouth Once per day. 30 tablet 1 01/12/20 24 Active amLODIPine (Norvasc) 2.5 MG tabletIndication s:Essential (primary) hypertension TAKE 1 TABLET BY MOUTH IN THE MORNING 90 tablet 1 06/16/20 24 Active atenolol (Tenormin) 100 MG tablet TAKE 1 TABLET BY MOUTH EVERY DAY 90 tablet 1 06/16/20 24 Active losartan (Cozaar) 100 MG tabletIndication s:Essential (primary) hypertension TAKE 1 TABLET BY MOUTH EVERY DAY 90 tablet 1 06/16/20 24 Active metFORMIN XR (Glucophage-XR) 500 MG 24 hr tabletIndication s:Type 2 diabetes mellitus without complication, with long-term current use of insulin (CMS/HCC) TAKE 2 TABLETS BY MOUTH EVERY MORNING 180 tablet 1 06/16/20 24 Active simvastatin (Zocor) 20 MG tablet TAKE 1 TABLET BY MOUTH EVERY DAY 90 tablet 1 06/16/20 24 Active FREESTYLE LITE test stripIndications :Type 2 diabetes 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, with long-term current use of insulin (CMS/HCC) Use to test blood sugar 2 times daily 100 each 12 07/28/19 25 026 Active TRUEplus Lancets 33G miscIndications: Type 2 diabetes 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, with long-term current use of insulin (CMS/HCC) 1 each Once per day. 60 each 6 07/28/19 25 Active Alcohol Swabs 70 % padsIndications: Type 2 diabetes 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, with long-term current use of insulin (CMS/HCC) Use to test blood sugar 2 times daily 100 each 07/28/19 25 Active Blood Glucose Monitoring Suppl (FreeStyle [place] Lite) w/Device kitIndications:T ype 2 diabetes 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, with long-term current use of insulin (CMS/HCC) Use to test blood sugar 2 times daily 1 kit 07/28/19 25 Active Dulaglutide (Trulicity) 0.75 MG/0.5ML solution auto-injectorInd ications:Type 2 diabetes 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, with long-term current use of insulin (CMS/HCC) Inject 0.75 mg under the skin 1 (one) time per week. 0.5 mL 3 08/01/19 25 Active glucose blood (FREESTYLE LITE) test strip 1 strip once a day as directed 11/05/19 19 025 Discontinued(Th erapy completed) TRUEplus Lancets 33G misc 1 each in the morning. 025 Discontinued(Re order (will not trigger notification to Pharmacy)) Dulaglutide (Trulicity) 0.75 MG/0.5ML solution auto-injectorInd ications:Type 2 diabetes 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, with long-term current use of insulin (CMS/HCC) Inject 0.5 mL (0.75 mg) under the skin 1 (one) time per week. 0.5 mL 3 07/28/19 25 025 Discontinued(Re order (will not trigger notification to Pharmacy)) Active Problems Problem Noted Date Diagnosed Date Obesity, morbid 08/25/2024 Assessment & Plan (08/25/2024 9:25 AM EST): Patient has been counseled and educated about diet and exercise. Personal goal of weight loss discussedPatient has comorbidity of: DM Primary osteoarthritis involving multiple joints 07/28/2024 Assessment & Plan (07/28/2024 9:17 AM EST): Pt here for a follow up. Pt with c/o generalized joint pain, more significantly on his hips On previous exam, no redness sor swelling. Pt having difficulty walking as a result Initial work up included a Uric acid, CRP, within normal limits, [...] rather consistent with generalized osteoarthritis. He also noted that positive MINDY can be seen in about 20% of the population was no underlying autoimmune rheumatic disease. Significance of his positive MINDY is unclear. Impacted cerumen of left ear 04/28/2024 Assessment & Plan (04/28/2024 10:20 AM EDT): Sveta mcgill 1 week follow up with RN for ear lavage Anemia in other chronic diseases classified else where 12/29/2023 Assessment & Plan (07/28/2024 9:19 AM EST): Pt's most recent CBC showed mild anemia Plan: Obtain, Iron studies, B12, Folate Denies any Melena. Assessment & Plan (04/28/2024 10:12 AM EDT): Repeat showed decrease Assessment & Plan (12/29/2023 9:55 AM EDT): Pt with c/o diffuse joint pain Etiology ? Pt with mild anemia, proteinuria Plan: SPEP, UPEP, Repeat ESR, ECHO Liver cyst 12/29/2023 Assessment & Plan (04/28/2024 10:13 AM EDT): CT of abdomen 07/2022 showed: LIVER, GALLBLADDER, AND BILIARY TREE: There is a cyst along the anterior margin of the liver. Although evaluation is limited without IV contrast, no suspicious or concerning liver lesion seen. Liver U/S 01/11/2024 showed: Diffuse increase in liver echogenicity which can be seen with hepatic steatosis. Previously described left hepatic lobe simple cyst on prior CT dated 08/01/2022 is not visualized. Assessment & Plan (12/29/2023 9:26 AM EDT): CT of abdomen 07/2022 showed: LIVER, GALLBLADDER, AND BILIARY TREE: There is a cyst along the anterior margin of the liver. Although evaluation is limited without IV contrast, no suspicious or concerning liver lesion seen. Plan: Obtain Liver U/S Positive MINDY (antinuclear antibody) 09/29/2023 Assessment & Plan (07/28/2024 9:16 AM EST): Pt here for a follow up. Pt with c/o generalized joint pain, more significantly on his hips On previous exam, no redness sor swelling. Pt having difficulty walking as a result Initial work up included a Uric acid, CRP, within normal limits, [...] rather consistent with generalized osteoarthritis. He also noted that positive MINDY can be seen in about 20% of the population was no underlying autoimmune rheumatic disease. Significance of his positive MINDY is unclear. Assessment & Plan (04/28/2024 10:07 AM EDT): Pt here for a follow up. Pt with c/o generalized joint pain, more significantly on his hips On previous exam, no redness sor swelling. Pt having difficulty walking as a result Initial work up included a Uric acid, CRP, within normal limits, ESR was elevated Plain films hips, knees, shoulders showed: SHOULDERS: No significant bone, joint or soft tissue [...] 03/22/2024. Seen by Tania Aguilar MD . Recommended further testing and 8 weeks follow up. Assessment & Plan (12/29/2023 9:56 AM EDT): Pt with c/o generalized joint pain, more significantly on his hips On exam, no redness sor swelling. Pt having difficulty walking as a result Initial work up included a Uric acid, CRP, within normal limits, ESR was elevated Plani films hips, knees, shoulders showed: SHOULDERS: No significant bone, joint or soft tissue [...] tissue abnormality is seen in either knee. Patient was referred to Rheumatology but he cancelled the appointment, this has been rescheduled for February Obtain: MINDY, Rheum factor Pt lives alone and would benefit from MAGNETIC PROSPECTING OPERATOR services I have asked our nurses to assist Assessment & Plan (09/29/2023 9:22 AM EST): Pt with c/o generalized joint pain, more significantly on his hips On exam, no redness sor swelling. Pt having difficulty walking as a result Plan: Uric acid, CRP, MINDY, ESR, Rheum factor Plani films hips, knees, shoulders Rheumatology referral Pt lives alone and would benefit from MAGNETIC PROSPECTING OPERATOR services I have asked our nurses to assist Peripheral polyneuropathy 07/16/2023 Assessment & Plan (12/29/2023 9:48 AM EDT): Pt with c/o bilateral LE pain associated with sensation of pins and needles. Pt with c/o intermittent Bilateral LE weakness NCS showed: Moderate axonal sensory neuropathy affecting feet more than legs with intact motor nerves. No evidence of radiculopathy. B 12, Folate Normal RPR ordered Pt not interested in taking neurontin Assessment & Plan (08/25/2023 11:08 AM EST): Pt with c/o bilateral LE pain associated with sensation of pins and needles. Pt with c/o intermittent Bilateral LE weakness Etiology ? Peripheral Neuropathy ? NCS showed: Moderate axonal sensory neuropathy affecting feet more than legs with intact motor nerves. No evidence of radiculopathy. B 12, Folate, RPR ordered not done Pt not interested in taking neurontin Assessment & Plan (07/16/2023 1:10 PM EST): Pt with c/o bilateral LE pain associated with sensation of pins and needles. Pt with c/o intermittent Bilateral LE weakness Etiology ? Peripheral Neuropathy ? Plan: NCS, B 12, Folate, RPR 1 month follow up Gout 01/20/2023 Assessment & Plan (12/29/2023 9:57 AM EDT): Intermittent flare ups Rheumatology referral, scheduled for February cancelled appointment he had back in October Assessment & Plan (09/29/2023 9:04 AM EST): Intermittent flare ups Rheumatology referral Assessment & Plan (01/20/2023 10:33 AM EDT): Seen in the ER 01/09/2023. Treated with Prednisone with good results but pain and swelling of left great toe came back after finished Plan: Longer prednisone inder, Uric Acid, plain film left foot Follow up if no improvement Diverticulitis 01/20/2023 Assessment & Plan (01/20/2023 10:17 AM EDT): Seen in the Er December Adhesive capsulitis of left shoulder 07/17/2022 Assessment & Plan (07/17/2022 8:40 AM EST): Pt reports an injury to left shoulder after he fell out of bed did not seek medical attention. On exam there was marked decreased ROM, no deformity ? adhesive capsulitis ? Plain films 01/08/2017 Normal. Pt was referred to PT but pt did not want to go. Pt was seen by Ortho who did an MRI that showed adhesive capsulitis Nephrolithiasis 07/17/2022 Assessment & Plan (07/17/2022 8:41 AM EST): Used to be under the care of Dr. Frank, underwent Lithotripsy 01/09/2014 Currently not complaining. Diverticulosis of colon 07/17/2022 Assessment & Plan (01/20/2023 10:32 AM EDT): Pt seen in the ER 01/04/2023 with c/o abdominal pain. Ct showed diverticulitis pt was treated with Antibiotics currently asymptomatic. Last Colonoscopy [address] Hernandez He developed a reaction to tramadol Will continue to observe Assessment & Plan (07/17/2022 8:42 AM EST): Pt seen in the ER 12/03/2018 with c/o abdominal pain. Ct showed mild diverticulitis pt was treated with Cipro and Flagyl currently asymptomatic. Last Colonoscopy [address] Hernandez He developed a reaction to tramadol [facility] care 07/17/2022 Assessment & Plan (07/28/2024 9:13 AM EST): PSA 07/30/2023: 1.66 Normal Colonoscopy: 12/12/2015 Dr. hernandez Assessment & Plan (07/17/2022 8:42 AM EST): BECCA: Normal 03/06/2015, PSA 01/17/2022 Colonoscopy: Dr. Hernandez 2015 Right flank pain 07/17/2022 Assessment & Plan (12/29/2023 9:46 AM EDT): Completely resolved, denies any pain in that area whatsoever Previously with c/o acute onset of right sided back and flank pain for several days, patient denies any injury, no recent fall, He does have a Hx of nephrolithiasis and is questioning if he has one. On exam pt was tender to palpation right sided thoracic back and flank pain, suggestive of spasm. U/A was negative for blood I recommended NSAIDS and Muscle relaxants. Pt declined use of NSAIDS and agreed to try the muscle relaxant. plain films of his thoracic spine and rib cage showed degenerative changes CT of his Abdomen and Pelvis to r/o a kidney stone was unremarkable 08/01/[address] findings. No significant change from prior study. Assessment & Plan (01/20/2023 10:10 AM EDT): Pt here for a follow up Previously with c/o acute onset of right sided back and flank pain for several days, patient denies any injury, no recent fall, He does have a Hx of nephrolithiasis and is questioning if he has one. On exam pt was tender to palpation right sided thoracic back and flank pain, suggestive of spasm. U/A was negative for blood I recommended NSAIDS and Muscle relaxants. Pt declined use of NSAIDS and agreed to try the muscle relaxant. plain films of his thoracic spine and rib cage showed degenerative changes CT of his Abdomen and Pelvis to r/o a kidney stone was unremarkable 08/01/[address] findings. No significant change from prior study. Assessment & Plan (07/17/2022 12:45 PM EST): Pt here with c/o acute onset of [...] r/o a kidney stone. 1 month f/u Hypercholesterolemia 10/31/2021 Assessment & Plan (07/28/2024 9:14 AM EST): Most recent lipid profile from: Lab Results [...] diet, counseled and educated about diet and exercise, Patient encouraged to come up with a personal goal for weight loss. Assessment & Plan (07/16/2023 12:53 PM EST): Most recent lipid profile from: 01/17/2022 shows a total cholesterol of: 144 triglycerides of: 139 HDL of: 36 and LDL of: 84 Repeat Lipid profile Pt is on Zocor 20 mg po q hs. . For now will continue with current regimen advised to try to adhere to a low cholesterol diet, counseled and educated about diet and exercise, Patient encouraged to come up with a personal goal for weight loss. Assessment & Plan (07/17/2022 8:37 AM EST): Most recent lipid profile from: 01/17/2022 shows a total cholesterol of: 144 triglycerides of: 139 HDL of: 36 and LDL of: 84 Pt is on Zocor 20 mg po q hs. . For now will continue with current regimen advised to try to adhere to a low cholesterol diet, counseled and educated about diet and exercise, Patient encouraged to come up with a personal goal for weight loss. Essential (primary) hypertension 10/31/2021 Assessment & Plan (07/28/2024 9:08 AM EST): Patient is here for a f/u I suspect there is an element of white coat hypertention He is already under the care of [employer] [facility] Dr Kennedy He is on a regimen [...] about medication compliance, counseled about weight loss. Assessment & Plan (04/28/2024 10:07 AM EDT): Patient is here for a f/u I suspect there is an element of white coat hypertention He is already under the care of [employer] Dr Kennedy He is on a regimen of: Atenolol 100 mg po daily , Cozaar 100 mg po daily and Norvasc 2.5 mg po daily Most recent electrolytes, Bun and Creatinine done on: 09/29/2023 were within normal limits. Plan: Continue current regimen, no changes for now patient advised to adhere to a low sodium diet, encouraged about medication compliance, counseled about weight loss. Assessment & Plan (12/29/2023 9:33 AM EDT): Patient is here for a f/u I suspect there is an element of white coat hypertention He is already under the care of [employer] Dr Kennedy He is on a regimen of: Atenolol 100 mg po daily , Cozaar 100 mg po daily and Norvasc 2.5 mg po daily Most recent electrolytes, Bun and Creatinine done on: 09/29/2023 were within normal limits. Todaqy he tells me he did not take his medications, reason why is elevated Plan: Continue current regimen, no changes for now, tells me has an upcoimg appointment with Dr. kennedy patient advised to adhere to a low sodium diet, encouraged about medication compliance, counseled about weight loss. Assessment & Plan (09/29/2023 9:13 AM EST): Patient is here for a f/u I suspect there is an element of white coat hypertention He is already under the care of [employer] Dr Kennedy He is on a regimen of: Atenolol 100 mg po daily , Cozaar 100 mg po daily and Norvasc 2.5 mg po daily Most recent electrolytes, Bun and Creatinine done on: 01/04/2023 were within normal limits. Today will order a repeat BMP Plan: Continue current regimen patient advised to adhere to a low sodium diet, encouraged about medication compliance, counseled about weight loss. Assessment & Plan (08/25/2023 11:06 AM EST): Patient is here for a f/u BP elevated I suspect there is an element of white coat hypertention He is already under the care of [employer] Dr Kennedy He is on a regimen of: Atenolol 100 mg po daily and Cozaar 100 mg po daily Most recent electrolytes, Bun and Creatinine done on: 01/04/2023 were within normal limits. Plan: Start Norvasc 2.5 mg po daily patient advised to adhere to a low sodium diet, encouraged about medication compliance, counseled about weight loss. Assessment & Plan (07/16/2023 1:06 PM EST): Patient is here for a f/u BP elevated, pt insists at home is always normal I suspect there is an element of white coat hypertention He is already under the care of [employer] Dr Kennedy He is on a regimen of: Atenolol 100 mg po daily and Cozaar 100 mg po daily Most recent electrolytes, Bun and Creatinine done on: 01/04/2023 were within normal limits. Plan: Continue current regimen Asked to come back with BP monitor in 4 weeks ro compare patient advised to adhere to a low sodium diet, encouraged about medication compliance, counseled about weight loss. Assessment & Plan (03/03/2023 10:42 AM EDT): Patient is here for a f/u Pt came in for a BP check recently with RN and found to be under control Today BP: 148/100. I suspect there is an element of white coat hypertention He is under the care of [employer] Dr Kennedy He is on a regimen of: Atenolol 100 mg po daily and Cozaar 100 mg po daily Most recent electrolytes, Bun and Creatinine done on: 01/04/2023 were within normal limits. Plan: Continue current regimen Follow up in 4 months patient advised to adhere to a low sodium diet, encouraged about medication compliance, counseled about weight loss. Assessment & Plan (01/20/2023 10:33 AM EDT): Here for a f/u BP uncontrolled He is on a regimen of: Atenolol 100 mg po daily and Cozaar 100 mg po daily Most recent electrolytes, Bun and Creatinine done on: 01/04/2023 were within normal limits. Pt with c/o pain on his foot likely contributing to blood pressure Plan: Continue current regimen for now BP check with RN 3 weeks 6 weeks with me patient advised to adhere to a low sodium diet, encouraged about medication compliance, counseled about weight loss. Assessment & Plan (07/17/2022 8:36 AM EST): Here for a f/u BP controlled He is on a regimen of: Atenolol 100 mg po daily and Cozaar 100 mg po daily Most recent electrolytes, Bun and Creatinine done on: 10/21/2021 were within normal limits. Will repeat Plan: Continue current regimen patient advised to adhere to a low sodium diet, encouraged about medication compliance, counseled about weight loss. f/u 4 months Stage 3a chronic kidney disease 10/31/2021 Assessment & Plan (07/28/2024 9:09 AM EST): Here for a follow up Remains under the care of Nephrology ( Dr Kennedy ) Last seen October 27, 2022 Plan: Avoid nephrotoxins, aim to better BP control Pt told me he will contact Dr. Kennedy for a follow up Assessment & Plan (12/29/2023 9:49 AM EDT): Here for a follow up Remains under the care of Nephrology ( Dr Kennedy ) Last seen October 27, 2022 Plan: Avoid nephrotoxins, aim to better BP control Pt tells me he will contact Dr. Kennedy for a follow up Assessment & Plan (01/20/2023 12:46 PM EDT): Here for a follow up Remains under the care of Nephrology ( Dr Kennedy ) Last seen October 27, 2022 Plan: Avoid nephrotoxins, aim to better BP control Assessment & Plan (07/17/2022 8:39 AM EST): Under the care of Nephrology ( Dr Kennedy ) Last seen October 2021 Plan: Avoid nephrotoxins, aim to better BP control Personal history of alcoholism 06/14/2015 Assessment & Plan (07/28/2024 9:14 AM EST): Pt tells me he has not drank anything for years Assessment & Plan (04/28/2024 10:11 AM EDT): Pt tells me he has not drank anything for years Assessment & Plan (07/16/2023 1:07 PM EST): Pt tells me he has not drank anything for > 1 year Dermatophytosis 01/08/2012 Tobacco dependence syndrome 01/08/2012 Type 2 diabetes mellitus with renal complication 01/08/2012 Assessment & Plan (08/25/2024 9:24 AM EST): Pt is here for a f/u regarding [...] check your feet on a daily basis. Assessment & Plan (07/28/2024 9:33 AM EST): Pt is here for a f/u regarding [...] check your feet on a daily basis. Assessment & Plan (04/28/2024 10:18 AM EDT): Pt is here for a f/u regarding his DM He is on a regimen of Metformin XR 500 mg po 2 tabs in AM Hgb A1c 04/28/2024 : 10.2 from 7.3 Eye exam : last on record 06/17/2019 wnl. Microalbumin checked on: 10/21/2021 was: 17.3 Pt on an ARB. Foot check risk of zero Pt reports compliance with Asa 81 mg po daily Patient tells me he has been eating ice cream every day. He promised to stop Plan: Pt does not want to make changes to his regimen. No changes, other than adhering to DM diet. 4 month f/u Pt advised to: adhere to diabetic diet check your blood sugars regularly check your feet on a daily basis. Assessment & Plan (12/29/2023 9:50 AM EDT): Pt is here for a f/u regarding his DM He is on a regimen of Metformin XR 500 mg po 2 tabs in AM Hgb A1c 12/29/2023 7.3 Eye exam : last on record 06/17/2019 wnl. Microalbumin checked on: 10/21/2021 was: 17.3 Pt on an ARB. Foot check risk of zero Pt reports compliance with Asa 81 mg po daily Plan: continue current regimen, pt does not want to make changes to his regimen 4 month f/u Pt advised to: adhere to diabetic diet check your blood sugars regularly check your feet on a daily basis. Assessment & Plan (09/29/2023 9:23 AM EST): Pt is here for a f/u regarding his DM He is on a regimen of Metformin XR 500 mg po 2 tabs in AM Hgb A1c 09/29/2023 6.7 Eye exam : last on record 06/17/2019 wnl. Microalbumin checked on: 10/21/2021 was: 17.3 Pt on an ARB. Foot check risk of zero Pt reports compliance with Asa 81 mg po daily Plan: continue current regimen 4 month f/u Pt advised to: adhere to diabetic diet check your blood sugars regularly check your feet on a daily basis. Assessment & Plan (07/16/2023 1:15 PM EST): Pt is here for a f/u regarding his DM He is on a regimen of Metformin XR 500 mg po 2 tabs in AM Hgb A1c 07/16/2023: 6.7 Eye exam : last on record 06/17/2019 wnl. Microalbumin checked on: 10/21/2021 was: 17.3 Pt on an ARB. Foot check risk of zero Pt reports compliance with Asa 81 mg po daily Plan: continue current regimen 4 month f/u Pt advised to: adhere to diabetic diet check your blood sugars regularly check your feet on a daily basis. Assessment & Plan (01/20/2023 10:24 AM EDT): Pt is here for a f/u regarding his DM He is on a regimen of Metformin XR 500 mg po 2 tabs in AM Hgb A1c 01/20/2023: 6.9 Eye exam : last on record 06/17/2019 wnl. Microalbumin checked on: 10/21/2021 was: 17.3 Pt on an ARB. Foot check risk of zero Pt reports compliance with Asa 81 mg po daily Plan: continue current regimen 4 month f/u Pt advised to: adhere to diabetic diet check your blood sugars regularly check your feet on a daily basis. Assessment & Plan (07/17/2022 12:47 PM EST): Pt is here for a f/u regarding his DM He is on a regimen of Metformin XR 500 mg po 2 tabs in AM Hgb A1c 07/17/2022 was : 6.2 Eye exam : last on record 06/17/2019 wnl. Microalbumin checked on: 10/21/2021 was: 17.3 Pt on an ARB. Foot check risk of zero Pt reports compliance with Asa 81 mg po daily Plan: continue current regimen 4 month f/u Pt advised to: adhere to diabetic diet check your blood sugars regularly check your feet on a daily basis. Hypertensive left ventricular hypertrophy 2011 Encounters Date Type Department Care Team Description 08/25/2024 9:15 AM EST Office Visit [address] [id number] Jr Osborn MD Type 2 diabetes 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, with long-term current use of insulin (CMS/HCC) (Primary Dx); Obesity, morbid (CMS/HCC); Dietary counseling; Exercise counseling 08/25/2024 Travel 08/12/[address] [id number] Jr Osborn MD Chart Prep 08/01/[address] [address] Jr Osborn MD Med Refill 07/28/2024 9:15 AM EST Office Visit [address] [id number] Jr Osborn MD Essential (primary) hypertension (Primary Dx); Type 2 diabetes 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, with long-term current use of insulin (CMS/HCC); Stage 3a chronic kidney disease (CMS/HCC); Positive MINDY (antinuclear antibody); Primary osteoarthritis involving multiple joints; Preventative health care; Hypercholesterolemia; Personal history of alcoholism ([facility]); Anemia in other chronic diseases classified elsewhere 07/28/2024 Refill [facility] [address] [place] [address] Jr Osborn MD Type 2 diabetes 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, with long-term current use of insulin ([facility]) 07/28/2024 Travel 07/14/2024 Telephone [facility] [address] [place], [place] [phone] Jr Osborn MD Chart Prep 06/16/2024 Refill [facility] [address] [place], [place] [phone] Fawn Esparza MD Essential (primary) hypertension; Type 2 diabetes mellitus without complication, with long-term current use of insulin ([facility]) 06/15/2024 Refill [facility] [address] [place], [place] [phone] Jr Osborn MD Essential (primary) hypertension; Type 2 diabetes mellitus without complication, with long-term current use of insulin ([facility]) from Last 3 Months Immunizations Name Administration Dates Next Due Influenza High-dose Quadriva lent Preservative Free 04/27/2022,04/10/2021,04/12/2020 Influenza Quadrivalent Adjuvanted 04/22/2023 Influenza, High Dose Seasona l, Preservative Free 04/27/2018,04/08/2017,04/25/2016 Influenza, IIV3, injectable 04/18/2014 Influenza, Split (incl. neymar fied surface antigen) 03/29/2013,03/30/2012 Influenza, Unspecified 04/12/2020,04/18/2014 Moderna Covid-19 Vaccine 12+ 12/10/2021,10/24/19 21,09/25/2020 Pneumococcal Conjugate PCV 13 01/08/2017 Tdap 03/23/2012 Zoster, Recombinant 09/02/2021,05/13/2021 Zoster, live 11/07/2014 Social History Tobacco Use Types Packs/Day Years [...] not to disclose 2021 10:19 AM EDT Last Filed Vital Signs Vital Sign Reading [...] Mass Index 35.92 08/25/2024 9:11 AM EST Plan of Treatment Health Maintenance Due Date Last Done Comments CT Colonography 1950 FIT DNA/Cologuard 1950 FIT 1950 FOBT 1950 Sigmoidoscopy 1950 Diabetes: Foot Exam 1960 Eye Exam 1960 Hepatitis A Vaccines (1 of 2 - Risk 2-dose series) 1969 Hepatitis B Vaccines (1 of 3 - Risk 3-dose series) 2010 RSV Patients and Patients Aged 60 years or older (1 - Risk 60-74 years 1-dose series) 2010 Pneumococcal Vaccine: 50+ Years (2 of 2 - PPSV23) 03/05/2017 01/08/2017 DTaP/Tdap/Td Vaccines (2 - Td or Tdap) 03/23/2022 03/23/2012 Influenza Vaccine (#1) 2024 , 04/27/2022, 04/10/2021, Additional history exists Depression Screening 08/25/2024 08/25/2023, 08/25/19 24 Lipid Panel 09/28/2024 09/29/2023, 07/29, 01/17/2022, Additional history exists Diabetes: Hemoglobin A1C 10/26/2024 025, 04/28/2024, 12/29/2023, Additional history exists SDOH Screening 04/28/2025 04/28/2024 Alcohol/Substance Use Screening 07/28/2025 07/28/2024 Tobacco Screening 08/25/2025 08/25/2024 Colonoscopy 12/11/2025 12/12/2015 Colorectal Cancer Screening 12/11/2025 Zoster Vaccines Completed 09/02/2021, 04/26, 11/07/2014 Hepatitis C Screening Completed 03/22/2024, 024 COVID-19 Vaccine Completed 04/20/2024, , 06/10/2021, Additional history exists HIB Vaccines Aged Out No longer eligi ble based on patient's age to complete this topic HPV Vaccines Aged Out No longer eligi ble based on patient's age to complete this topic IPV Vaccines Aged Out No longer eligi ble based on patient's age to complete this topic Meningococcal Vaccine Aged Out No [place] eligible based on patient's age to complete this topic RSV under 20 months Aged Out No longe r eligible based on patient's age to complete this topic Rotavirus Vaccines Aged Out No longer eligible based on patient's age to complete this topic Procedures Procedure Name Priority Date/Time Associated Diagnosis Comments FERRITIN Routine 08/25/2024 10:10 AM EST Anemia in other chronic diseases classified elsewhere IRON AND TOTAL IRON BINDING CAPACITY Routine 08/25/2024 10:10 AM EST Anemia in other chronic diseases classified elsewhere VITAMIN B12/FOLATE, SERUM PANEL Routine 08/25/2024 10:10 AM EST Anemia in other chronic diseases classified elsewhere CBC WITH AUTO DIFFERENTIAL Routine 08/25/2024 10:10 AM EST Anemia in other chronic diseases classified elsewhere ALBUMIN, RANDOM URINE W/CREATININE Routine 08/25/2024 10:10 AM EST Anemia in other chronic diseases classified elsewhere POCT GLUCOSE Routine 08/25/2024 9:19 AM EST Type 2 diabetes 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, with long-term current use of insulin ([facility]) POCT GLYCATED HEMOGLOBIN, TOTAL Routine 07/28/2024 9:21 AM EST Type 2 diabetes 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, with long-term current use of insulin (CMS/HCC) POCT GLUCOSE Routine 07/28/2024 9:17 AM EST Type 2 diabetes 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, with long-term current use of insulin (CMS/HCC) HEPATITIS PANEL, GENERAL Routine 03/22/2024 1:53 PM EDT LIPID PANEL WITH REFLEX TO DIRECT LDL Routine 09/29/2023 9:23 AM EST Essential (primary) hypertension COLONOSCOPY Routine 12/12/2015 from Last 3 Months or Most Recently Relevant to Health Maintenance Results * Vitamin B12/Folate, Serum Panel (08/25/2024 10:10 AM EST) Vitamin B12 380 200 - 900 pg/mL [facility] Comment:NORMAL 200-900 PG/ML INDETERMINATE 160-199 PG/ML DEFICIENT < 160 PG/ML Folate 14.5 > or = 4.0 ng/mL [facility] Comment:Reference Values:> o r = 4.0 ng/mL< 4.0 ng/mL suggests folate deficiency Methotrexate, aminopterin and folinic acid(leucovorin) are chemotherapeutic agents whose molecularstructures are similar to folate; therefore, the Architectfolate assay cannot be used for patients using these drugs. Blood Venous blood specimen / Unknown 08/25/2024 10:10 AM EST 08/25/2024 11:04 AM EST us Jr Rosen MD LAB BLOOD ORDERABLES Final Result [facility] [address] [place] [phone] * CBC auto differential (08/25/2024 10:10 AM EST) Pathologist [facility] White Blood Count 8.1 4.8 - 10.8 X10*3/uL [facility] Red Blood Count 4.82 4.60 - 5.80 X10*6/uL [facility] Hemoglobin 15.0 14.0 - 18.0 g/dl [facility] Hematocrit 43.6 42.0 - 52.0 % [facility] Mean Corpuscular Volume 90.5 80.0 - 98.0 fL [facility] Mean Corpuscular Hemoglobin 31.1 27.0 - 33.0 pg [facility] Mean Corpuscular HGB Conc 34.4 31.0 - 36.0 g/dl [facility] Red Cell Distribution Width 12.9 11.0 - 16.0 % [facility] Platelet Count 211 160 - 400 X10*3/uL [facility] Mean Platelet Volume 10.6 9.4 - 12.4 fL [facility] Neutrophils Percent Auto 55.7 45 - 73 % [facility] Imm Gran Pct Auto 0.4 0.0 - 0.4 % [facility] Lymphocytes Percent Auto 32.1 20 - 40 % [facility] Monocytes Percent Auto 8.7 2 - 11 % [facility] Eosinophils Percent Auto 2.7 0 - 4 % [facility] Basophils Percent Auto 0.4 0 - 2 % [facility] NRBC Pct Auto 0.0 0.0 - 0.2 /100WBC [facility] Neutrophils Absolute Auto 4.5 2.0 - 8.3 x10*3/uL [facility] Imm Gran Abs Auto 0.03 0.00 - 0.03 X10*3/uL [facility] Lymphocytes Absolute Auto 2.6 1.2 - 4.9 X10*3/uL [facility] Monocytes Absolute Auto 0.7 0.1 - 1.2 X10*3/uL [facility] Eosinophils Absolute Auto 0.2 0.0 - 0.4 X10*3/uL [facility] Basophils Absolute Auto 0.0 0.0 - 0.2 X10*3/uL [facility] NRBC Abs Auto 0.000 0.0 - 0.012 X10*3/uL [facility] Blood Venous blood specimen / Unknown 08/25/2024 10:10 AM EST 08/25/2024 11:04 AM EST us Jr Rosen MD LAB BLOOD ORDERABLES Final Result [facility] [address] [place] [phone] * Iron And Total Iron Binding Capacity (08/25/2024 10:10 AM EST) Iron 106 45 - 160 mcg/dL [facility] Comment:Slight Hemolysis.Int erpret result with caution. Total Iron Binding Capacity 275 228 - 428 mcg/dL [facility] Percent Iron Saturation 39 15 - 50 % [facility] Unsaturated Iron Binding 169 ug/dL [facility] Blood Venous blood specimen / Unknown 08/25/2024 10:10 AM EST 08/25/2024 11:04 AM EST us Jr Rosen MD LAB BLOOD ORDERABLES Final Result Performing Organization Address City/[facility]/ZIP Co de Phone Number [facility] [address] [place] [phone] * (ABNORMAL) Ferritin (08/25/2024 10:10 AM EST) [facility] Ferritin 262(H) 20 - 250 ng/mL [facility] Blood Venous blood specimen / Unknown 08/25/2024 10:10 AM EST 08/25/2024 11:04 AM EST us Jr Rosen MD LAB BLOOD ORDERABLES Final Result Performing Organization Address [facility] Co de Phone Number [facility] [address] [place] [phone] * (ABNORMAL) POCT Glucose (08/25/2024 9:19 AM EST) Only the most recent of2 resultswithin the time period is included. Pathologist [facility] Glucose Blood, POC 140(A) 60 - 200 mg/dL QC Media Lot # [id number] Lot# Expiration Date ,621,379 Blood Capillary blood specimen / Unknown 08/25/2024 9:19 AM EST us Jr Rosen MD POINT OF CARE TEST EN TER/EDIT ORDERABLES Final Result * (ABNORMAL) POCT HGB A1C (07/28/2024 9:21 AM EST) Hemoglobin A1C 9.9(A) 4.0 - 6.0 % QC Media Lot # [id number] Lot# Expiration Date 237 Blood 07/28/2024 9:21 AM EST Jr Rosen MD POINT OF CARE TEST EN TER/EDIT ORDERABLES Final Result * Hepatitis Panel, General (03/22/2024 1:53 PM EDT) Pathologist [facility] Hepatitis A IgM Nonreactive Nonreactive [facility] Comment:IgM antibodies to ROSS V not detected; does not exclude earlyacute or recovered HAV infection. ~Hepatitis B Surface Antibody GRAYZONE Nonreactive [facility] Comment:GRAYZONE: 8.00 mIU/m L TO 11.99 mIU/mLTHE IMMUNE STATUS OF THE INDIVIDUAL SHOULD BE FURTHERASSESSED BY CONSIDERING OTHER FACTORS, SUCH CLINICALSTATUS, FOLLOW-UP TESTING, ASSOCIATED RISK FACTORS, AND THEUSE OF ADDITIONAL DIAGNOSTIC INFORMATION. Hepatitis B Core Antibody Nonreactive Nonreactive [facility] Hepatitis C Antibody Nonreactive Nonreactive [facility] Comment:Antibodies to HCV no t detected; does not exclude early acuteHCV infection. Hepatitis B Surface Ag Negative Negative [facility] 03/22/2024 1:53 PM EDT 03/22/2024 1:53 PM EDT us Generic External Data Provider LAB BLOOD ORDERAB LES Final Result [facility] [address] [place] [phone] * (ABNORMAL) Lipid Panel with Reflex to Direct LDL (09/29/2023 9:23 AM EST) Triglycerides 139 <150 mg/dL [facility] Comment:Desirable Triglyceri de: less than 150 mg/dLBorderline High Triglyceride 150-199 mg/dLHigh Triglyceride: 200-499 mg/dLVery High Triglyceride: greater than or equal to 5OO mg/dL Cholesterol 133 <200 mg/dL [facility] Comment:Desirable Cholestero l: less than 200 mg/dLBorderline High Cholesterol: 200-239 mg/dLHigh Cholesterol: greater than 239 mg/dL LDL Cholesterol Calculated 71 <100 mg/dL [facility] Comment:Desirable LDL: less than 100 mg/dLNear Optimal/Above Optimal LDL: 110- 129 mg/dLBorderline High LDL: 130-159 mg/dLHigh LDL: 160-189 mg/dLVery High LDL: greater than or equal to 190 mg/dL HDL Cholesterol 35(L) >40 mg/dL [facility] Comment:Desirable HDL: great er than 40 mg/dL Note: This HDL assay may give artificially low results in patients with liver disease. Blood 09/29/2023 9:23 AM EST 09/29/2023 11:37 AM EST Jr Rosen MD LAB BLOOD ORDERABLES Final Result [facility] [address] [place] [phone] * Colonoscopy (12/12/2015) Colonoscopy Normal Normal 12/12/2015 Narrative Cathy Lisa - 12/12/2015 11:20 AM EDT Recommended 10 year follow up ( see scanned notes ) Historical Provider HEALTH MAINTENANCE Edited Result - Final from Last 3 Months or Most Recently Relevant to Health Maintenance Insurance [facility] MEDICARE ADVANTAGE HMO Care Teams Sales Service Professional Relationship Specialty Start Date End Date Jr Osborn MD [address] [place] [phone] PCP - General Internal Medicine 04/24/14
== END 2024-08-25 10:05 | disposition home or self-care (01) ==
LOC: HO.HHCL 10:04
PROVIDERS: Internal Medicine; Visit Provider Internal Medicine
DX: D64.9 Anemia, unspecified (principal)
CPT/HCPCS: 36415; 82043; 82570; 82607; 82728; 82746; 83540; 85025

== ENCOUNTER 2024-12-15 08:31 | Outpatient (REF) | payer MEDICARE, SELFPAY ==
--- OUTSIDE RECORDS SUMMARY | 2024-12-15 08:44 | XMS_ITS | Encounter Summary ---
Author Organization [employer] Address [address] [place] [address] Care Team Providers Care Select Banker Name Role Phone Jr Osborn MD Primary Care Provide r Reason for Visit * Reason Onset Date Comments Med Refill 11/30/2023 Encounter Details Date Type Department Care Team ([facility] st Contact Info) Description 11/30/2023 Telephone [facility] [address] [place], [place] [phone] Jr Osborn MD [address] [place], [place] [phone] Med Refill Social History Tobacco Use Types [...] 15 MG tablet To be sent to: [id number] [place] - [address] [facility] documented in this encounter Plan of Treatment Upcoming Encounters Date Type Department Care Team (Late st Contact Info) Description 03/23/2025 9:15 AM EDT Office Visit [facility] [address] [place] [phone] Jr Osborn MD [address] [place] [phone] documented as of this encounter Visit Diagnoses Not on filedocumented in this encounter Additional Health Concerns Assessment Noted Time PHQ-9 Depression Total Score: 0 08/25/19 10:55 AM EST documented as of this encounter Care Teams Select Banker Relationship Specialty Start Date End Date Jr Osborn MD [address] [place] [phone] PCP - General Internal Medicine 04/24/14 documented as of this encounter
--- OUTSIDE RECORDS SUMMARY | 2024-12-15 08:44 | XMS_ITS | Encounter Summary ---
Author Organization [employer] Address [address] [facility] [address] [place] [address] Care Team Providers Care Customer Service Receptionist Name Role Phone Jr Osborn MD Primary Care Provide r Reason for Visit * Reason Comments Med Refill Encounter Details Date Type Department Care Team ([facility] st Contact Info) Description 06/16/2024 Refill [facility] [address] [place] [address] Fawn Esparza MD [address] [place] [address] Essential (primary) hypertension; Type 2 diabetes mellitus without complication, with long-term current use of insulin ([facility]) Social History Tobacco Use Types Packs/Day Years [...] as of this encounter Plan of Treatment Upcoming Encounters Date Type Department Care Team (Late st Contact Info) Description 03/23/2025 9:15 AM EDT Office Visit [facility] [address] [place] [address] Jr Osborn MD [address] [place] [address] documented as of this encounter Visit Diagnoses Diagnosis Essential (primary) hypertension Unspecified essential hypertension Type 2 diabetes mellitus without complication, with long-term current use of insulin ([facility]) documented in this encounter Additional Health Concerns Assessment Noted Time PHQ-9 Depression Total Score: 0 08/25/19 24 10:55 AM EST documented as of this encounter Care Teams Customer Service Receptionist Relationship Specialty Start Date End Date Jr Osborn MD [address] [place] [address] PCP - General Internal Medicine 04/24/14 documented as of this encounter
--- OUTSIDE RECORDS SUMMARY | 2024-12-15 08:44 | XMS_ITS | Encounter Summary ---
Author Organization [employer] Address [address] [facility] [address] [place] [address] Care Team Providers Care Reel Hooker Name Role Phone Jr Osborn MD Primary Care Provide r Encounter Details Date Type Department Care Team (Late st Contact Info) Description 11/28/2022 Abstract [facility] [address] [place] [phone] Jr Osborn MD [address] [place] [address] [phone] Social History Tobacco Use Types Packs/Day Years [...] Description 03/23/2025 9:15 AM EDT Office Visit [facility] [address] [place] [address] [phone] Jr Osborn MD [address] [place] [address] [phone] documented as of this encounter Procedures Procedure [...] on filedocumented in this encounter Care Teams Reel Hooker Relationship Specialty Start Date End Date Jr Osborn MD [address] [place] [address] PCP - General Internal Medicine 04/24/14 documented as of this encounter
--- OUTSIDE RECORDS SUMMARY | 2024-12-15 08:44 | XMS_ITS | Clinical Summary ---
Author Organization [facility] Address [address] [place] [phone] Care Team Providers Care Fine Chemicals Operator Name Role Phone Jr Monzon MD Primary [...] 01/08/2012 Hypertensive left ventricular hypertrophy 2011 Immunizations Immunization Administration Dates Next Due Influenza Split 03/29/2013,03/30/2012 [...] Colorectal Cancer Screening: Sigmoidoscopy 1999 Pneumococcal Vaccine: 50+ Years (2 of 2 - PPSV23, PCV20, or PCV21) 03/05/2017 01/08/2017 Diabetes: Hemoglobin A1C 10/31/2021 Diabetes: Ophthalmology Exam 10/31/2021 Diabetes: Pedal Pulse Checked 10/31/2021 Diabetes: Sensory Foot Exam 10/31/2021 Diabetes: Visual Foot Exam 10/31/2021 Influenza Vaccine (Season Ended) 2025 04/12/2020, 04/27/2018, 04/08/2017, Additional history exists Hepatitis B Vaccine Aged Out No longe r eligible based on patient's age to complete this topic Insurance Member Subscriber Plan / Payer (Ef fective 2021-Present) Name:Christopher Rodriguez Relation to Subscriber:Self Name:Christopher Rodriguez Payer ID:[id number] (NAIC) Type:Not on file Address: [place] [phone] Care Teams Fine Chemicals Operator Relationship Specialty Start Date End Date Jr Monzon MD PCP - General Internal Medicine 10/28/21
--- OUTSIDE RECORDS SUMMARY | 2024-12-15 08:45 | XMS_ITS | Clinical Summary ---
Author Organization [employer] Address [address] [facility] [address] [place] [address] Care Team Providers Care Technical Project Lead Name Role Phone Jr Osborn MD Primary [...] 10 days. 30 tablet 07/17/20 22 Active meloxicam (Mobic) 15 MG tabletIndication s:Pain of both hip joints Take 1 tablet (15 mg) by mouth Once per day. 30 tablet 1 01/12/20 24 Active simvastatin (Zocor) 20 MG tablet TAKE 1 TABLET BY MOUTH EVERY DAY 90 tablet 1 06/16/20 24 Active FREESTYLE LITE test stripIndications :Type 2 diabetes 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, with long-term current use of insulin (CMS/HCC) Use to test blood sugar 2 times daily 100 each 07/28/19 25 026 Active TRUEplus Lancets 33G miscIndications: Type 2 diabetes 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, with long-term current use of insulin (CMS/HCC) 1 each Once per day. 60 each 07/28/19 25 Active Alcohol Swabs 70 % padsIndications: Type 2 diabetes 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, with long-term current use of insulin ([facility]) Use to test blood sugar 2 times daily 100 each 07/28/19 25 Active Blood Glucose Monitoring Suppl (FreeStyle Roberts Lite) w/Device kitIndications:T ype 2 diabetes 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, with long-term current use of insulin ([facility]) Use to test blood sugar 2 times daily 1 kit 07/28/19 25 Active Dulaglutide (Trulicity) 1.5 MG/0.5ML solution auto-injectorInd ications:Type 2 diabetes 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, with long-term current use of insulin ([facility]) Inject 1.5 mg under the skin 1 (one) time per week. 0.5 mL 6 12/14/19 25 Active metFORMIN XR (Glucophage-XR) 500 MG 24 hr tabletIndication s:Type 2 diabetes mellitus without complication, with long-term current use of insulin ([facility]) TAKE 2 TABLETS BY MOUTH EVERY MORNING 180 tablet 1 12/14/19 25 Active amLODIPine (Norvasc) 2.5 MG tabletIndication s:Essential (primary) hypertension TAKE 1 TABLET BY MOUTH IN THE MORNING 90 tablet 1 12/14/19 25 Active losartan (Cozaar) 100 MG tabletIndication s:Essential (primary) hypertension TAKE 1 TABLET BY MOUTH EVERY DAY 90 tablet 1 12/14/19 25 Active atenolol (Tenormin) 100 MG tabletIndication s:Essential (primary) hypertension TAKE 1 TABLET BY MOUTH EVERY DAY 90 tablet 1 12/14/19 25 Active aspirin (Aspirin Low Dose) 81 MG EC tablet TAKE 1 TABLET BY MOUTH EVERY DAY 90 tablet 03/13/20 23 025 Discontinued(Re order (will not trigger notification to Pharmacy)) amLODIPine (Norvasc) 2.5 MG tabletIndication s:Essential (primary) hypertension TAKE 1 TABLET BY MOUTH IN THE MORNING 90 tablet 1 06/16/20 24 025 Discontinued(Re order (will not trigger notification to Pharmacy)) atenolol (Tenormin) 100 MG tablet TAKE 1 TABLET BY MOUTH EVERY DAY 90 tablet 1 06/16/20 24 025 Discontinued(Re order (will not trigger notification to Pharmacy)) losartan (Cozaar) 100 MG tabletIndication s:Essential (primary) hypertension TAKE 1 TABLET BY MOUTH EVERY DAY 90 tablet 1 06/16/20 24 025 Discontinued(Re order (will not trigger notification to Pharmacy)) metFORMIN XR (Glucophage-XR) 500 MG 24 hr tabletIndication s:Type 2 diabetes mellitus without complication, with long-term current use of insulin (CMS/HCC) TAKE 2 TABLETS BY MOUTH EVERY MORNING 180 tablet 1 06/16/20 24 025 Discontinued(Re order (will not trigger notification to Pharmacy)) Dulaglutide (Trulicity) 0.75 MG/0.5ML solution auto-injectorInd ications:Type 2 diabetes 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, with long-term current use of insulin (CMS/HCC) Inject 0.75 mg under the skin 1 (one) time per week. 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 Obesity, morbid 08/25/2024 Assessment & Plan (08/25/2024 [...] Pt lives alone and would benefit from RN ADMISSIONS services I have asked our nurses to assist Assessment & Plan (09/29/2023 9:22 AM EST): Pt with c/o generalized joint pain, more significantly on his hips On exam, no redness sor swelling. Pt having difficulty walking as a result Plan: Uric acid, CRP, MINDY, ESR, Rheum factor Plani films hips, knees, shoulders Rheumatology referral Pt lives alone and would benefit from RN ADMISSIONS services I have asked our nurses to [...] Hernandez He developed a reaction to tramadol [facility] 07/17/2022 Assessment & Plan (07/28/2024 9:13 AM EST): PSA 07/30/2023: 1.66 Normal Colonoscopy: 12/12/2015 Dr. hernandez Assessment & Plan (07/17/2022 8:42 AM EST): BECAC: Normal 03/06/2015, PSA 01/17/2022 Colonoscopy: Dr. Hernandez [...] month f/u Hypercholesterolemia 10/31/2021 Assessment & Plan (12/13/2024 10:05 AM EDT): Pt here for a follow up Most recent lipid profile from: Lab Results Component Value Date TRIG 139 09/29/2023 TRIG 197 (H) 08/25/2023 CHOL 133 09/29/2023 CHOL 165 08/25/2023 LDLCHOLCAL 71 09/29/2023 LDLCHOLCAL 85 08/25/2023 HDL 35 (L) 09/29/2023 HDL 41 08/25/2023 Pt is on Zocor 20 mg po q hs. . For now will continue with current regimen, Repeat Lipid profile advised to try to adhere to a low cholesterol diet, counseled and educated about diet and exercise, Patient encouraged to come up with a personal goal for weight loss. Assessment & Plan (07/28/2024 9:14 AM EST): [...] Essential (primary) hypertension 10/31/2021 Assessment & Plan (12/13/2024 10:05 AM EDT): Patient is here for a f/u I suspect there is an element of white coat hypertention He is already under the care of [facility] Dr Kennedy He is on a regimen [...] Continue current regimen, no changes for now, Repeat BMP patient advised to adhere to a low sodium diet, encouraged about medication compliance, counseled about weight loss. Assessment & Plan (07/28/2024 9:08 AM EST): Patient is here for a f/u I suspect there is an element of white coat hypertention He is already under the care of [facility] Dr Kennedy He is on a regimen [...] He is already under the care of [facility] Worker Dr Kennedy He is on a regimen [...] He is already under the care of [facility] Worker Dr Kennedy He is on a regimen [...] He is already under the care of [facility] Worker Dr Kennedy He is on a regimen [...] He is already under the care of [facility] Worker Dr Kennedy He is on a regimen [...] He is already under the care of [facility] Worker Dr Kennedy He is on a regimen [...] hypertention He is under the care of [facility] Worker Dr Kennedy He is on a regimen [...] with renal complication 01/08/2012 Assessment & Plan (12/13/2024 10:22 AM EDT): Pt is here for a f/u regarding his DM He is on a regimen of Metformin XR 500 mg po 2 tabs in AM and Trulicity 0.75 once a week. Hgb A1c 12/13/2024: 6.9 from 9.9 from 10.2 Eye exam : last on record 06/17/2019 wnl. Microalbumin checked on: 10/21/2021 was: 17.3 Pt on an ARB. Foot check risk of zero Pt reports compliance with Asa 81 mg po daily Pt denies any hx of thyroid cancer in family or self, no Hx of pancreatitis Plan: Increase Trulicity 1.5 mg weekly 3 months f/u Pt advised to: adhere to diabetic diet check your blood sugars regularly check your feet on a daily basis. Assessment & Plan (08/25/2024 9:24 AM EST): [...] Encounters Date Type Department Care Team Description 12/13/2024 10:00 AM EDT Office Visit [facility] [address] [place] [phone] Jr Osborn MD Type 2 diabetes 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, with long-term current use of insulin (CMS/HCC) (Primary Dx); Essential (primary) hypertension; Hypercholesterolemia; Preventative health care; Pigmented skin lesion of uncertain behavior of upper extremity; Type 2 diabetes mellitus without complication, with long-term current use of insulin (CMS/HCC) 12/13/2024 Travel 12/12/2024 Telephone [facility] [address] [place] [address] [phone] Jr Osborn MD Chart Prep 11/15/2024 Refill [facility] [address] [place] [address] MD Type 2 diabetes 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, with long-term current use of insulin (CMS/HCC) from Last 3 Months Immunizations Immunization Administration Dates Next Due Influenza High-dose Quadriva [...] Answer Date Recorded Patient Health Questionnaire-9 Score 2 12/13/2024 Patient Health Questionnaire-9 Score 2 12/13/2024 Last PHQ-9: Questionnaire Data Not on file 0 12/13/2024 Housing Stability Answer Date Recorded What is [...] Date Recorded Patient Health Questionnaire-2 Score 0 12/13/2024 Internet Access Answer Date Recorded Internet Access [...] Sign Reading Time Taken Comments Blood Pressure 144/82 12/13/2024 10:24 AM EDT Pulse 75 12/13/2024 10:06 AM EDT Temperature 36.1 ??C (96.9 ??F) 12/13/2024 10:06 AM E DT Respiratory Rate 20 12/13/2024 10:06 AM EDT Oxygen Saturation 98% 12/13/2024 10:06 AM EDT Inhaled Oxygen Concentration - - Weight 89.4 kg (197 lb 3.2 oz) 12/13/2024 10:06 AM EDT Height 154.9 cm (5' 1 ) 12/13/2024 10:06 AM EDT Body Mass Index 37.26 12/13/2024 10:06 AM EDT Plan of Treatment Upcoming Encounters Date Type Department Care Team (Late st Contact Info) Description 03/23/2025 9:15 AM EDT Office Visit [facility] [address] [place] [address] Jr Osborn MD [address] [place] [address] Health Maintenance Due Date Last Done Comments [...] 2024 , 04/27/2022, 04/10/2021, Additional history exists Lipid Panel 09/28/2024 09/29/2023, 07/29, 01/17/2022, Additional history exists COVID-19 Vaccine ( season) 2024 04/20/2024, 12/10/2021, 06/10/2021, Additional history exists SDOH Screening 04/28/2025 04/28/2024 Diabetes: Hemoglobin A1C 06/15/2025 025, 07/28/2024, 04/28/2024, Additional history exists Alcohol/Substance Use Screening 07/28/2025 07/28/2024 Tobacco Screening 08/25/2025 08/25/2024 Colonoscopy 12/11/2025 12/12/2015 Colorectal Cancer Screening 12/11/2025 Depression Screening 12/13/2025 12/13/2024, 12/14/19 Zoster Vaccines Completed 09/02/2021, 04/26, 11/07/2014 Hepatitis C Screening Completed 03/22/2024, 024 HIB Vaccines Aged Out No longer eligi ble based on patient's age to complete this topic HPV Vaccines Aged Out No longer eligi ble based on patient's age to complete this topic IPV Vaccines Aged Out No longer eligi ble based on patient's age to complete this topic Meningococcal B Vaccine Aged Out No l onger eligible based on patient's age to complete [...] Name Priority Date/Time Associated Diagnosis Comments POCT GLYCATED HEMOGLOBIN, TOTAL Routine 12/13/2024 10:21 AM EDT Type 2 diabetes 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, with long-term current use of insulin ([facility]) POCT GLUCOSE Routine 12/13/2024 10:12 AM EDT Type 2 diabetes 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, with long-term current use of insulin (CMS/HCC) HEPATITIS PANEL, GENERAL Routine 03/22/2024 1:53 PM EDT LIPID PANEL WITH REFLEX TO DIRECT LDL Routine 09/29/2023 9:23 AM EST Essential (primary) hypertension HM COLONOSCOPY Routine 12/12/2015 from Last 3 Months or Most Recently Relevant to Health Maintenance Results * (ABNORMAL) POCT HGB A1C (12/13/2024 10:21 AM EDT) Hemoglobin A1C 6.9(A) 4.0 - 6.0 % QC Media Lot # [id number] Lot# Expiration Date Blood 12/13/2024 10:2 1 AM EDT us Jr Rosen MD POINT OF CARE TEST EN TER/EDIT ORDERABLES Final Result * (ABNORMAL) POCT Glucose (12/13/2024 10:12 AM EDT) Glucose Blood, POC 344(A) 60 - 200 mg/dL QC Media Lot # [id number] Lot# Expiration Date Blood Capillary blood specimen / Unknown 12/13/2024 10:12 AM EDT us Jr Rosen MD POINT OF CARE TEST EN TER/EDIT ORDERABLES Final Result * Hepatitis Panel, General (03/22/2024 1:53 PM EDT) Hepatitis A IgM Nonreactive Nonreactive [facility] Comment:IgM antibodies to ROSS V not detected; does not exclude earlyacute or recovered HAV infection. ~Hepatitis B Surface Antibody GRAYZONE Nonreactive [facility] Comment:GRAYZONE: 8.00 mIU/m L TO 11.99 mIU/mLTHE IMMUNE STATUS OF THE INDIVIDUAL SHOULD BE FURTHERASSESSED BY CONSIDERING OTHER FACTORS, SUCH CLINICALSTATUS, FOLLOW-UP TESTING, ASSOCIATED RISK FACTORS, AND THEUSE OF ADDITIONAL DIAGNOSTIC INFORMATION. Hepatitis B Core Antibody Nonreactive Nonreactive [facility] Hepatitis C Antibody Nonreactive Nonreactive [facility] Comment:Antibodies to HCV no t detected; does not exclude early acuteHCV infection. Hepatitis B Surface Ag Negative Negative [facility] 03/22/2024 1:53 PM EDT 03/22/2024 1:53 PM EDT us Generic External Data Provider LAB BLOOD ORDERAB LES Final Result Performing Organization Address [facility] Co de Phone Number [facility] [address] [place] [phone] * (ABNORMAL) Lipid Panel with Reflex to Direct LDL (09/29/2023 9:23 AM EST) Triglycerides 139 <150 mg/dL [facility] Comment:Desirable Triglyceri de: less than 150 mg/dLBorderline High Triglyceride 150-199 mg/dLHigh Triglyceride: 200-499 mg/dLVery High Triglyceride: greater than or equal to 5OO mg/dL Cholesterol 133 <200 mg/dL [facility] Comment:Desirable Cholestero l: less than 200 mg/dLBorderline High Cholesterol: 200-239 mg/dLHigh Cholesterol: greater than 239 mg/dL LDL Cholesterol Calculated 71 <100 mg/dL [facility] Comment:Desirable LDL: less than 100 mg/dLNear Optimal/Above Optimal LDL: 110- 129 mg/dLBorderline High LDL: 130-159 mg/dLHigh LDL: 160-189 mg/dLVery High LDL: greater than or equal to 190 mg/dL HDL Cholesterol 35(L) >40 mg/dL [facility] Comment:Desirable HDL: great er than 40 mg/dL Note: This HDL assay may give artificially low results in patients with liver disease. Blood 09/29/2023 9:23 AM EST 09/29/2023 11:37 AM EST us Jr Rosen MD LAB BLOOD ORDERABLES Final Result [facility] [address] [place] [address] [phone] * Colonoscopy (12/12/2015) Colonoscopy Normal Normal 12/12/2015 Cathy Monaco - 12/12/2015 11:20 AM EDT Recommended 10 year follow up ( see scanned notes ) us Historical Provider HEALTH MAINTENANCE Edited Result - Final from Last 3 Months or Most Recently Relevant to Health Maintenance Insurance [employer] MED[employer]ARE ADVANTAGE HMO Care Teams Technical Project Lead Relationship Specialty Start Date End Date Jr Osborn MD [address] [place] [address] PCP - General Internal Medicine 04/24/14
--- OUTSIDE RECORDS SUMMARY | 2024-12-15 08:45 | XMS_ITS | Encounter Summary ---
Author Organization [employer] Address [address] [facility] 7[address] [place] [address] Care Team Providers Care Nuclear Equipment Research Engineer Name Role Phone Jr Osborn MD Primary Care Provide r Reason for Visit * Reason Onset Date Comments Chart Prep 12/12/2024 Encounter Details Date Type Department Care Team ([facility] st Contact Info) Description 12/12/2024 Telephone [facility] [address] [place], [place] [phone] Jr Osborn MD [address] [place], [place] [phone] Chart Prep Social History Tobacco Use Types [...] Telephone Encounter - Sharla Murdock MA - 12/12/2024 1:55 PM EDT Chart Prep Labs: done Images: not applicable Vaccines due: Covid Due, Tdap Due, Hep A Due, Hep B Due, PCV20 Due, Flu Due, and RSV in Pharmacy Due Referrals: Not Applicable Screenings: Colonoscopy , Eye Exam, and Foot Exam Overdue care gaps: A1C, Glucose, PQ9, and GAD7 Chart prep for upcoming appt with Dr.Esparza mayorga. LB documented in this encounter Plan of Treatment Upcoming Encounters Date Type Department Care Team (Late st Contact Info) Description 03/23/2025 9:15 AM EDT Office Visit [facility] [address] [place] [address] Jr Osborn MD [address] [place] [address] documented as of this encounter Visit Diagnoses Not on filedocumented in this encounter Additional Health Concerns Assessment Noted Time PHQ-9 Depression Total Score: 0 08/25/19 24 10:55 AM EST documented as of this encounter Care Teams Nuclear Equipment Research Engineer Relationship Specialty Start Date End Date Jr Osborn MD [address] [place] [address] PCP - General Internal Medicine 04/24/14 documented as of this encounter
--- OUTSIDE RECORDS SUMMARY | 2024-12-15 08:45 | XMS_ITS | Encounter Summary ---
Author Organization [employer] Address [address] [place] [address] Care Team Providers Care Grinder Brake Lining Name Role Phone Jr Osborn MD Primary Care Provide r Encounter Details Date Type Department Care Team (Latest Contact Info) Description 12/13/2024 Travel Social History Tobacco Use Types Packs/Day [...] AM EDT documented as of this encounter Functional Status * Over the past 2 weeks, how often have you been bothered by any of the following problems? Question Answer Date of Assessment Author Patient Health Questionnaire-2 Score 0 11/25 10:05 AM EDT Sharla Murdock MA * Little interest or pleasure in doing things Answer Date of Assessment Author Not at all 12/13/2024 10:05 AM EDT Sharla Murdock MA * Feeling down, depressed, or hopeless Answer Date of Assessment Author Not at all 12/13/2024 10:05 AM EDT Sharla Murdock MA * Trouble falling or staying asleep, or sleeping too much Answer Date of Assessment Author Several days 12/13/2024 10:05 AM EDT Sharla Murdock MA * Feeling tired or having little energy Answer Date of Assessment Author Not at all 12/13/2024 10:05 AM EDT Sharla Murdock MA * Poor appetite or overeating Answer Date of Assessment Author Several days 12/13/2024 10:05 AM EDT Sharla Murdock MA * Feeling bad about yourself - or that you are a failure or have let yourself or your family down Answer Date of Assessment Author Not at all 12/13/2024 10:05 AM EDT Sharla Murdock MA * Trouble concentrating on things, such as reading the newspaper or watching television Answer Date of Assessment Author Not at all 12/13/2024 10:05 AM Sharla Harris MA * Moving or speaking so slowly that other people could have noticed? Or the opposite - being so fidgety or restless that you have been moving around a lot more than usual. Answer Date of Assessment Author Not at all 12/13/2024 10:05 AM Sharla Harris MA * Thoughts that you would be better off or hurting yourself in some way Answer Date of Assessment Author Not at all 12/13/2024 10:05 AM EDT Sharla Murdock MA * Patient Health Questionnaire-9 Score Answer Date of Assessment Author 2 12/13/2024 10:05 AM EDT Sharla Murdock MA * How difficult have these problems made it for you to do your work, take care of things at home, or get along with other people? Answer Date of Assessment Author Not difficult at all 12/13/2024 10:05 AM EDT Sharla Cardoso MA * Over the last 2 weeks, how often have you been bothered by any of the following problems? Question Answer Date of Assessment Author Feeling nervous, anxious, or on edge 0 11/25 10:06 AM EDT Sharla Murdock MA Not being able to stop or co ntrol worrying 0 12/13/2024 10:06 AM EDT Sharla Murdock MA Worrying too much about diff erent things 0 12/13/2024 10:06 AM EDT Sharla Murdock MA Trouble relaxing 0 12/13/2024 10:06 AM EDT Sharla Murdock MA Being so restless that it is hard to sit still 0 12/13/2024 10:06 AM EDT Sharla Murdock MA Becoming easily annoyed or irritable 0 11/25 10:06 AM EDT Sharla Murdock MA Feeling afraid as if somethi ng awful might happen 0 12/13/2024 10:06 AM EDT Sharla Murdock MA DEMETRIS-7 Total Score 0 12/13/2024 10:06 AM EDT Sharla Murdock MA documented as of this encounter Plan of Treatment Upcoming Encounters Date Type Department Care Team (Late st Contact Info) Description 03/23/2025 9:15 AM EDT Office Visit [facility] [address] [place], [place] [phone] Jr Osborn MD [address] [place] [address] documented as of this encounter Visit Diagnoses Not on filedocumented in this encounter Additional Health Concerns Assessment Noted Time PHQ-9 Depression Total Score: 2 05/20/20 25 10:05 AM EDT documented as of this encounter Care Teams Grinder Brake Lining Relationship Specialty Start Date End Date Jr Osborn MD [address] [place] [address] PCP - General Internal Medicine 04/24/14 documented as of this encounter
--- OUTSIDE RECORDS SUMMARY | 2024-12-15 08:45 | XMS_ITS | Encounter Summary ---
Author Organization [employer] Address [address] [place] [address] Care Team Providers Care Brazer Helper Induction Name Role Phone Jr Osborn MD Primary Care Provide r Encounter Details Date Type Department Care Team ([facility] st Contact Info) Description 08/25/2024 Orders Only [facility] [address], [place] [phone] JoshiFrancesco Pate MD [address] [place] [address] Social History Tobacco Use Types Packs/Day Years [...] Description 03/23/2025 9:15 AM EDT Office Visit [facility] [address] [place] [address] Jr Osborn MD [address] [place] [address] documented as of this encounter Visit Diagnoses Not on filedocumented in this encounter Additional Health Concerns Assessment Noted Time PHQ-9 Depression Total Score: 0 08/25/19 24 10:55 AM EST documented as of this encounter Care Teams Brazer Helper Induction Relationship Specialty Start Date End Date Jr Osborn MD [address] [place] [address] PCP - General Internal Medicine 04/24/14 documented as of this encounter
--- OUTSIDE RECORDS SUMMARY | 2024-12-15 08:45 | XMS_ITS | Encounter Summary ---
Author Organization [employer] Address [address] [facility] 7[address] [place] [address] Care Team Providers Care Outbound Supervisor Name Role Phone Jr Osborn MD Primary Care Provide r Reason for Referral * Consultation (Routine) - Authorized Specialty Diagnoses / Procedures Referred By Jackie francisco Referred To Contact Family Medicine Diagnoses Pigmented skin lesion of uncertain behavior of upper extremity Jr Osborn MD [address] [place] [address] Phone: tel: fax: Referral ID Status Reason Start Date Expiration Date Visits Requested Visits Authorized [id number] Authorized Specialty Services Required 12/13/2024 12/13/2025 1 1 * Medications - Closed Specialty Diagnoses / Procedures Referred By Jackie francisco Referred To Contact Diagnoses Type 2 diabetes 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, with long-term current use of insulin ([facility]) Jr Osborn MD [address] [place] [address] Phone: tel: fax: Referral ID Status Reason Start Date Expiration Date Visits Re quested Visits Authorized [id number] Closed 1 1 Reason for Visit * Reason Comments Diabetes Pt's Freestyle monit ors haven't been working, one is brand new and pt is still having issues with it. Hasn't been checking sugar daily. Encounter Details Date Type Department Care Team (Late st Contact Info) Description 12/13/2024 10:00 AM EDT Office Visit [facility] MEDICINE [address] [place] [phone] Jr Osborn MD [address] [place] [address] Type 2 diabetes 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, with long-term current use of insulin (CMS/HCC) (Primary Dx); Essential (primary) hypertension; Hypercholesterolemia; Preventative health care; Pigmented skin lesion of uncertain behavior of upper extremity; Type 2 diabetes mellitus without complication, with long-term current use of insulin (CMS/HCC) Social History Tobacco Use Types Packs/Day Years [...] 12/13/2024 10:06 AM E DT Respiratory Rate 12/13/2024 10:06 AM EDT Oxygen Saturation 98% 12/13/2024 10:06 AM EDT Inhaled Oxygen Concentration - - Weight 89.4 kg (197 lb 3.2 oz) 12/13/2024 10:06 AM EDT Height 154.9 cm (5' 1 ) 12/13/2024 10:06 AM EDT Body Mass Index 37.26 12/13/2024 10:06 AM EDT documented in this encounter Functional Status * Over the [...] 10:05 AM EDT Sharla Murdock MA * Moving or speaking so slowly that other people could have noticed? Or the opposite - being so fidgety or restless that you have been moving around a lot more than usual. Answer Date of Assessment Author Not at all 12/13/2024 10:05 AM EDT Sharla Murdock MA * Thoughts that you would be better off or hurting yourself in some way Answer Date of Assessment Author Not at all 12/13/2024 10:05 AM Sharla Harris MA * Patient Health Questionnaire-9 Score Answer [...] co ntrol worrying 0 12/13/2024 10:06 AM Sharla Harris MA Worrying too much about diff erent things 0 12/13/2024 10:06 AM EDT Sharla Murdock MA Trouble relaxing 0 12/13/2024 10:06 AM JOET Sharla Murdock MA Being so restless that it is hard to sit still 0 12/13/2024 10:06 AM Sharla Harris MA Becoming easily annoyed or irritable 0 11/25 10:06 AM JOET Sharla Murdock MA Feeling afraid as if somethi ng awful might happen 0 12/13/2024 10:06 AM Sharla Harris MA DEMETRIS-7 Total Score 0 12/13/2024 10:06 AM EDT Sharla Murdock MA documented as of this encounter Progress Notes * Jr Rosen MD - 12/13/2024 10:00 AM EDT SUBJECTIVE Christopher Rodriguez is a 74 y.o. male who presents for Diabetes (Pt's Freestyle monitors haven't beenworking, one is brand new and pt is still having issues with it. Hasn't been checking sugar daily. ). Diabetes He presents for his follow-up diabetic visit. He has type 2 diabetes mellitus. Pertinent negatives for hypoglycemia include no headaches. Pertinent negatives for diabetes include no chest pain. Review of Systems Constitutional: Negative for fever. HENT: Negative for sore throat. Respiratory: Negative for cough and shortness of breath. Cardiovascular: Negative for chest pain. Gastrointestinal: Negative for abdominal pain. Neurological: Negative for headaches. Allergies[1] OBJECTIVE Vitals: 12/13/24 1006 12/13/24 1024 BP: (!) 152/96 (!) 144/82 BP Location: Left arm Left arm Patient Position: Sitting Sitting BP Cuff Size: Adult Pulse: 75 Resp: 20 Temp: 96.9 ??F (36.1 ??C) TempSrc: Temporal SpO2: 98% Weight: 197 lb 3.2 oz (89.4 kg) Height: 5' 1 (1.549 m) Physical Exam Vitals reviewed. Constitutional: Appearance: [...] a daily basis. Relevant Medications Dulaglutide (Trulicity) 1.5 MG/0.5ML solution auto-injector metFORMIN XR (Glucophage-XR) 500 MG 24 hr tablet losartan (Cozaar) 100 MG tablet Other Relevant Orders POCT Glucose (Completed) POCT HGB A1C (Completed) Essential (primary) hypertension Patient is here for a f/u I suspect there is an element of white coat hypertention He is already under the care of Railroad Accountant Dr Kennedy He is on a regimen [...] about medication compliance, counseled about weight loss. Relevant Medications amLODIPine (Norvasc) 2.5 MG tablet losartan (Cozaar) 100 MG tablet atenolol (Tenormin) 100 MG tablet Other Relevant Orders Comprehensive Metabolic Panel Hypercholesterolemia Pt here for a follow up Most [...] with a personal goal for weight loss. Relevant Medications Dulaglutide (Trulicity) 1.5 MG/0.5ML solution auto-injector metFORMIN XR (Glucophage-XR) 500 MG 24 hr tablet Other Relevant Orders Lipid Panel, Standard Preventative health care Relevant Orders PSA, Screen Pigmented skin lesion of uncertain behavior of upper extremity Small tiny lesion left forearm not going away Plan: Derm referral for consideration of excision and pathology eval. Relevant Orders Referral to [facility] Derm Skin Adult Other Visit Diagnoses Type 2 diabetes mellitus without complication, with long-term current use of insulin ([facility]) Relevant Medications Dulaglutide (Trulicity) 1.5 MG/0.5ML solution auto-injector metFORMIN XR (Glucophage-XR) 500 MG 24 hr tablet losartan (Cozaar) 100 MG tablet No future appointments. [1] Allergies Allergen Reactions Neo Inhibitors Cough Tramadol Nausea Only Other reaction(s): Vomiting documented in this encounter Miscellaneous Notes * Assessment & Plan Note - Jr Rosen MD - 12/13/2024 10:20 AM EDT Associated Problem(s): Pigmented skin lesion of uncertain behavior of upper extremity Small tiny lesion left forearm not going away Plan: Derm referral for consideration of excision and pathology eval. * Assessment & Plan Note - Jr Rosen MD - 12/13/2024 10:05 AM EDT Associated Problem(s): Hypercholesterolemia Pt here for a follow up Most [...] Plan Note - Jr Rosen MD - 12/13/2024 10:05 AM EDT Associated Problem(s): Essential (primary) hypertension Patient is here for a f/u I suspect there is an element of white coat hypertention He is already under the care of Railroad Accountant Dr Kennedy He is on a regimen [...] Plan Note - Jr Rosen MD - 12/13/2024 10:04 AM EDT Associated Problem(s): Type 2 diabetes mellitus with [...] 9:15 AM EDT Office Visit [facility] MEDICINE [address] [place] [phone] Jr Osborn MD [address] [place] [address] Scheduled Orders Name Type Priority Associated Diagnoses Orde r Schedule Lipid Panel, Standard Lab Routine Hypercholesterolemia Ordered: 12/13/2024 Comprehensive Metabolic Panel Lab Routine Essential (primary) hypertension Ordered: 12/13/2024 PSA, Screen Lab Routine Preventative health care Ordered: 12/13/2024 Scheduled Referrals Name Type Priority Associated Diagnoses Orde r Schedule Referral to [facility] Derm Skin Adult Outpatient Referral Routine Pigmented skin lesion of uncertain behavior of upper extremity Expected: 12/13/2024 (Approximate), Expires: 12/13/2025 documented as of this encounter Procedures Procedure Name Priority Date/Time Associated Diagnosis Comments POCT GLYCATED HEMOGLOBIN, TOTAL Routine 12/13/2024 10:21 AM EDT Type 2 diabetes 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, with long-term current use of insulin ([facility]) POCT GLUCOSE Routine 12/13/2024 10:12 AM EDT Type 2 diabetes 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, with long-term current use of insulin ([facility]) documented in this encounter Results * (ABNORMAL) POCT HGB A1C (12/13/2024 [...] specimen / Unknown 12/13/2024 10:12 AM EDT Jr Rosen MD POINT OF CARE TEST EN TER/EDIT ORDERABLES Final Result documented in this encounter Visit Diagnoses Diagnosis Type 2 diabetes 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, with long-term current use of insulin ([facility])- Primary Essential (primary) hypertension Unspecified essential hypertension Hypercholesterolemia Pure hypercholesterolemia Preventative health care Routine general medical examination at a health care facility Pigmented skin lesion of uncertain behavior of upper extremity Type 2 diabetes mellitus without complication, with long-term current use of insulin ([facility]) documented in this encounter Additional Health Concerns Assessment Noted Time PHQ-9 Depression Total Score: 2 12/14/19 25 10:05 AM EDT documented as of this encounter Care Teams Outbound Supervisor Relationship Specialty Start Date End Date Jr Osborn MD [address] [place] [address] PCP - General Internal Medicine 04/24/14 documented as of this encounter
[2024-12-15 12:30] LABS: Prostate Specific Antigen Scr 2.38 ng/mL (<0.05-4.0)
[2024-12-15 12:34] LABS: Alanine Aminotransferase 30 U/L (0-40); Albumin Level 4.1 g/dL (3.5-5.0); Alkaline Phosphatase 62 U/L (39-117); Anion Gap 11 (12-20); Aspartate Amino Transferase 26 U/L (5-37); Bilirubin Total 0.3 mg/dL (0.0-1.0); Blood Urea Nitrogen 23 mg/dL (9-16); Calcium 9.5 mg/dL (8.4-10.2); Carbon Dioxide 23 mmol/L (22-29); Chloride 112 mmol/L (96-108); Cholesterol 129 mg/dL (<200); Estimated Glomerular Filt Rate 51; Glucose Random 142 mg/dL (60-115); HDL Cholesterol 33 mg/dL (>40); LDL Cholesterol Calculated 73 mg/dL (<100); Potassium 4.1 mmol/L (3.3-5.1); Sodium 142 mmol/L (135-145); Total Protein 7.6 g/dL (6.5-8.0); Triglycerides 116 mg/dL (<150)
== END 2024-12-15 08:32 | disposition home or self-care (01) ==
LOC: HO.HHCL 08:31
PROVIDERS: Visit Provider Internal Medicine
DX: Z00.00 Encounter for general adult medical examination without abnormal findings (principal); I10 Essential (primary) hypertension; E78.00 Pure hypercholesterolemia, unspecified; Z12.5 Encounter for screening for malignant neoplasm of prostate
CPT/HCPCS: 36415; 80053; 80061; 84153

== ENCOUNTER 2025-05-30 09:58 | Outpatient (REF) | payer MEDICARE, SELFPAY ==
--- NOTE | ~2025-05-30 | XR_ITS ---
EXAMINATION: XR THORACIC SPINE CLINICAL INFORMATION: PAIN COMPARISON: July 17, 2022. TECHNIQUE: AP lateral and swimmer's projection. FINDINGS: Multilevel marginal osteophyte formation and endplate sclerosis with decreased intervertebral disc height from the mid to lower thoracic spine. No acute cortical disruption or malalignment. No lytic or blastic lesions. XR/XR lumbar spine 2-3V IMPRESSION: Multilevel spondylosis, thoracolumbar spine. EXAMINATION: XR LUMBOSACRAL SPINE CLINICAL INFORMATION: PAIN COMPARISON: Correlated to CT abdomen and pelvis dated January 04, 2023 TECHNIQUE: AP and lateral views. FINDINGS: Multilevel endplate sclerosis and small marginal osteophyte formation. No acute cortical disruption or malalignment. Loss of the physiologic lordosis. Facet joint hypertrophy at L5-S1. No lytic or blastic lesions. Vascular calcifications, aorta and iliac arteries. IMPRESSION: Multilevel spondylosis without acute fracture or listhesis. Atherosclerosis disease. Electronically signed by: Robin Tcuker MD 05/30/2025 10:44 AM MICHAEL
--- NOTE | ~2025-05-30 | XR_ITS ---
EXAMINATION: XR THORACIC SPINE CLINICAL INFORMATION: PAIN COMPARISON: July 17, 2022. TECHNIQUE: AP lateral and swimmer's projection. FINDINGS: Multilevel marginal osteophyte formation and endplate sclerosis with decreased intervertebral disc height from the mid to lower thoracic spine. No acute cortical disruption or malalignment. No lytic or blastic lesions. XR/XR thoracic spine 2V IMPRESSION: Multilevel spondylosis, thoracolumbar spine. EXAMINATION: XR LUMBOSACRAL SPINE CLINICAL INFORMATION: PAIN COMPARISON: Correlated to CT abdomen and pelvis dated January 04, 2023 TECHNIQUE: AP and lateral views. FINDINGS: Multilevel endplate sclerosis and small marginal osteophyte formation. No acute cortical disruption or malalignment. Loss of the physiologic lordosis. Facet joint hypertrophy at L5-S1. No lytic or blastic lesions. Vascular calcifications, aorta and iliac arteries. IMPRESSION: Multilevel spondylosis without acute fracture or listhesis. Atherosclerosis disease. Electronically signed by: Robin Tucker MD 05/30/2025 10:44 AM MICHAEL
--- OUTSIDE RECORDS SUMMARY | 2025-05-30 09:00 | XMS_ITS | Encounter Summary ---
Author Organization [employer] Address [address] [place] [address] [address] [place] [address] Care Team Providers Care Swimming Pool Installer Name Role Phone Jr Osborn MD Primary Care Provide r Reason for Referral * Consultation (Routine) - Closed Specialty Diagnoses / Procedures Referred By Contac t Referred To Contact Physical Therapy Diagnoses Chronic right-sided thoracic back pain Jr Osborn MD [address] [place] [phone] Phone: tel: fax: [facility] Physical Therapy [address] [place] [address] Phone: tel: fax: Referral ID Status Reason Start Date Expiration Date V isits Requested Visits Authorized [id number] Closed Specialty Services Required 05/30/2025 05/30/2026 1 1 Reason for Visit * Reason Comments Follow-up Encounter Details Date Type Department Care Team (Late st Contact Info) Description 05/30/2025 9:00 AM EST Office Visit [facility] MEDICINE [address] [place] [address] [phone] Jr Osborn MD [address] [place], [place] [phone] Type 2 diabetes 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, with long-term current use of insulin (HCC) (Primary Dx); Essential (primary) hypertension; Hypercholesterolemia; Chronic right-sided thoracic back pain; Preventative health care Social History Tobacco Use Types Packs/Day Years [...] Access Answer Date Recorded Internet Access Q1 Yes 03/15/2025 Internet Access Q2 Not on file 03/15/2025 Sex and Gender Information Value Date Recorded Sex Assigned at Male 05/26/2022 10:19 AM EDT Legal Sex Male 10:19 AM EDT Gender Identity Male 05/26/2022 10:19 AM EDT Sexual Orientation Choose not to disclose 2021 10:19 AM EDT documented as of this encounter Last Filed Vital Signs Vital Sign Reading Time Taken Comments Blood Pressure 128/80 05/30/2025 9:05 AM EST Pulse 83 05/30/2025 9:05 AM EST Temperature 36.3 C (97.4 F) 05/30/2025 9:05 AM EST Respiratory Rate 20 05/30/2025 9:05 AM EST Oxygen Saturation 98% 05/30/2025 9:05 AM EST Inhaled Oxygen Concentration - - Weight 87.5 kg (192 lb 12.8 oz) 05/30/2025 9:05 AM EST Height 160 cm (5' 3 ) 05/30/2025 9:05 AM EST Body Mass Index 34.15 05/30/2025 9:05 AM EST documented in this encounter Progress Notes * Jr Rosen MD - 05/30/2025 9:00 AM EST SUBJECTIVE Christopher Rodriguez is a 74 y.o. male who presents for Follow-up. Diabetes He presents for his follow-up diabetic visit. He has type 2 diabetes mellitus. Pertinent negatives for hypoglycemia include no headaches. Pertinent negatives for diabetes include no chest pain. Hypertension This is a chronic problem. Pertinent negatives include no chest pain, headaches or shortness of breath. Review of Systems Constitutional: Negative for fever. HENT: Negative for sore throat. Respiratory: Negative for cough and shortness of breath. Cardiovascular: Negative for chest pain. Gastrointestinal: Negative for abdominal pain. Neurological: Negative for headaches. Allergies[1] OBJECTIVE Vitals: 05/30/25 0905 BP: 128/80 BP Location: Left arm Patient Position: Sitting BP Cuff Size: Large adult Pulse: 83 Resp: 20 Temp: 97.4 ??F (36.3 ??C) TempSrc: Oral SpO2: 98% Weight: 192 lb 12.8 oz (87.5 kg) Height: 5' 3 (1.6 m) Physical Exam Vitals reviewed. Constitutional: Appearance: Normal appearance. HENT: Head: Normocephalic and atraumatic. Right Ear: External ear normal. Left Ear: External ear normal. Nose: Nose normal. Mouth/Throat: Mouth: Mucous membranes are moist. Eyes: Conjunctiva/sclera: Conjunctivae normal. Cardiovascular: Rate and Rhythm: Normal rate and regular rhythm. Pulmonary: Effort: Pulmonary effort is normal. Breath sounds: Normal breath sounds. Musculoskeletal: Thoracic back: Spasms present. Skin: General: Skin is warm. Neurological: Mental Status: He is alert. Mental status is at baseline. Assessment/Plan Problem List Items Addressed This Visit Type 2 diabetes mellitus with renal complication (HCC) - Primary Pt is here for a f/u regarding his DM He is on a regimen of Metformin XR 500 mg po 2 tabs in AM, Trulicity 1.5 mg once a week. Hgb A1c 05/30/2025: 6.2 from 6.9 Eye exam : last on record 12/28/2024 wnl. Microalbumin checked on: 08/25/2024 was: 1,179 Pt on an ARB. Foot check risk of zero Pt reports compliance with Asa 81 mg po daily Pt denies any hx of thyroid cancer in family or self, no Hx of pancreatitis Plan: Continue current regimen 3 months f/u Pt advised to: adhere to diabetic diet check your blood sugars regularly check your feet on a daily basis. Relevant Medications simvastatin (Zocor) 20 MG tablet Other Relevant Orders POCT Glucose (Completed) POCT Hgb A1c (Completed) POCT Urinalysis (Completed) Essential (primary) hypertension Patient is here for a f/u BP stable He is under the care of Interventional Physician Dr Kennedy He is on a regimen of: Atenolol 100 mg po daily , Cozaar 100 mg po daily and Norvasc 2.5 mg po daily Most recent electrolytes, Bun and Creatinine done on: Lab Results Component Value Date NA 142 12/15/2024 NA 141 03/22/2024 K 4.1 12/15/2024 K 4.5 03/22/2024 CL 112 (H) 12/15/2024 CL 110 (H) 03/22/2024 BUN 23 (H) 12/15/2024 BUN 29 (H) 03/22/2024 CREATININE 1.37 12/15/2024 CREATININE 1.54 (H) 03/22/2024 Plan: Continue current regimen, no changes for now. patient advised to adhere to a low sodium diet, encouraged about medication compliance, counseled about weight loss. Hypercholesterolemia Pt here for a follow up Most recent lipid profile from: Lab Results Component Value Date TRIG 116 12/15/2024 TRIG 139 09/29/2023 CHOL 129 12/15/2024 CHOL 133 09/29/2023 LDLCHOLCAL 73 12/15/2024 LDLCHOLCAL 71 09/29/2023 HDL 33 (L) 12/15/2024 HDL 35 (L) 09/29/2023 Pt is on Zocor 20 mg po q hs. . For now will continue with current regimen. advised to try to adhere to a low cholesterol diet, counseled and educated about diet and exercise,Patient encouraged to come up with a personal goal for weight loss. Relevant Medications simvastatin (Zocor) 20 MG tablet Chronic right-sided thoracic back pain Patient with c/o posterior back pain for > 9 months Worse with movement , better at rest Unable to take NSAIDS Plan: Plain films, PT. Declines to take Muscle relaxant Relevant Orders XR Thoracic Spine 2 Views XR Lumbar Spine 2-3 Views Referral to Physical Therapy Preventative health care PSA 12/15/2024 Normal Colonoscopy: 12/12/2015 Dr. Iraheta. FIT 05/02/2025 Negative Future Appointments Date Time Provider Department Center 07/07/2025 10:00 AM Dayami Macdonald MD MEDICINE [facility] [1] Allergies Allergen Reactions Neo Inhibitors Cough Tramadol Nausea Only Other reaction(s): Vomiting documented in this encounter Miscellaneous Notes * Assessment & Plan Note - Jr Rosen MD - 05/30/2025 9:41 AM EST Associated Problem(s): Chronic right-sided thoracic back pain Patient with c/o posterior back pain for > 9 months Worse with movement , better at rest Unable to take NSAIDS Plan: Plain films, PT. Declines to take Muscle relaxant * Assessment & Plan Note - Jr Rosen MD - 05/30/2025 9:11 AM EST Associated Problem(s): Preventative health care PSA 12/15/2024 Normal Colonoscopy: 12/12/2015 Dr. Iraheta. FIT 05/02/2025 Negative * Assessment & Plan Note - Jr Rosen MD - 05/30/2025 9:10 AM EST Associated Problem(s): Hypercholesterolemia Pt here for a follow up Most recent lipid profile from: Lab Results Component Value Date TRIG 116 12/15/2024 TRIG 139 09/29/2023 CHOL 129 12/15/2024 CHOL 133 09/29/2023 LDLCHOLCAL 73 12/15/2024 LDLCHOLCAL 71 09/29/2023 HDL 33 (L) 12/15/2024 HDL 35 (L) 09/29/2023 Pt is on Zocor 20 mg po q hs. . For now will continue with current regimen. advised to try to adhere to a low cholesterol diet, counseled and educated about diet and exercise,Patient encouraged to come up with a personal goal for weight loss. * Assessment & Plan Note - Jr Rosen MD - 05/30/2025 9:09 AM EST Associated Problem(s): Essential (primary) hypertension Patient is here for a f/u BP stable He is under the care of Interventional Physician Dr Kennedy He is on a regimen of: Atenolol 100 mg po daily , Cozaar 100 mg po daily and Norvasc 2.5 mg po daily Most recent electrolytes, Bun and Creatinine done on: Lab Results Component Value Date NA 142 12/15/2024 NA 141 03/22/2024 K 4.1 12/15/2024 K 4.5 03/22/2024 CL 112 (H) 12/15/2024 CL 110 (H) 03/22/2024 BUN 23 (H) 12/15/2024 BUN 29 (H) 03/22/2024 CREATININE 1.37 12/15/2024 CREATININE 1.54 (H) 03/22/2024 Plan: Continue current regimen, no changes for now. patient advised to adhere to a low sodium diet, encouraged about medication compliance, counseled about weight loss. * Assessment & Plan Note - Jr Rosen MD - 05/30/2025 9:08 AM EST Associated Problem(s): Type 2 diabetes mellitus with renal complication (HCC) Pt is here for a f/u regarding his DM He is on a regimen of Metformin XR 500 mg po 2 tabs in AM, Trulicity 1.5 mg once a week. Hgb A1c 05/30/2025: 6.2 from 6.9 Eye exam : last on record 12/28/2024 wnl. Microalbumin checked on: 08/25/2024 was: 1,179 Pt on an ARB. Foot check risk [...] Care Team (Late st Contact Info) Description 07/07/2025 10:00 AM EST Office Visit [facility] MEDICINE [address] [place] [address] Dayami Macdonald MD [address] [place] [address] Scheduled Orders Name Type Priority Associated Diagnoses Orde r Schedule XR Thoracic Spine 2 Views Imaging Routine Chronic right-sided thoracic back pain Expected: 05/30/2025, Expires: 05/30/2026 XR Lumbar Spine 2-3 Views Imaging Routine Chronic right-sided thoracic back pain Ordered: 05/30/2025 Scheduled Referrals Name Type Priority Associated Diagnoses Orde r Schedule Referral to Physical Therapy Outpatient Referral Routine Chronic right-sided thoracic back pain Expected: 05/30/2025 (Approximate), Expires: 05/30/2026 documented as of this encounter Procedures Procedure Name Priority Date/Time Associated Diagnosis Comments POCT URINALYSIS DIPSTICK Routine 05/30/2025 9:43 AM EST Type 2 diabetes 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, with long-term current use of insulin (HCC) POCT GLYCATED HEMOGLOBIN, TOTAL Routine 05/30/2025 9:33 AM EST Type 2 diabetes 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, with long-term current use of insulin (HCC) POCT GLUCOSE Routine 05/30/2025 9:21 AM EST Type 2 diabetes 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, with long-term current use of insulin (HCC) documented in this encounter Results * POCT Urinalysis (05/30/2025 9:43 AM EST) Color, UA Yellow Clarity, UA Clear Glucose, UA Negative Bilirubin, UA Negative Ketones, UA Negative Spec Grav, UA 1.030 Blood, UA Negative Negative, None Detected pH, UA 5.5 Protein, UA 2+ 125++ Urobilinogen, UA 0.2 Leukocytes, UA Negative Negative, Rare, Trace Nitrite, UA Negative Negative, None Detected QC Media Lot # [id number] Lot# Expiration Date 63,026 Urine (Urine, Random) 05/30/2025 9:43 AM EST Jr Rosen MD POINT OF CARE TEST EN TER/EDIT ORDERABLES Final Result * (ABNORMAL) POCT Hgb A1c (05/30/2025 9:33 AM EST) Hemoglobin A1C 6.2(A) 4.0 - 5.7 % QC Media Lot # [id number] Lot# Expiration Date 51,227 Blood 05/30/2025 9:33 AM EST Jr Rosen MD POINT OF CARE TEST EN TER/EDIT ORDERABLES Final Result * POCT Glucose (05/30/2025 9:21 AM EST) Glucose Blood, POC 107 60 - 200 mg/dL QC Media Lot # [id number] Lot# Expiration Date 31,126 Blood Capillary blood specimen / Unknown 05/30/2025 9:21 AM EST us Jr Rosen MD POINT OF CARE TEST EN TER/EDIT ORDERABLES Final Result documented in this encounter Visit Diagnoses Diagnosis Type 2 diabetes 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, with long-term current use of insulin (HCC)- Primary Essential (primary) hypertension Unspecified essential hypertension Hypercholesterolemia Pure hypercholesterolemia Chronic right-sided thoracic back pain Preventative health care Routine general medical examination at a health care facility documented in this encounter Additional Health Concerns Assessment Noted Time PHQ-9 Depression Total Score: 2 12/14/19 25 10:05 AM EDT documented as of this encounter Care Teams Swimming Pool Installer Relationship Specialty Start Date End Date Jr Osborn MD [address] [place] [id number] PCP - General Internal Medicine 04/24/14 documented as of this encounter
--- OUTSIDE RECORDS SUMMARY | 2025-05-30 11:28 | XMS_ITS | Encounter Summary ---
Author Organization [employer] Address [address] [facility] [address]t [place] [address] Care Team Providers Care Family Service Center Director Name Role Phone Jr Osborn MD Primary Care Provide r Encounter Details Date Type Department Care Team ([facility] st Contact Info) Description 08/25/2024 Orders Only [facility] MED & PEDS [address] [place], [place] [phone] JoshiFrancesco Pate MD [address] [place] [address] Social History Tobacco Use Types Packs/Day Years [...] Description 07/07/2025 10:00 AM EST Office Visit [facility] MEDICINE [address] [place] [address] Dayami Macdonald MD [address] [place] [address] documented as of this encounter Visit Diagnoses Not on filedocumented in this encounter Additional Health Concerns Assessment Noted Time PHQ-9 Depression Total Score: 0 08/25/19 24 10:55 AM EST documented as of this encounter Care Teams Family Service Center Director Relationship Specialty Start Date End Date Jr Osborn MD [address] [place] [address] PCP - General Internal Medicine 04/24/14 documented as of this encounter
--- OUTSIDE RECORDS SUMMARY | 2025-05-30 11:28 | XMS_ITS | Encounter Summary ---
Author Organization [employer] Address [address] [facility] 7t [place] [address] Care Team Providers Care Business Law Professor Name Role Phone Jr Osborn MD Primary Care Provide r Reason for Visit * Reason Comments Med Refill Encounter Details Date Type Department Care Team ([facility] st Contact Info) Description 06/16/2024 Refill [facility] [address] [place] [address] Fawn Esparza MD [address] [place] [address] Essential (primary) hypertension; Type 2 diabetes mellitus without complication, with long-term current use of insulin ([facility]) Social History Tobacco Use Types Packs/Day Years Used Date Smoking Tobacco: Never Passive Smoke Exposure: Never Smokeless Tobacco: Never Depression Answer Date Recorded Patient Health Questionnaire-9 Score 0 08/25/2023 Patient Health Questionnaire-9 Score 0 08/25/2023 Last PHQ-9: Questionnaire Data Not on file 0 08/25/2023 Housing Stability Answer Date Recorded What is your housing situation today? I have sofiamyrna delgadillo 04/28/[address] you [...] Description 07/07/2025 10:00 AM EST Office Visit [facility] MED[facility]INE [address] [place] [address] Dayami Macdonald MD [address] [place] [address] documented as of this encounter Visit Diagnoses Diagnosis Essential (primary) hypertension Unspecified essential hypertension Type 2 diabetes mellitus without complication, with long-term current use of insulin (HCC) documented in this encounter Additional Health Concerns Assessment Noted Time PHQ-9 Depression Total Score: 0 08/25/19 24 10:55 AM EST documented as of this encounter Care Teams Business Law Professor Relationship Specialty Start Date End Date Jr Osborn MD [address] [place] [address] PCP - General Internal Medicine 04/24/14 documented as of this encounter
--- OUTSIDE RECORDS SUMMARY | 2025-05-30 11:28 | XMS_ITS | Encounter Summary ---
Author Organization [employer] Address [address] [facility] 7t [place] [address] Care Team Providers Care Traffic Lieutenant Name Role Phone Jr Osborn MD Primary Care Provide r Reason for Visit * Reason Onset Date Comments Med Refill 11/30/2023 Encounter Details Date Type Department Care Team ([facility] st Contact Info) Description 11/30/2023 Telephone [facility] MED[facility]INE [address] [place], [place] [phone] Jr Osborn MD [address] [place], [place] [phone] Med Refill Social History Tobacco Use Types [...] 15 MG tablet To be sent to: [id number] [id number] [facility] documented in this encounter Plan of Treatment Upcoming Encounters Date Type Department Care Team (Late st Contact Info) Description 07/07/2025 10:00 AM EST Office Visit [facility] MED[facility]INE [address] [place] [address] Dayami Macdonald MD [address] [place] [address] documented as of this encounter Visit Diagnoses Not on filedocumented in this encounter Additional Health Concerns Assessment Noted Time PHQ-9 Depression Total Score: 0 08/25/19 10:55 AM EST documented as of this encounter Care Teams Traffic Lieutenant Relationship Specialty Start Date End Date Jr Osborn MD [address] [place] [address] PCP - General Internal Medicine 04/24/14 documented as of this encounter
--- OUTSIDE RECORDS SUMMARY | 2025-05-30 11:28 | XMS_ITS | Patient Health Record ---
Author Organization [facility] Address [address] [place] [address] Care Team Providers Care Mysql Developer Name Role Phone Nicolás Rosen MD, Jr Primary Care Provide r Aneesh Lu Unavailable [phone] Reason For Referral No Information Medications Medication SIG (Take, Route, Frequency, Duration) Notes Start Date End Date Status Losartan Potassium 50 MG 1 tablet Orally Once a day Active atenolol 50mg 1 tablet Oral twice a day Active zocor 20 mg 1 tablet Oral once a day in evening Active Aspirin EC 81 MG 1 tablet Orally Active metFORMIN HCl 500 MG 1 tablet with meals Orally Twice a day Active Immunizations Vaccine Route Administration Date Status Comme nts Flu vaccine no Preserv 3 and > Unknown 05/27/2014 Admin istered Problems Problem Type SNOMED Code ICD Code Onset Dates Problem Status W/U Status Risk Notes Problem Screening for malignant neoplasm of colon (901152585) Encounter for screening for malignant neoplasm of colon (Z12.11) Active confirmed Problem Screening for malignant neoplasm of rectum (605224021) Encounter for screening for malignant neoplasm of rectum (Z12.12) Active confirmed Problem Preprocedural examination (300434405914352) Preprocedural examination (Z01.818) Active confirmed Problem Long-term current use of antiplatelet drug (275965726563899) Long-term use of aspirin therapy (Z79.82) Active confirmed Plan Of Treatment Future Test Test Name Order Date COLONOSCOPY 10/04/2015 Insurance Providers Payer Name Payer Address Payer Phone Subscriber Number Group Number Insured Name Patient Relationship to Insured Coverage Start Date Coverage End Date MEDICARE OF [place] [address] [place] [address] [id number] SUSI SALINAS Self - patient is the insured [facility] [address] [address] [place], [place] [phone] [id number] SUSI SALINAS Self - patient is the insured Medical (General) History Medical History History ICD Code Screening colonoscopy 09-08-2005--hyperpl astic polyps, diverticulosis Hypertension Denies [place],CVA,Lung disease,renal disease NIDDM Hypercholesterolemia Gout Surgical History Surgery Date(Month/Year) Right inguinal hernia surgery
--- OUTSIDE RECORDS SUMMARY | 2025-05-30 11:28 | XMS_ITS | Encounter Summary ---
Author Organization [employer] Address [address] [facility] [address] 7[address] [place] [address] Care Team Providers Care Tie Fastener Name Role Phone Jr Osobrn MD Primary Care Provide r Encounter Details Date Type Department Care Team (Latest Contact Info) Description 05/30/2025 Travel Social History Tobacco Use Types Packs/Day [...] Description 07/07/2025 10:00 AM EST Office Visit [facility] MED[facility]INE [address] [place] [address] Dayami Macdonald MD 230 [place] [address] documented as of this encounter Visit Diagnoses Not on filedocumented in this encounter Additional Health Concerns Assessment Noted Time PHQ-9 Depression Total Score: 2 12/14/19 25 10:05 AM EDT documented as of this encounter Care Teams Tie Fastener Relationship Specialty Start Date End Date Jr Osborn MD [address] [place] [address] PCP - General Internal Medicine 04/24/14 documented as of this encounter
--- OUTSIDE RECORDS SUMMARY | 2025-05-30 11:28 | XMS_ITS | Clinical Summary ---
Author Organization [facility] Address [address] [place] [address] Care Team Providers Care Repeater Operator Name Role Phone Jr Monzon MD [...] disease 10/31/2021 Alcoholism 06/14/2015 Dermatophytosis 01/08/2012 Tobacco use disorder 01/08/2012 Hypertensive left ventricular hypertrophy 2011 Immunizations [...] Visual Foot Exam 10/31/2021 Influenza Vaccine (#1) 2025 , 04/27/2018, 04/08/2017, Additional history exists Hepatitis B Vaccine Aged Out No longe r eligible based on patient's age to complete this topic Insurance Medicare Medicare Care Teams Repeater Operator Relationship Specialty Start Date End Date Jr Monzon MD PCP - General Internal Medicine 10/28/21
--- OUTSIDE RECORDS SUMMARY | 2025-05-30 11:28 | XMS_ITS | Encounter Summary ---
Author Organization [employer] Address [address] [facility] [address] 7[address] [place] [address] Care Team Providers Care Vinyl Installer Name Role Phone Jr Osborn MD Primary Care Provide r Encounter Details Date Type Department Care Team (Late st Contact Info) Description 05/29/2025 Telephone [facility] [address] [place], [place] [phone] Hansa Lopez MA Social History Tobacco Use Types Packs/Day Years [...] encounter Miscellaneous Notes * Telephone Encounter - Hansa Lopez MA - 05/29/2025 9:37 AM EST Chart Prep Labs: done Images: not applicable Referrals: not applicable Vaccines due: Covid, Flu, PCV20, Hep B, Hep A, and RSV Screenings: eye exam and foot exam Overdue care gaps: Not applicable documented in this encounter Plan of Treatment Upcoming Encounters Date Type Department Care Team (Late st Contact Info) Description 07/07/2025 10:00 AM EST Office Visit [facility] [address] [place] [address] Dayami Macdonald MD [address] [place] [address] documented as of this encounter Visit Diagnoses Not on filedocumented in this encounter Additional Health Concerns Assessment Noted Time PHQ-9 Depression Total Score: 2 12/14/19 25 10:05 AM EDT documented as of this encounter Care Teams Vinyl Installer Relationship Specialty Start Date End Date Jr Osborn MD [address] [place] [address] PCP - General Internal Medicine 04/24/14 documented as of this encounter
--- OUTSIDE RECORDS SUMMARY | 2025-05-30 11:28 | XMS_ITS | Clinical Summary ---
Author Organization [employer] Address [address] [place] [address] 7t [place] [address] Care Team Providers Care Flume Worker Name Role Phone Jr Osborn MD Primary Care Provide r Allergies Active Allergy Reactions Criticality Noted Date Comments Neo Inhibitors Cough Medium 08/22/2010 Tramadol Nausea Only Low 12/21/2018 Other reaction(s): Vomiting Medications FREESTYLE LITE test stripIndications :Type 2 diabetes 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, with long-term current use of insulin ([facility]) Use to test blood sugar 2 times daily 100 each 12 07/28/19 25 026 Active TRUEplus Lancets 33G miscIndications: Type 2 diabetes 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, with long-term current use of insulin ([facility]) 1 each Once per day. 60 each 6 07/28/19 25 Active Alcohol Swabs 70 % padsIndications: Type 2 diabetes 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, with long-term current use of insulin ([facility]) Use to test blood sugar 2 times daily 100 each 07/28/19 25 Active Blood Glucose Monitoring Suppl (FreeStyle Kincaid Lite) w/Device kitIndications:T ype 2 diabetes 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, with long-term current use of insulin ([facility]) Use to test blood sugar 2 times daily 1 kit 07/28/19 25 Active Dulaglutide (Trulicity) 1.5 MG/0.5ML solution auto-injectorInd ications:Type 2 diabetes 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, with long-term current use of insulin ([facility]) Inject 1.5 mg under the skin 1 (one) time per week. 0.5 mL 6 12/14/19 25 Active metFORMIN XR (Glucophage-XR) 500 MG 24 hr tabletIndication s:Type 2 diabetes mellitus without complication, with long-term current use of insulin (HCC) TAKE 2 TABLETS BY MOUTH EVERY MORNING [...] DAY 90 tablet 1 12/14/19 25 Active simvastatin (Zocor) 20 MG tabletIndication s:Hypercholester olemia TAKE 1 TABLET BY MOUTH EVERY DAY 90 tablet 2 05/30/20 25 Active empagliflozin (Jardiance) 10 MG Take 10 mg by mouth 1 (one) time each day 01/31/20 22 025 Discontinued( erapy completed) tiZANidine (Zanaflex) 2 MG tabletIndication s:Musculoskeleta l Pain Take 1 tablet (2 mg) by mouth every 6 (six) hours if needed for muscle spasms for up to 10 days. 30 tablet 07/17/20 22 025 Discontinued(Th erapy completed) meloxicam (Mobic) 15 MG tabletIndication s:Pain of both hip joints Take 1 tablet (15 mg) by mouth Once per day. 30 tablet 1 01/12/20 24 025 Discontinued(Th erapy completed) simvastatin (Zocor) 20 MG tablet TAKE 1 TABLET BY MOUTH EVERY DAY 90 tablet 1 06/16/20 24 025 Discontinued(Re order (will not trigger notification to Pharmacy)) Active Problems Problem Noted Date Diagnosed Date Chronic right-sided thoracic back pain Assessment & Plan (05/30/2025 10:28 AM EST): Patient with c/o posterior back pain for > 9 months Worse with movement , better at rest Unable to take NSAIDS Plan: Plain films, PT. Declines to take Muscle relaxant Pigmented skin lesion of unc ertain behavior [...] Pt lives alone and would benefit from CROSSING WATCHMAN services I have asked our nurses to assist Assessment & Plan (09/29/2023 9:22 AM EST): Pt with c/o generalized joint pain, more significantly on his hips On exam, no redness sor swelling. Pt having difficulty walking as a result Plan: Uric acid, CRP, MINDY, ESR, Rheum factor Plani films hips, knees, shoulders Rheumatology referral Pt lives alone and would benefit from CROSSING WATCHMAN services I have asked our nurses to [...] Hernandez He developed a reaction to tramadol Preventative health care 07/17/2022 Assessment & Plan (05/30/2025 9:11 AM EST): PSA 12/15/2024 Normal Colonoscopy: 12/12/2015 Dr. Hernandez. FIT 05/02/2025 Negative Assessment & Plan (07/28/2024 9:13 AM EST): [...] month f/u Hypercholesterolemia 10/31/2021 Assessment & Plan (05/30/2025 9:10 AM EST): Pt here for a follow up Most [...] goal for weight loss. Assessment & Plan (12/13/2024 10:05 AM EDT): [...] Essential (primary) hypertension 10/31/2021 Assessment & Plan (05/30/2025 9:09 AM EST): Patient is here for a f/u BP stable He is under the care of Payment Processor Dr Kennedy He is on a regimen [...] counseled about weight loss. Assessment & Plan (12/13/2024 10:05 AM EDT): Patient is here for a f/u I suspect there is an element of white coat hypertention He is already under the care of Payment Processor Dr Kennedy He is on a regimen [...] He is already under the care of Payment Processor Dr Kennedy He is on a regimen [...] He is already under the care of Payment Processor Dr Kennedy He is on a regimen [...] He is already under the care of Payment Processor Dr Kennedy He is on a regimen [...] He is already under the care of Payment Processor Dr Kennedy He is on a regimen [...] He is already under the care of Payment Processor Dr Kennedy He is on a regimen [...] He is already under the care of Payment Processor Dr Kennedy He is on a regimen [...] hypertention He is under the care of Payment Processor Dr Kennedy He is on a regimen [...] 4 months Stage 3a chronic kidney disease (CMS/HCC) 2021 Assessment & Plan (07/28/2024 9:09 AM EST): [...] better BP control Personal history of alcoholism (CMS/HCC) 015 Assessment & Plan (07/28/2024 9:14 AM EST): [...] with renal complication 01/08/2012 Assessment & Plan (05/30/2025 9:39 AM EST): Pt is here for a [...] on a daily basis. Assessment & Plan (12/13/2024 10:22 AM EDT): [...] Encounters Date Type Department Care Team Description 05/30/2025 9:00 AM EST Office Visit [facility] MEDICINE [address] [place] [address] rJ Osborn MD Type 2 diabetes 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, with long-term current use of insulin (HCC) (Primary Dx); Essential (primary) hypertension; Hypercholesterolemia ; Chronic right-sided thoracic back pain; Preventative health care 05/30/2025 Travel 05/29/2025 Telephone [facility] [address] [place] [address] Hansa Lopez MA 05/23/2025 Patient Outreach [address] [address] Jr Osborn MD Pre-visit Planning (SDOH screening was completed on 03/15/2025) 03/23/[address] [address] Jr Osborn MD Nurse Triage 03/23/[address] [address] Jr Osborn MD Canceled 03/23/[address] [address] Jr Osborn MD PROVIDER OUT 03/22/[address] [address] Jr Osborn MD Chart Prep 03/15/2025 Patient Outreach [address] [address] Jr Osborn MD Pre-visit Planning (SDOH Screening negative and Tobacco screening negative) from Last 3 Months Immunizations Immunization Administration [...] Mass Index 34.15 05/30/2025 9:05 AM EST Plan of Treatment Upcoming Encounters Date Type Department Care Team (Late st Contact Info) Description 07/07/2025 10:00 AM EST Office Visit [facility] MED[facility]INE [address] [place] [address] Dayami Macdonald MD [address] [place] [address] Health Maintenance Due Date Last Done Comments [...] (2 - Td or Tdap) 03/23/2022 03/23/2012 Alcohol/Substance Use Screening 07/28/2025 07/28/2024 Tobacco Screening 08/25/2025 08/25/2024 Diabetes: Hemoglobin A1C 11/27/2025 025, 12/13/2024, 07/28/2024, Additional history exists Colonoscopy 12/11/2025 12/12/2015 Colorectal Cancer Screening 12/11/2025 Depression Screening 12/13/2025 12/13/2024, 12/14/19 25 Lipid Panel 12/15/2025 12/15/2024, 03/0 11/2023, 08/25/2023, Additional history exists SDOH Screening 03/15/2026 03/15/2025 Zoster Vaccines Completed 09/02/2021, 04/26, 11/07/2014 Hepatitis C Screening Completed 03/22/2024, 024 Influenza Vaccine Completed 04/12/2025, , 04/27/2022, Additional history exists COVID-19 Vaccine Completed 05/20/2025, , 12/10/2021, Additional history exists HIB Vaccines Aged Out [...] with long-term current use of insulin (HCC) LIPID PANEL, STANDARD Routine 12/15/2024 8:33 AM EDT Hypercholesterolemi a HEPATITIS PANEL, GENERAL Routine 03/22/2024 1:53 PM EDT HM COLONOSCOPY Routine 12/12/2015 from Last 3 Months or Most Recently Relevant to Health Maintenance Results * POCT Urinalysis (05/30/2025 9:43 AM [...] Urine (Urine, Random) 05/30/2025 9:43 AM EST us Jr Rosen MD POINT OF CARE TEST EN TER/EDIT ORDERABLES Final Result * (ABNORMAL) POCT Hgb A1c (05/30/2025 9:33 AM EST) Hemoglobin A1C 6.2(A) 4.0 - 5.7 % QC Media Lot # [id number] Lot# Expiration Date 51,227 Blood 05/30/2025 9:33 AM EST us Jr Rosen MD POINT OF CARE TEST EN TER/EDIT ORDERABLES Final Result * POCT Glucose (05/30/2025 9:21 AM EST) Glucose Blood, POC 107 60 - 200 mg/dL QC Media Lot # [id number] Lot# Expiration Date Blood Capillary blood specimen / Unknown 05/30/2025 9:21 AM EST Jr Rosen MD POINT OF CARE TEST EN TER/EDIT ORDERABLES Final Result * (ABNORMAL) Lipid Panel, Standard (12/15/2024 8:33 AM EDT) Triglycerides 116 <150 mg/dL [facility] Comment:Desirable Triglyceri de: less than 150 mg/dLBorderline High Triglyceride 150-199 mg/dLHigh Triglyceride: 200-499 mg/dLVery High Triglyceride: greater than or equal to 5OO mg/dL Cholesterol 129 <200 mg/dL [facility] Comment:Desirable Cholestero l: less than 200 mg/dLBorderline High Cholesterol: 200-239 mg/dLHigh Cholesterol: greater than 239 mg/dL LDL Cholesterol Calculated 73 <100 mg/dL [facility] Comment:Desirable LDL: less than 100 mg/dLNear Optimal/Above Optimal LDL: 110- 129 mg/dLBorderline High LDL: 130-159 mg/dLHigh LDL: 160-189 mg/dLVery High LDL: greater than or equal to 190 mg/dL HDL Cholesterol 33(L) >40 mg/dL [facility] Comment:Desirable HDL: great er than 40 mg/dL Note: This HDL assay may give artificially low results in patients with liver disease. Blood Venous blood specimen / Unknown 12/15/2024 8:33 AM EDT 12/15/2024 11:04 AM EDT Jr Rosen MD LAB BLOOD ORDERABLES Final Result [facility] [address] [place] [address] [phone] * Hepatitis Panel, General (03/22/2024 1:53 PM EDT) Hepatitis A IgM Nonreactive Nonreactive [facility] Comment:IgM antibodies to ROSS V not detected; does not exclude earlyacute or recovered HAV infection. ~Hepatitis B Surface Antibody GRAYZONE Nonreactive [facility] Comment:GRAYZONE: 8.00 mIU/m L TO 11.99 mIU/mLTHE IMMUNE STATUS OF THE INDIVIDUAL SHOULD BE FURTHERASSESSED BY CONSIDERING OTHER FACTORS, SUCH CLINICALSTATUS, FOLLOW-UP TESTING, ASSOCIATED RISK FACTORS, AND THEUSE OF ADDITIONAL DIAGNOSTIC INFORMATION. Hepatitis B Core Antibody Nonreactive Nonreactive [facility] Hepatitis C Antibody Nonreactive Nonreactive [facility] Comment:Antibodies to HCV no t detected; does not exclude early acuteHCV infection. Hepatitis B Surface Ag Negative Negative [facility] 03/22/2024 1:53 PM EDT 03/22/2024 1:53 PM EDT Generic External Data Provider LAB BLOOD ORDERAB LES Final Result [facility] [address] [place] [address] [phone] * Colonoscopy (12/12/2015) Colonoscopy Normal Normal 12/12/2015 Narrative Cathy Lisa - 12/12/2015 11:20 AM EDT Recommended 10 year follow up ( see scanned notes ) Historical Provider HEALTH MAINTENANCE Edited Result - Final from Last 3 Months or Most Recently Relevant to Health Maintenance [place] [address] [place] [address] [facility] [place] [id number] Care Teams Flume Worker Relationship Specialty Start Date End Date Jr Osborn MD [address] [place] [phone] PCP - General Internal Medicine 04/24/14
--- OUTSIDE RECORDS SUMMARY | 2025-05-30 11:28 | XMS_ITS | Encounter Summary ---
Author Organization [employer] Address [address] [facility] 7t [place] [address] Care Team Providers Care Hair Baler Name Role Phone Jr Osborn MD Primary Care Provide r Encounter Details Date Type Department Care Team (Late st Contact Info) Description 11/28/[address] [facility] [address] [place] [address] [phone] Jr Osborn MD [address] [place] [address] [phone] Social History Tobacco Use Types Packs/Day Years [...] Description 07/07/2025 10:00 AM EST Office Visit [facility] [address] [place] [address] [phone] Dayami Macdonald MD [address] [place], [place] [phone] documented as of this encounter Procedures Procedure [...] on filedocumented in this encounter Care Teams Hair Baler Relationship Specialty Start Date End Date Jr Osborn MD [address] [place] [address] PCP - General Internal Medicine 04/24/14 documented as of this encounter
== END 2025-05-30 09:59 | disposition home or self-care (01) ==
LOC: HO.HHCX 09:58
PROVIDERS: PCP Internal Medicine; Visit Provider Internal Medicine
DX: M54.6 Pain in thoracic spine (principal); G89.29 Other chronic pain; M54.50 Low back pain, unspecified
CPT/HCPCS: 72070; 72100

== ENCOUNTER → 2025-05-30 10:35 | Outpatient (BNV) | payer MEDICARE, SELFPAY | PROVIDERS: PCP Internal Medicine; Visit Provider Radiology Diagnostic Radiology | DX: M47.816 Spondylosis without myelopathy or radiculopathy, lumbar region (principal); M47.815 Spondylosis without myelopathy or radiculopathy, thoracolumbar region | CPT/HCPCS: 72070; 72100 ==